=== PATIENT | female | born 1995 | race African-American/Black ===

== ENCOUNTER → 2019-12-26 11:11 | Outpatient (BNVA) | payer OTHER, SELFPAY | PROVIDERS: PCP Internal Medicine; Referring Provider Internal Medicine; Visit Provider Advanced Practice Midwife | DX: Z76.89 Persons encountering health services in other specified circumstances (principal) ==

== ENCOUNTER 2020-01-10 08:16 | Outpatient (REF) | payer OTHER, SELFPAY ==
[2020-01-11 09:41] LABS: BV Int Neg Control Negative (Negative); BV Int Pos Control Positive (Positive)
== END 2020-01-10 08:17 | disposition home or self-care (01) ==
LOC: HO.LAB 08:16
PROVIDERS: Visit Provider Advanced Practice Midwife
DX: N92.6 Irregular menstruation, unspecified (principal); R10.2 Pelvic and perineal pain; E28.2 Polycystic ovarian syndrome; E66.9 Obesity, unspecified
CPT/HCPCS: 87480; 87510; 87660

== ENCOUNTER 2020-01-16 08:32 | Outpatient (REF) | payer OTHER, SELFPAY ==
--- NOTE | 2020-01-16 08:37 | US_ITS ---
EXAMINATION: PELVIC ULTRASOUND CLINICAL INFORMATION: Pelvic pain COMPARISON: Previous pelvic ultrasound January [address] of the abdomen and pelvis February 2018 TECHNIQUE: Transabdominal and transvaginal pelvic ultrasound. Transvaginal exam was performed for better visualization of the uterus and ovaries. FINDINGS: The uterus is anteverted and measures 10.2 x 5 x 6 cm in dimension. No focal uterine lesion is seen. The endometrium is thickened measuring 3.1 cm. There are nabothian cysts in the cervix. The right ovary is normal-appearing and measures 3.4 x 2.2 x 1.9 cm. The left ovary measures 4 x 2.4 x 2.8 cm contains a 1.5 cm complex cyst with internal echoes. There is no fluid in the pelvis. US/US pelvic complete IMPRESSION: Abnormally thickened endometrium measuring 3.1 cm. Small 1.5 cm complex left ovarian cyst.
--- NOTE | 2020-01-16 08:37 | US_ITS ---
EXAMINATION: PELVIC ULTRASOUND CLINICAL INFORMATION: Pelvic pain COMPARISON: Previous pelvic ultrasound January [address] of the abdomen and pelvis February 2018 TECHNIQUE: Transabdominal and transvaginal pelvic ultrasound. Transvaginal exam was performed for better visualization of the uterus and ovaries. FINDINGS: The uterus is anteverted and measures 10.2 x 5 x 6 cm in dimension. No focal uterine lesion is seen. The endometrium is thickened measuring 3.1 cm. There are nabothian cysts in the cervix. The right ovary is normal-appearing and measures 3.4 x 2.2 x 1.9 cm. The left ovary measures 4 x 2.4 x 2.8 cm contains a 1.5 cm complex cyst with internal echoes. There is no fluid in the pelvis. US/US transvaginal IMPRESSION: Abnormally thickened endometrium measuring 3.1 cm. Small 1.5 cm complex left ovarian cyst.
== END 2020-01-16 08:33 | disposition home or self-care (01) ==
LOC: HO.HMGCX 08:32
PROVIDERS: PCP Internal Medicine; Visit Provider Advanced Practice Midwife
DX: R10.2 Pelvic and perineal pain (principal)
CPT/HCPCS: 76830; 76856

== ENCOUNTER → 2020-01-19 11:27 | Outpatient (BNVA) | payer OTHER, SELFPAY | PROVIDERS: Visit Provider Advanced Practice Midwife | DX: Z76.89 Persons encountering health services in other specified circumstances (principal) ==

== ENCOUNTER 2020-02-27 06:38 | Outpatient (REF) | payer OTHER, SELFPAY ==
[2020-02-27 11:38] LABS: Anion Gap 10 (12-20); Blood Urea Nitrogen 9 mg/dL (9-16); Calcium 8.4 mg/dL (8.4-10.2); Carbon Dioxide 25 mmol/L (22-29); Chloride 105 mmol/L (96-108); Cholesterol 159 mg/dL; Estimated Glomerular Filt Rate > 60; Glucose Fasting 93 mg/dL (60-99); HDL Cholesterol 63 mg/dL; LDL Cholesterol Calculated 82 mg/dl; Potassium 4.1 mmol/l (3.3-5.1); Sodium 136 mmol/L (135-145); Triglycerides 72 mg/dL
[2020-02-27 11:42] LABS: Hematocrit 35.9 % (37-47); Hemoglobin 11.2 g/dl (12.0-16.0); Mean Corpuscular HGB Conc 31.2 g/dl (31.0-35.0); Mean Corpuscular Hemoglobin 25.9 pg (27.0-33.0); Mean Corpuscular Volume 82.9 fL (80-98); Mean Platelet Volume 10.5 fL (9.4-12.3); Platelet Count 382 X10*3/uL (160-400); Red Blood Count 4.33 X10*6/uL (4.20-5.50); Red Cell Distribution Width 15.8 % (11.0-16.0); White Blood Count 7.7 X10*3/uL (4.8-10.8)
[2020-02-27 11:53] LABS: Estimated Average Glucose 120 mg/dL; Hemoglobin A1c % 5.8 %
[2020-03-01 13:27] LABS: Calcium (PTHI) 8.8 mg/dL (8.6-10.2); PTHI 62 pg/mL (14-64)
[2020-03-03 13:32] LABS: Vitamin D 25-OH, D2 <4 ng/mL; Vitamin D 25-OH, D3 10 ng/mL; Vitamin D 25-OH, Total 10 ng/mL (30-100)
== END 2020-02-27 06:39 | disposition home or self-care (01) ==
LOC: HO.HMGCLDS 06:38
PROVIDERS: PCP Internal Medicine; Visit Provider Advanced Practice Midwife
DX: D22.9 Melanocytic nevi, unspecified (principal); R73.03 Prediabetes; E34.9 Endocrine disorder, unspecified; R79.89 Other specified abnormal findings of blood chemistry; M77.8 Other enthesopathies, not elsewhere classified; E66.01 Morbid (severe) obesity due to excess calories; D64.9 Anemia, unspecified; N92.6 Irregular menstruation, unspecified; R10.2 Pelvic and perineal pain; Z76.89 Persons encountering health services in other specified circumstances
CPT/HCPCS: 36415; 80048; 80061; 82306; 83036; 83970; 85027

== ENCOUNTER 2020-03-05 13:05 | Outpatient (REF) | payer OTHER, SELFPAY ==
--- NOTE | 2020-03-05 13:08 | US_ITS ---
EXAMINATION: US PELVIS, COMPLETE US TRANSVAGINAL CLINICAL INFORMATION: Dysmenorrhea. Nonspecific left ovarian cyst. COMPARISON: 01/16/2020 TECHNIQUE: Transabdominal and transvaginal imaging was performed. FINDINGS: LMP: December Uterus is anteverted , measuring 9.2 x 4 x 4.9 cm. No focal uterine lesion. Nabothian cysts present. Endometrial thickness 1 cm. Right ovary measures 4 x 2.2 x 2.2 cm. Volume 10.1 mL. Left ovary measures 3.2 x 2.1 x 2.5 cm. Volume 8.7 mL. Follicles in bilateral ovaries. No significant free fluid in the cul-de-sac. US/US pelvic complete IMPRESSION: Endometrium measures 1 cm, decrease in size as compared to the prior study. Interval resolution of the previously noted complex left ovarian cyst.
--- NOTE | 2020-03-05 13:08 | US_ITS ---
EXAMINATION: US PELVIS, COMPLETE US TRANSVAGINAL CLINICAL INFORMATION: Dysmenorrhea. Nonspecific left ovarian cyst. COMPARISON: 01/16/2020 TECHNIQUE: Transabdominal and transvaginal imaging was performed. FINDINGS: LMP: December Uterus is anteverted , measuring 9.2 x 4 x 4.9 cm. No focal uterine lesion. Nabothian cysts present. Endometrial thickness 1 cm. Right ovary measures 4 x 2.2 x 2.2 cm. Volume 10.1 mL. Left ovary measures 3.2 x 2.1 x 2.5 cm. Volume 8.7 mL. Follicles in bilateral ovaries. No significant free fluid in the cul-de-sac. US/US transvaginal IMPRESSION: Endometrium measures 1 cm, decrease in size as compared to the prior study. Interval resolution of the previously noted complex left ovarian cyst.
== END 2020-03-05 13:06 | disposition home or self-care (01) ==
LOC: HO.HMGCX 13:05
PROVIDERS: PCP Internal Medicine; Visit Provider Advanced Practice Midwife
DX: N83.202 Unspecified ovarian cyst, left side (principal)
CPT/HCPCS: 76830; 76856

== ENCOUNTER 2020-03-21 13:38 | Outpatient (REF) | payer OTHER, SELFPAY ==
[2020-03-21 14:00] LABS: COVID-19 Test Negative (Negative)
== END 2020-03-21 13:39 | disposition home or self-care (01) ==
LOC: HO.EMPCOV 13:38
PROVIDERS: Visit Provider Internal Medicine
DX: Z20.828 Contact with and (suspected) exposure to other viral communicable diseases (principal)
CPT/HCPCS: 87635; C9803

== ENCOUNTER 2020-04-03 13:19 | Outpatient (REF) | payer OTHER, SELFPAY ==
[2020-04-03 13:37] LABS: COVID-19 Test Negative (Negative)
== END 2020-04-03 13:20 | disposition home or self-care (01) ==
LOC: HO.EMPCOV 13:19
PROVIDERS: Visit Provider Internal Medicine
DX: Z20.822 Contact with and (suspected) exposure to COVID-19 (principal)
CPT/HCPCS: 36415; 87635; C9803

== ENCOUNTER → 2020-04-04 10:35 | Outpatient (BNVA) | payer OTHER, SELFPAY | PROVIDERS: Visit Provider Advanced Practice Midwife | DX: Z76.89 Persons encountering health services in other specified circumstances (principal) ==

== ENCOUNTER 2020-04-08 13:46 | Outpatient (REF) | payer OTHER, SELFPAY ==
[2020-04-08 14:08] LABS: COVID-19 Test Negative (Negative)
== END 2020-04-08 13:47 | disposition home or self-care (01) ==
LOC: HO.EMPCOV 13:46
PROVIDERS: Visit Provider Internal Medicine
DX: Z20.822 Contact with and (suspected) exposure to COVID-19 (principal)
CPT/HCPCS: 36415; 87635; C9803

== ENCOUNTER 2020-04-15 09:00 | Outpatient (RCR) | payer OTHER, SELFPAY ==
--- NOTE | 2020-05-03 10:11 | MHC.OT.DC ---
[address] [phone] F: [phone] Occupational Therapy Discharge Note Provider: CHRIS BOLAND MD Diagnosis: RIGHT HAND THUMB TENDONITIS Date of Surgery: Date of Evaluation: 02/29/20 Date of Discharge: 05/03/20 Treatments to Date: 8 Cancellations to Date: 0 No Shows to Date: 0 Discharge Status: Independent with HEP Recommend MD Follow-up Discharge Summary: CON'T MILD RADIAL WRIST AND VOLAR THUMB EDEMA NOTED. CON'T C/O INTERMITTANT PAIN (/10) WITH THUMB ADD/WRIST FLEX AND RADIAL DEV VS ULNA DEV. PLATEAU IN IMPROVEMENT. Electronically Signed By: ROSA BOYER OT CHT Reviewed/agree with student documentation: N/A Therapist: Please Sign and return to therapist, thank you for your referral.
== END 2020-05-03 10:10 | disposition other institution (70) ==
LOC: HO.OT 09:00
PROVIDERS: PCP Internal Medicine; Visit Provider Internal Medicine
DX: M77.8 Other enthesopathies, not elsewhere classified (principal)
CPT/HCPCS: 29125; 97033; 97035; 97110; 97165; 97760

== ENCOUNTER → 2020-04-18 08:58 | Outpatient (BNVA) | payer OTHER, SELFPAY | PROVIDERS: PCP Internal Medicine; Visit Provider Physician Assistant ==

== ENCOUNTER 2020-04-18 10:18 | Outpatient (REF) | payer OTHER, SELFPAY ==
[2020-04-18 10:39] LABS: COVID-19 Test Negative (Negative)
== END 2020-04-18 10:19 | disposition home or self-care (01) ==
LOC: HO.EMPCOV 10:18
PROVIDERS: Visit Provider Internal Medicine
DX: Z20.822 Contact with and (suspected) exposure to COVID-19 (principal)
CPT/HCPCS: 36415; 87635; C9803

== ENCOUNTER → 2020-04-29 08:56 | Outpatient (BNVA) | payer OTHER, SELFPAY | PROVIDERS: PCP Internal Medicine; Visit Provider Physician Assistant ==

== ENCOUNTER 2020-05-08 07:05 | Outpatient (REF) | payer OTHER, SELFPAY ==
[2020-05-08 11:04] LABS: MANUAL DIFF FLAG NO
[2020-05-08 11:18] LABS: Basophils Percent Auto 0.4 % (0-2); Eosinophils Absolute Auto 0.3 X10*3/uL (0.0-0.4); Eosinophils Percent Auto 3.5 % (0-4); Hematocrit 36.4 % (37-47); Hemoglobin 11.2 g/dl (12.0-16.0); Imm Gran Abs Auto 0.02 X10*3/uL (0.00-0.03); Imm Gran Pct Auto 0.3 % (0.0-0.4); Lymphocytes Absolute Auto 2.4 X10*3/uL (1.2-4.9); Lymphocytes Percent Auto 31.1 % (20-40); Mean Corpuscular HGB Conc 30.8 g/dl (31.0-35.0); Mean Corpuscular Volume 81.3 fL (80-98); Mean Platelet Volume 10.8 fL (9.4-12.3); Monocytes Absolute Auto 0.6 X10*3/uL (0.1-1.2); Neutrophils Absolute Auto 4.5 X10*3/uL (2.0-8.3); Neutrophils Percent Auto 57.7 % (45-73); Platelet Count 399 X10*3/uL (160-400); Red Blood Count 4.48 X10*6/uL (4.20-5.50); Red Cell Distribution Width 16.4 % (11.0-16.0); White Blood Count 7.8 X10*3/uL (4.8-10.8)
[2020-05-08 11:52] LABS: Alanine Aminotransferase 23 U/L (0-31); Albumin Level 3.8 g/dL (3.5-5.0); Alkaline Phosphatase 137 U/L (39-117); Anion Gap 13 (12-20); Aspartate Amino Transferase 19 U/L (5-31); Bilirubin Total 0.4 mg/dL (0.0-1.0); Blood Urea Nitrogen 14 mg/dL (9-16); Calcium 8.6 mg/dL (8.4-10.2); Carbon Dioxide 24 mmol/L (22-29); Chloride 104 mmol/L (96-108); Cholesterol 178 mg/dL; Estimated Glomerular Filt Rate > 60; Glucose Fasting 91 mg/dL (60-99); HDL Cholesterol 59 mg/dL; Iron 60 mcg/dL (30-160); LDL Cholesterol Calculated 98 mg/dl; Percent Iron Saturation 18 % (15-50); Potassium 4.2 mmol/L (3.3-5.1); Sodium 137 mmol/L (135-145); Total Iron Binding Capacity 331 mcg/dL (228-428); Triglycerides 106 mg/dL; Unsaturated Iron Binding 271 ug/dL
[2020-05-08 11:59] LABS: Ferritin 33 ng/mL (10-122); TSH reflex Free T4 0.83 uIU/mL (0.32-4.0); Vitamin D 25-OH Total 18.3 ng/mL (>30)
[2020-05-08 12:15] LABS: Estimated Average Glucose 120 mg/dL; Hemoglobin A1c % 5.8 %
[2020-05-08 12:25] LABS: Folate 10.4 ng/mL (> or = 4.0); Vitamin B12 434 pg/mL (200-900)
[2020-05-09 06:32] LABS: Insulin Level Total 47.3 uIU/mL
[2020-05-10 10:37] LABS: Calcium (PTHI) 8.5 mg/dL (8.6-10.2); PTHI 95 pg/mL (14-64)
[2020-05-11 13:02] LABS: Vitamin B1 7 nmol/L (8-30)
[2020-05-13 02:31] LABS: Vitamin A 35 mcg/dL (38-98)
[2020-05-14 01:17] LABS: Zinc 59 mcg/dL (60-130)
== END 2020-05-08 07:06 | disposition home or self-care (01) ==
LOC: HO.HMGCLDS 07:05
PROVIDERS: PCP Internal Medicine; Visit Provider Physician Assistant
DX: E66.01 Morbid (severe) obesity due to excess calories (principal)
CPT/HCPCS: 36415; 80053; 80061; 82306; 82607; 82728; 82746; 83036; 83525; 83540; 83970; 84425; 84443; 84590; 84630; 85025; 86140

== ENCOUNTER → 2020-05-13 09:13 | Outpatient (BNVA) | payer OTHER, SELFPAY | PROVIDERS: PCP Internal Medicine; Visit Provider Surgery ==

== ENCOUNTER 2020-05-13 15:20 | Outpatient (REF) | payer OTHER, SELFPAY ==
[2020-05-14 13:57] LABS: H Pylori Breath Test NOT DETECTED (NOT DETECTED)
== END 2020-05-13 15:21 | disposition home or self-care (01) ==
LOC: HO.LNP 15:20
PROVIDERS: Visit Provider Physician Assistant
DX: E66.01 Morbid (severe) obesity due to excess calories (principal)
CPT/HCPCS: 83013

== ENCOUNTER 2020-05-27 07:17 | Outpatient (REF) | payer OTHER, SELFPAY ==
--- NOTE | 2020-05-27 07:22 | ECG_ITS ---
Test Reason : MORBID OBESITY Blood Pressure : / mmHG Vent. Rate : 073 BPM Atrial Rate : 073 BPM P-R Int : 134 ms QRS Dur : 080 ms QT Int : 386 ms P-R-T Axes : 060 035 021 degrees QTc Int : 425 ms Normal sinus rhythm Normal ECG When compared with ECG of 04-JAN-2018 12:30, No significant change was found Referred By: Jenny Brooks Electronically Signed By:Alexis Macias
[2020-05-27 08:54] LABS: Vitamin D 25-OH Total 18.1 ng/mL (>30)
[2020-05-31 01:57] LABS: Vitamin A 28 mcg/dL (38-98)
== END 2020-05-27 07:18 | disposition home or self-care (01) ==
LOC: HO.LAB 07:17
PROVIDERS: PCP Internal Medicine; Visit Provider Surgery
DX: Z01.818 Encounter for other preprocedural examination (principal); E50.9 Vitamin A deficiency, unspecified; E66.01 Morbid (severe) obesity due to excess calories; R06.02 Shortness of breath; E55.9 Vitamin D deficiency, unspecified; Z71.3 Dietary counseling and surveillance; Z68.42 Body mass index [BMI] 45.0-49.9, adult
CPT/HCPCS: 36415; 82306; 84590; 93005

== ENCOUNTER 2020-05-30 08:12 | Outpatient (REF) | payer OTHER, SELFPAY | END 2020-05-30 08:13 | disposition home or self-care (01) | LOC: HO.LAB 08:12 | PROVIDERS: PCP Internal Medicine; Visit Provider Advanced Practice Midwife | DX: Z01.419 Encounter for gynecological examination (general) (routine) without abnormal findings (principal); E66.01 Morbid (severe) obesity due to excess calories; R06.02 Shortness of breath; Z79.899 Other long term (current) drug therapy | CPT/HCPCS: 88142 ==

== ENCOUNTER 2020-06-11 07:40 | Outpatient (REF) | payer OTHER, SELFPAY ==
[2020-06-11 07:56] LABS: COVID-19 Test Positive (Negative); IDNOW Serial# 55D5AD1C
== END 2020-06-11 07:41 | disposition home or self-care (01) ==
LOC: HO.EMPCOV 07:40
PROVIDERS: Visit Provider Internal Medicine
DX: Z20.822 Contact with and (suspected) exposure to COVID-19 (principal)
CPT/HCPCS: 36415; 87635; C9803

== ENCOUNTER → 2020-06-17 08:10 | Outpatient (BNVA) | payer OTHER, SELFPAY | PROVIDERS: PCP Internal Medicine; Visit Provider Dietitian, Registered ==

== ENCOUNTER 2020-07-01 10:04 | Outpatient (REF) | payer OTHER, SELFPAY | END 2020-07-01 10:05 | disposition home or self-care (01) | LOC: HO.HOSX 10:04 | PROVIDERS: Visit Provider Orthopaedic Surgery | DX: Z13.89 Encounter for screening for other disorder (principal) ==

== ENCOUNTER 2020-07-15 11:49 | Outpatient (REF) | payer OTHER, SELFPAY ==
--- NOTE | ~2020-07-15 | XR_ITS ---
EXAMINATION: XR HAND, RIGHT CLINICAL INFORMATION: Pain COMPARISON: None TECHNIQUE: 3 of the right hand and 2 additional views of the right thumb. FINDINGS: The bones and soft tissues are normal. No fracture. Alignment is anatomic. Joint spaces are maintained. No erosions or soft tissue calcifications. XR/XR hand RT min 3V IMPRESSION: Normal right hand.
== END 2020-07-15 11:50 | disposition home or self-care (01) ==
LOC: HO.HOSX 11:49
PROVIDERS: Visit Provider Orthopaedic Surgery
DX: M65.4 Radial styloid tenosynovitis [de Quervain] (principal); M79.641 Pain in right hand
CPT/HCPCS: 20550; 73130; 99202; J1100

== ENCOUNTER → 2020-09-12 15:38 | Outpatient (BNVA) | payer OTHER, SELFPAY | PROVIDERS: PCP Internal Medicine; Visit Provider Surgery ==

== ENCOUNTER → 2020-09-24 13:05 | Outpatient (BNVA) | payer OTHER, SELFPAY | PROVIDERS: PCP Internal Medicine; Referring Provider Internal Medicine; Visit Provider Surgery ==

== ENCOUNTER → 2020-10-04 08:49 | Outpatient (BNVA) | payer OTHER, SELFPAY | PROVIDERS: PCP Internal Medicine; Visit Provider Advanced Practice Midwife | DX: N93.9 Abnormal uterine and vaginal bleeding, unspecified (principal) | CPT/HCPCS: 81025 ==

== ENCOUNTER 2020-10-08 07:07 | Outpatient (REF) | payer OTHER, SELFPAY ==
--- NOTE | ~2020-10-08 | XR_ITS ---
EXAMINATION: XR CHEST CLINICAL INFORMATION: Shortness of breath COMPARISON: None TECHNIQUE: 2 views of the chest were obtained. FINDINGS: No significant abnormality is noted involving the heart, lungs, mediastinum, bony thorax or soft tissues. XR/XR chest 2V IMPRESSION: Unremarkable chest examination.
[2020-10-08 11:36] LABS: Hematocrit 37.6 % (37-47); Hemoglobin 11.4 g/dl (12.0-16.0); Mean Corpuscular HGB Conc 30.3 g/dl (31.0-35.0); Mean Corpuscular Hemoglobin 24.7 pg (27.0-33.0); Mean Corpuscular Volume 81.4 fL (80-98); Mean Platelet Volume 10.9 fL (9.4-12.3); Platelet Count 384 X10*3/uL (160-400); Red Blood Count 4.62 X10*6/uL (4.20-5.50); Red Cell Distribution Width 16.6 % (11.0-16.0); White Blood Count 7.9 X10*3/uL (4.8-10.8)
[2020-10-08 11:56] LABS: Thyroid Stimulating Hormone 1.28 uIU/mL (0.32-4.0)
== END 2020-10-08 07:08 | disposition home or self-care (01) ==
LOC: HO.HMGCX 07:07
PROVIDERS: Absent Provider Surgery; PCP Internal Medicine; Visit Provider Advanced Practice Midwife
DX: R06.02 Shortness of breath (principal); N92.1 Excessive and frequent menstruation with irregular cycle; N93.9 Abnormal uterine and vaginal bleeding, unspecified
CPT/HCPCS: 36415; 71046; 84443; 85027

== ENCOUNTER 2020-10-11 14:52 | Outpatient (REF) | payer OTHER, SELFPAY | END 2020-10-11 14:53 | disposition home or self-care (01) | LOC: HO.LAB 14:52 | PROVIDERS: PCP Internal Medicine; Visit Provider Advanced Practice Midwife | DX: N92.0 Excessive and frequent menstruation with regular cycle (principal); N94.6 Dysmenorrhea, unspecified | CPT/HCPCS: 58100; 88305 ==

== ENCOUNTER 2020-10-20 04:22 | Emergency (ER) | payer OTHER, SELFPAY ==
--- NOTE | ~2020-10-20 | CT_ITS ---
EXAMINATION: CT ABDOMEN AND PELVIS WITHOUT CONTRAST CLINICAL INFORMATION: Suprapubic pain status post endometrial biopsy. COMPARISON: None TECHNIQUE: Multidetector volumetric imaging was performed from the superior aspect of the liver through the pubic symphysis. Sagittal and coronal reformatted images were obtained on the technologist's workstation. This CT examination was performed using dose optimization techniques as appropriate, variously including the following: *Automated exposure control *Adjustment of mA and/or kV according to patient size (this includes techniques or standardized protocols for targeted exams where dose is matched to indication/reason for exam; i.e. extremities or head) *Use of iterative reconstruction technique DLP: 1131 mGy-cm FINDINGS: LUNG BASES: The visualized lung bases are unremarkable. LIVER, GALLBLADDER, AND BILIARY TREE: The liver is normal in size, shape, and attenuation. No focal hepatic lesion or biliary ductal dilatation is present. Gallbladder unremarkable. PANCREAS: Unremarkable. SPLEEN: Unremarkable. ADRENAL GLANDS: Unremarkable. KIDNEYS AND URETERS: The kidneys are normal in size, shape, and attenuation. There is a 2 mm nonobstructive calculus in upper pole of left kidney. No ureteral calculi or hydronephrosis. No perinephric abnormalities. BLADDER: Underdistended.. GASTROINTESTINAL TRACT: The small and large bowel are unremarkable. The appendix is unremarkable. ABDOMINAL WALL: No significant hernia is appreciated. LYMPH NODES: Normal. VASCULAR: Unremarkable. PELVIC VISCERA: Uterus and adnexa unremarkable. OSSEOUS STRUCTURES: Unremarkable. CT/CT abdomen pelvis wo con IMPRESSION: No acute findings. Nonobstructive 2 mm calculus, left upper kidney.
[2020-10-20 04:24] VITALS: BP 110/61; PULSE 75; RESP 18; TEMP 36.5; O2SAT 95; BMI 31.9
--- NOTE | 2020-10-20 04:51 | ED_ITS ---
HPI - Female Genitourinary General Chief complaint: Vaginal Bleeding Stated complaint: vaginal bleeding/abd pain Time Seen by Provider: 10/20/20 04:44 Source: patient Mode of arrival: ambulatory Limitations: no limitations History of Present Illness HPI Narrative: Patient comes emergency room complaining of vaginal bleeding. Patient states that on October 11 she had an endometrial biopsy done, she did well afterwards, but 1 week later, she started having abdominal cramping and vaginal bleeding. Patient states she changes 2 pads every 4 hours. Related Data Home Medications Medication Instructions Recorded Confirmed fluticasone propionate 50 1 spray INTRANASAL DAILY 10/04/20 mcg/actuation nasal spray,suspension (Flonase Allergy Relief) Previous Rx's Medication Instructions Recorded fluticasone propionate 110 110 mcg INHALATION BID 30 Days #12 02/14/20 mcg/actuation HFA aerosol inhaler g loratadine 10 mg tablet 10 mg PO DAILY 90 Days #90 tab 02/14/20 montelukast 10 mg tablet 10 mg PO DAILY 90 Days #90 tab 02/14/20 cholecalciferol (vitamin D3) 1,250 1,250 mcg PO QWEEK #4 cap 05/13/20 mcg (50,000 unit) capsule valacyclovir 500 mg tablet 500 mg PO BID #60 tab 05/30/20 phentermine 37.5 mg capsule 37.5 mg PO DAILY #30 cap 09/24/20 tranexamic acid 650 mg tablet 1,300 mg PO BID 5 Days #20 tab 10/20/20 Allergies Allergy/AdvReac Type Severity Reaction Status Date / Time No Known Allergies Allergy Verified 10/20/20 04:24 [No Known Allergies*] Review of Systems Review of Systems: Constitutional : No Weight loss, No Fever, No Chills, No Night Sweats, No Fatigue, No Malaise ENT/Mouth : No Hearing loss, No Ear Pain, No Nasal Congestion, No Sinus Pain, No Hoarseness, No sore throat, No Rhinorrhea, No Swallowing Difficulty Eyes: No Eye Pain, No Swelling, No Redness, No Foreign Body, No Discharge, No Vision Changes Cardiovascular : No Chest Pain, No SOB, No Dyspnea on Exertion, No Orthopnea, No Edema, No Palpitations Respiratory : No Cough, No Sputum, No Wheezing, No Smoke Exposure, No Dyspnea Gastrointestinal : No Nausea, No Vomiting, No Diarrhea, No Constipation, suprapubic cramping, No Hematochezia, No Melena Genitourinary : Heavy vaginal bleeding, No Dysuria, No Urinary Frequency, No Hematuria, No Urinary Incontinence, No Urgency, No Flank Pain, No Urinary Flow Changes, No Hesitancy Musculoskeletal : No joint pain, No Myalgias, No Joint Swelling Skin : No Skin Lesions, No rash Neuro : No Weakness, No Numbness, No Paresthesias, No Loss of Consciousness, No Dizziness, No Headache Psych : No Anxiety/Panic, No Depression, No SI/HI/AH/VH, No Social Issues, Heme/Lymph: No Bruising, No Bleeding,No Lymphadenopathy Endocrine : No Polyuria, No Polydipsia, No Temperature Intolerance PMFSH Past Medical History Medical History Adult BMI 45.0-49.9 kg/sq m Change in mole Elevated parathyroid hormone Elevated testosterone level GERD (gastroesophageal reflux disease) Heavy menstrual bleeding History of asthma HSV (herpes simplex virus) infection Hx of constipation Hx of iron deficiency Hx of renal calculi Menometrorrhagia Prediabetes Surgical History History of vocal cord polypectomy Family History Family History Father Diabetes mellitus Mother No problems noted. Brother No problems noted. 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 Oriented X3. No acute distress. Eyes: Pupils equal, round and reactive to light. ENT: Pharynx normal. Neck: Normal inspection. Neck supple. No lymph nodes noted. No crepitus CVS: Normal heart rate and rhythm. Pulses normal. Normal S1 and S2 Respiratory: No respiratory distress. Breath sounds normal. No Wheezing. No rales Abdomen: Soft, moderate discomfort to palpation over the suprapubic area, No rigidity. No distention. : Obvious abnormality seen, [id number] amount of dark blood in the vaginal vault, no active cervical bleeding Skin: Skin warm and dry. Normal skin color. Normal skin turgor. Extremities: No lower extremity edema. No lower extremity edema. No Lacerations. No Rash Neuro: Oriented X 3. No motor deficit. No sensory deficit. Moving all extermities. No slurred speech. Course Course Course Narrative: I discussed the labs and imaging with, she will follow up with her Obgyn MDM - Female Genitourinary Lab Data Result diagrams: 10/20/20 05:01 10/20/20 05:01 Labs: Lab Results 10/20/20 10/20/20 10/20/20 Range/Units 05:01 05:01 05:14 WBC 8.9 (4.8-10.8) X10*3/uL RBC 4.05 L (4.20-5.50) X10*6/uL Hgb 10.3 L (12.0-16.0) g/dl Hct 32.4 L (37-47) % MCV 80.0 (80-98) fL MCH 25.4 L (27.0-33.0) pg MCHC 31.8 (31.0-35.0) g/dl RDW 16.5 H (11.0-16.0) % Plt Count 301 (160-400) X10*3/uL MPV 9.8 (9.4-12.3) fL Immature Gran % (Auto) 0.2 (0.0-0.4) % Neut % (Auto) 59.8 (45-73) % Lymph % (Auto) 29.4 (20-40) % [place] % (Auto) 7.3 (2-11) % Eos % (Auto) 2.9 (0-4) % Baso % (Auto) 0.4 (0-2) % Lymph # (Auto) 2.6 (1.2-4.9) X10*3/uL [place] # (Auto) 0.7 (0.1-1.2) X10*3/uL Eos # (Auto) 0.3 (0.0-0.4) X10*3/uL Baso # (Auto) 0.0 (0.0-0.2) X10*3/uL Abs Immat Gran (auto) 0.02 (0.00-0.03) X10*3/uL Absolute Neuts (auto) 5.3 (2.0-8.3) X10*3/uL Absolute Nucleated RBC 0.000 (0.0-0.012) X10*3/uL Nucleated RBC % (auto) 0.0 (0.0-0.2) /100WBC Sodium 139 (135-145) mmol/L Potassium 3.7 (3.3-5.1) mmol/L Chloride 110 H (96-108) mmol/L Carbon Dioxide 23 (22-29) mmol/L Anion Gap 10 L (12-20) BUN 8 L (9-16) mg/dL Creatinine 0.76 (0.5-1.4) mg/dL Estim Creat Clear Calc 121.1 Estimated GFR > 60 Random Glucose 92 (60-115) mg/dL Calcium 8.4 (8.4-10.2) mg/dL Beta HCG, Quant < 2 mIU/mL Urine Color Urine Appearance Urine pH (5.0-8.0) Ur Specific Dunbar (1.005-1.025) Urine Protein (NEG-TRACE) MG/DL Urine Glucose (UA) (NEG) MG/DL Urine Ketones (NEG) MG/DL Urine Blood (NEG) Urine Nitrite Ur Leukocyte Esterase Urine RBC (0) /HPF Urine WBC (0-4) /HPF Ur Squamous Epith Cells /LPF Urine Bacteria /LPF Urine Mucus /LPF Urine Test NEGATIVE (NEGATIVE) 10/20/20 Range/Units 05:14 WBC (4.8-10.8) X10*3/uL RBC (4.20-5.50) X10*6/uL Hgb (12.0-16.0) g/dl Hct (37-47) % MCV (80-98) fL MCH (27.0-33.0) pg MCHC (31.0-35.0) g/dl RDW (11.0-16.0) % Plt Count (160-400) X10*3/uL MPV (9.4-12.3) fL Immature Gran % (Auto) (0.0-0.4) % Neut % (Auto) (45-73) % Lymph % (Auto) (20-40) % [place] % (Auto) (2-11) % Eos % (Auto) (0-4) % Baso % (Auto) (0-2) % Lymph # (Auto) (1.2-4.9) X10*3/uL [place] # (Auto) (0.1-1.2) X10*3/uL Eos # (Auto) (0.0-0.4) X10*3/uL Baso # (Auto) (0.0-0.2) X10*3/uL Abs Immat Gran (auto) (0.00-0.03) X10*3/uL Absolute Neuts (auto) (2.0-8.3) X10*3/uL Absolute Nucleated RBC (0.0-0.012) X10*3/uL Nucleated RBC % (auto) (0.0-0.2) /100WBC Sodium (135-145) mmol/L Potassium (3.3-5.1) mmol/L Chloride (96-108) mmol/L Carbon Dioxide (22-29) mmol/L Anion Gap (12-20) BUN (9-16) mg/dL Creatinine (0.5-1.4) mg/dL Estim Creat Clear Calc Estimated GFR Random Glucose (60-115) mg/dL Calcium (8.4-10.2) mg/dL Beta HCG, Quant mIU/mL Urine Color RED Urine Appearance TURBID Urine pH 5.0 (5.0-8.0) Ur Specific Dun[place] 1.025 (1.005-1.025) Urine Protein 3+ H (NEG-TRACE) MG/DL Urine Glucose (UA) 100 H (NEG) MG/DL Urine Ketones 15 (NEG) MG/DL Urine Blood 3+ H (NEG) Urine Nitrite Not Reportable Ur Leukocyte Esterase Not Reportable Urine RBC TNTC H (0) /HPF Urine WBC 0 (0-4) /HPF Ur Squamous Epith Cells 2+ /LPF Urine Bacteria NONE /LPF Urine Mucus TRACE /LPF Urine Test (NEGATIVE) Imaging Data CT scan - abdomen: Radiologist's impression: FINDINGS: LUNG BASES: The visualized lung bases are unremarkable.? LIVER, GALLBLADDER, AND BILIARY TREE: The liver is normal in size, shape, and attenuation. No focal hepatic lesion or biliary ductal dilatation is present. Gallbladder unremarkable.? PANCREAS: Unremarkable.? SPLEEN: Unremarkable.? ADRENAL GLANDS: Unremarkable.? KIDNEYS AND URETERS: The kidneys are normal in size, shape, and attenuation. There is a 2 mm nonobstructive calculus in upper pole of left kidney. No ureteral calculi or hydronephrosis. No perinephric abnormalities. BLADDER: Underdistended..? GASTROINTESTINAL TRACT: The small and large bowel are unremarkable. The appendix is unremarkable.? ABDOMINAL WALL: No significant hernia is appreciated.? LYMPH NODES: Normal. VASCULAR: Unremarkable. PELVIC VISCERA: Uterus and adnexa unremarkable.? OSSEOUS STRUCTURES: Unremarkable.? CT/CT abdomen pelvis wo con IMPRESSION: No acute findings. Nonobstructive 2 mm calculus, left upper kidney.? Discharge Plan Discharge Clinical Impression: Abnormal uterine bleeding Patient Disposition: Home, Self-Care Instructions: Menorrhagia (ED) Additional Instructions: Please follow-up with your primary care physician tomorrow. If you have any worsening or new symptoms, please return to the emergency room or call 911 Prescriptions: New tranexamic acid 650 mg tablet 1,300 mg PO BID 5 Days Qty: 20 RF: 0 No Action fluticasone propionate 110 mcg/actuation HFA aerosol inhaler 110 mcg inhalation BID 30 Days Qty: 12 RF: 2 loratadine 10 mg tablet 10 mg PO DAILY 90 Days Qty: 90 RF: 0 montelukast 10 mg tablet 10 mg PO DAILY 90 Days Qty: 90 RF: 1 cholecalciferol (vitamin D3) 1,250 mcg (50,000 unit) capsule 1,250 mcg PO QWEEK Qty: 4 RF: 1 valacyclovir 500 mg tablet 500 mg PO BID Qty: 60 RF: 0 phentermine 37.5 mg capsule 37.5 mg PO DAILY Qty: 30 RF: 0 fluticasone propionate [Flonase Allergy Relief] 50 mcg/actuation spray,suspension 1 spray intranasal DAILY RF: 0
[2020-10-20 05:06] LABS: MANUAL DIFF FLAG NO
[2020-10-20 05:07] LABS: Basophils Percent Auto 0.4 % (0-2); Eosinophils Absolute Auto 0.3 X10*3/uL (0.0-0.4); Eosinophils Percent Auto 2.9 % (0-4); Hematocrit 32.4 % (37-47); Hemoglobin 10.3 g/dl (12.0-16.0); Imm Gran Abs Auto 0.02 X10*3/uL (0.00-0.03); Imm Gran Pct Auto 0.2 % (0.0-0.4); Lymphocytes Absolute Auto 2.6 X10*3/uL (1.2-4.9); Lymphocytes Percent Auto 29.4 % (20-40); Mean Corpuscular HGB Conc 31.8 g/dl (31.0-35.0); Mean Corpuscular Hemoglobin 25.4 pg (27.0-33.0); Mean Platelet Volume 9.8 fL (9.4-12.3); Monocytes Absolute Auto 0.7 X10*3/uL (0.1-1.2); Monocytes Percent Auto 7.3 % (2-11); Neutrophils Absolute Auto 5.3 X10*3/uL (2.0-8.3); Neutrophils Percent Auto 59.8 % (45-73); Platelet Count 301 X10*3/uL (160-400); Red Blood Count 4.05 X10*6/uL (4.20-5.50); Red Cell Distribution Width 16.5 % (11.0-16.0); White Blood Count 8.9 X10*3/uL (4.8-10.8)
[2020-10-20 05:26] LABS: Glucose Urine UA 100 MG/DL (NEG); Specific Gravity - Urine 1.025 (1.005-1.025); UACC Culture Trigger YES; Urine Blood 3+ (NEG); Urine Ketones 15 MG/DL (NEG); Urine Protein 3+ MG/DL (NEG-TRACE)
[2020-10-20 05:29] LABS: Appearance Urine TURBID; Color Urine RED
[2020-10-20 05:31] LABS: Anion Gap 10 (12-20); Blood Urea Nitrogen 8 mg/dL (9-16); Calcium 8.4 mg/dL (8.4-10.2); Carbon Dioxide 23 mmol/L (22-29); Chloride 110 mmol/L (96-108); Creatinine Clr Calc Pharmacy 121.1; Estimated Glomerular Filt Rate > 60; Glucose Random 92 mg/dL (60-115); Potassium 3.7 mmol/L (3.3-5.1); Sodium 139 mmol/L (135-145)
[2020-10-20 05:32] LABS: UPreg QC Valid YES; Urine Pregnancy NEGATIVE (NEGATIVE)
[2020-10-20 05:37] LABS: Mucus Urine TRACE /LPF; RBC Urine TNTC /HPF (0); Squamous Epithelial Cell Urine 2+ /LPF; WBC Urine 0 /HPF (0-4)
[2020-10-20 05:38] LABS: HCG Quantitative < 2 mIU/mL
== END 2020-10-20 06:23 | disposition home or self-care (01) ==
PROVIDERS: Emergency Provider Emergency Medicine; PCP Internal Medicine
DX: N92.0 Excessive and frequent menstruation with regular cycle (principal); Z79.899 Other long term (current) drug therapy
CPT/HCPCS: 36415; 74176; 80048; 81001; 81025; 84702; 85025; 99283

== ENCOUNTER → 2020-10-21 09:11 | Outpatient (BNVA) | payer OTHER, SELFPAY | PROVIDERS: PCP Internal Medicine; Referring Provider Internal Medicine; Visit Provider Surgery ==

== ENCOUNTER 2020-10-22 13:06 | Outpatient (REF) | payer OTHER, SELFPAY ==
[2020-10-22 14:01] LABS: MANUAL DIFF FLAG NO
[2020-10-22 14:06] LABS: Basophils Percent Auto 0.5 % (0-2); Eosinophils Absolute Auto 0.2 X10*3/uL (0.0-0.4); Eosinophils Percent Auto 1.8 % (0-4); Hematocrit 35.1 % (37-47); Hemoglobin 10.8 g/dl (12.0-16.0); Imm Gran Abs Auto 0.02 X10*3/uL (0.00-0.03); Imm Gran Pct Auto 0.2 % (0.0-0.4); Lymphocytes Absolute Auto 2.6 X10*3/uL (1.2-4.9); Lymphocytes Percent Auto 29.2 % (20-40); Mean Corpuscular HGB Conc 30.8 g/dl (31.0-35.0); Mean Corpuscular Hemoglobin 24.8 pg (27.0-33.0); Mean Corpuscular Volume 80.7 fL (80-98); Mean Platelet Volume 10.5 fL (9.4-12.3); Monocytes Absolute Auto 0.5 X10*3/uL (0.1-1.2); Monocytes Percent Auto 5.1 % (2-11); Neutrophils Absolute Auto 5.6 X10*3/uL (2.0-8.3); Neutrophils Percent Auto 63.2 % (45-73); Platelet Count 353 X10*3/uL (160-400); Red Blood Count 4.35 X10*6/uL (4.20-5.50); Red Cell Distribution Width 16.4 % (11.0-16.0); White Blood Count 8.8 X10*3/uL (4.8-10.8)
== END 2020-10-22 13:07 | disposition home or self-care (01) ==
LOC: HO.HMGCLDS 13:06
PROVIDERS: PCP Internal Medicine; Visit Provider Advanced Practice Midwife
DX: N93.9 Abnormal uterine and vaginal bleeding, unspecified (principal)
CPT/HCPCS: 36415; 85025

== ENCOUNTER → 2020-11-26 08:34 | Outpatient (BNVA) | payer SELFPAY | PROVIDERS: PCP Internal Medicine | DX: Z20.822 Contact with and (suspected) exposure to COVID-19 (principal) | CPT/HCPCS: 36415; 87635 ==

== ENCOUNTER → 2020-12-25 15:09 | Outpatient (BNVA) | payer OTHER, SELFPAY | PROVIDERS: PCP Internal Medicine; Referring Provider Internal Medicine; Visit Provider Surgery ==

== ENCOUNTER → 2021-01-13 14:06 | Outpatient (BNVA) | payer OTHER, SELFPAY | PROVIDERS: PCP Internal Medicine; Referring Provider Internal Medicine; Visit Provider Physician Assistant Surgical | DX: N93.9 Abnormal uterine and vaginal bleeding, unspecified (principal) | CPT/HCPCS: 81025 ==

== ENCOUNTER 2021-03-06 22:07 | Emergency (ER) | payer OTHER, SELFPAY ==
--- NOTE | ~2021-03-06 | XR_ITS ---
EXAMINATION: XR CHEST CLINICAL INFORMATION: Pain COMPARISON: None TECHNIQUE: 2 views of the chest were obtained. FINDINGS: No significant abnormality is noted involving the heart, lungs, mediastinum, bony thorax or soft tissues. XR/XR chest 2V IMPRESSION: Unremarkable examination.
[2021-03-06 22:10] VITALS: BP 137/77; PULSE 88; RESP 20; TEMP 36.6; O2SAT 97; BMI 47.5
[2021-03-07 03:03] VITALS: BP 140/71; PULSE 84; RESP 18; O2SAT 98
[2021-03-07 04:05] VITALS: BP 103/61; PULSE 77; RESP 16; O2SAT 98
[2021-03-07 06:10] VITALS: BP 123/75; PULSE 75; RESP 100; TEMP 36.6; O2SAT 100
--- NOTE | 2021-03-07 06:43 | ED.BACK ---
HPI - Back Pain/Injury General Chief Complaint: Back Pain/Injury Stated Complaint: sob ,dry cough ,upper back pain Time Seen by Provider: 03/07/21 06:43 Source: patient Mode of arrival: ambulatory Limitations: no limitations History of Present Illness MD elicited complaint: back pain Pertinent past history: other (recent URI with coughing) Onset (ago): week(s) (1) Timing: constant Severity: moderate Similar Symptoms Previously: No Quality: sharp Location: thoracic spine Radiation: none Exacerbating factors: movement, deep breaths, coughing/sneezing and lifting Relieving factors: none Context: other (started after URI) Associated symptoms: denies other symptoms Work related injury: No Related Data Previous Rx's Medication Instructions Recorded progesterone micronized 200 mg 200 mg PO BEDTIME 10 Days #30 cap 01/20/21 capsule (Prometrium) amoxicillin 875 mg-potassium 1 tab PO Q12H 7 Days #14 tab 02/12/21 clavulanate 125 mg tablet (Augmentin) albuterol sulfate 90 mcg/actuation 1 inh INHALATION QID PRN 30 Days 02/18/21 aerosol inhaler (ProAir HFA) #18 g fluconazole 150 mg tablet 150 mg PO Q3D 0 Days #2 tab 02/18/21 (Diflucan) fluticasone propionate 110 110 mcg INHALATION BID 30 Days #12 02/18/21 mcg/actuation HFA aerosol inhaler g fluticasone propionate 50 1 spray INTRANASAL DAILY 30 Days 02/18/21 mcg/actuation nasal #16 g spray,suspension (Flonase Allergy Relief) loratadine 10 mg tablet 10 mg PO DAILY 90 Days #90 tab 02/18/21 montelukast 10 mg tablet 10 mg PO DAILY 90 Days #90 tab 02/18/21 cyclobenzaprine 10 mg tablet 10 mg PO TID PRN #14 tab 03/07/21 lidocaine 5 % topical patch 1 patch TOPICAL DAILY PRN #30 ea 03/07/21 Allergies Allergy/AdvReac Type Severity Reaction Status Date / Time No Known Allergies Allergy Verified 02/18/21 09:18 [No Known Allergies*] Review of Systems Review of Systems: Constitutional : No Weight loss, No Fever, No Chills, ENT/Mouth : No Hearing loss, No Ear Pain, No Nasal Congestion, No Sinus Pain, No Hoarseness, No sore throat, No Rhinorrhea, No Swallowing Difficulty Cardiovascular : No Chest Pain, No SOB Respiratory :pos Cough, No Dyspnea Gastrointestinal : No Nausea, No Vomiting, No Diarrhea, No abdominal Pain, No Hematochezia, No Melena Genitourinary : No Dysuria, No Urinary Frequency, No Hematuria, No Urinary Incontinence, Musculoskeletal : positive back pain Skin : No Skin Lesions, No rash Neuro : No Weakness, No Numbness, No Paresthesias, no loss of bowel or bladder incontinence, no saddle anesthesia PMFSH Past Medical History Medical History Adult BMI 45.0-49.9 kg/sq m Change in mole Elevated parathyroid hormone Elevated testosterone level GERD (gastroesophageal reflux disease) Heavy menstrual bleeding History of asthma HSV (herpes simplex virus) infection Hx of constipation Hx of iron deficiency Hx of renal calculi Menometrorrhagia Prediabetes Surgical History History of vocal cord polypectomy Family History Family History Father Diabetes mellitus Mother No problems noted. Brother No problems noted. 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 Oriented X3. No acute distress. Eyes: Pupils equal, round and reactive to light. ENT: Pharynx normal. Neck: Normal inspection. Neck supple. CVS: Normal heart rate and rhythm. Pulses normal. Respiratory: No respiratory distress. Breath sounds normal. Abdomen: Soft and nontender. Back: ttp along Left paraspinals and left rhomboids that reproduce the pain Skin: Skin warm and dry. Normal skin color. Normal skin turgor. Extremities: No lower extremity edema. No calf ttp Neuro: Oriented X 3. No motor deficit. No sensory deficit. MDM - Back Pain/Injury MDM Narrative Medical decision making narrative: 25 yo female with L sided paraspinal and rhomboid pain post URI likely due to coughing - suspect MSK it is all reproduceable. Her xray is negative, she has no hypoxia no signs of DVT doubt PE. Will start on flexeril and lidocaine patches. Discharge Plan Discharge Clinical Impression: Acute thoracic myofascial strain Qualifiers: Encounter type: initial encounter Qualified Code(s): S29.019A - Strain of muscle and tendon of unspecified wall of thorax, initial encounter Patient Disposition: Home, Self-Care Instructions: Muscle Strain (ED) Additional Instructions: return to ED for any worsening symptoms or concerns Prescriptions: New cyclobenzaprine 10 mg tablet 10 mg PO TID PRN (Reason: muscle spasm) Qty: 14 RF: 0 lidocaine 5 % adhesive patch,medicated 1 patch topical DAILY PRN (Reason: pain) Qty: 30 RF: 0 No Action progesterone micronized [Prometrium] 200 mg capsule 200 mg PO BEDTIME 10 Days Qty: 30 RF: 0 fluticasone propionate 110 mcg/actuation HFA aerosol inhaler 110 mcg inhalation BID 30 Days Qty: 12 RF: 5 fluticasone propionate [Flonase Allergy Relief] 50 mcg/actuation spray,suspension 1 spray intranasal DAILY 30 Days Qty: 16 RF: 5 loratadine 10 mg tablet 10 mg PO DAILY 90 Days Qty: 90 RF: 0 fluconazole [Diflucan] 150 mg tablet 150 mg PO Q3D 0 Days Qty: 2 RF: 0 montelukast 10 mg tablet 10 mg PO DAILY 90 Days Qty: 90 RF: 1 albuterol sulfate [ProAir HFA] 90 mcg/actuation HFA aerosol inhaler 1 inh inhalation QID PRN (Reason: shortness of breath or wheezing) 30 Days Qty: 18 RF: 5 amoxicillin-pot clavulanate [Augmentin] 875-125 mg tablet 1 tab PO Q12H 7 Days Qty: 14 RF: 0 Stand Alone Forms: Work/School Release
== END 2021-03-07 07:14 | disposition home or self-care (01) ==
PROVIDERS: Emergency Provider Emergency Medicine; PCP Psychiatry & Neurology Neurology
DX: S29.019A Strain of muscle and tendon of unspecified wall of thorax, initial encounter (principal); R06.02 Shortness of breath; X58.XXXA Exposure to other specified factors, initial encounter; Y93.9 Activity, unspecified; Y92.9 Unspecified place or not applicable; Y99.9 Unspecified external cause status; Z79.899 Other long term (current) drug therapy
CPT/HCPCS: 71046; 99283; 99284

== ENCOUNTER → 2021-03-11 15:43 | Outpatient (BNVA) | payer OTHER, SELFPAY | PROVIDERS: PCP Internal Medicine; Visit Provider Physician Assistant Surgical ==

== ENCOUNTER → 2021-06-04 14:55 | Outpatient (BNVA) | payer OTHER, SELFPAY | PROVIDERS: PCP Internal Medicine; Referring Provider Internal Medicine; Visit Provider Physician Assistant Surgical | DX: E66.01 Morbid (severe) obesity due to excess calories (principal); Z79.899 Other long term (current) drug therapy; Z71.3 Dietary counseling and surveillance; Z68.41 Body mass index [BMI] 40.0-44.9, adult; Z48.815 Encounter for surgical aftercare following surgery on the digestive system | CPT/HCPCS: 99212 ==

== ENCOUNTER 2021-07-04 08:45 | Outpatient (REF) | payer OTHER, SELFPAY ==
[2021-07-04 16:09] LABS: CT PCR NOT DETECTED (Not Detect.); NG PCR NOT DETECTED (Not Detect.)
[2021-07-05 13:06] LABS: BV Int Neg Control Negative (Negative); BV Int Pos Control Positive (Positive)
== END 2021-07-04 08:46 | disposition home or self-care (01) ==
LOC: HO.LAB 08:45
PROVIDERS: Visit Provider Advanced Practice Midwife
DX: Z01.411 Encounter for gynecological examination (general) (routine) with abnormal findings (principal); N94.10 Unspecified dyspareunia; N92.6 Irregular menstruation, unspecified; Z20.2 Contact with and (suspected) exposure to infections with a predominantly sexual mode of transmission
CPT/HCPCS: 87480; 87491; 87510; 87591; 87660

== ENCOUNTER 2021-09-02 14:20 | Outpatient (REF) | payer OTHER, SELFPAY ==
--- NOTE | ~2021-09-02 | XR_ITS ---
EXAMINATION: XR FOOT, RIGHT CLINICAL INFORMATION: Pain. COMPARISON: None TECHNIQUE: AP, lateral, and oblique views of the right foot. FINDINGS: There is no visible acute fracture or dislocation. Alignment is anatomic. Joint spaces are maintained. There is a small calcaneal heel enthesophyte. Minimal dorsal mid to distal foot soft tissue swelling seen XR/XR foot RT min 3V IMPRESSION: No [id number] calcaneus enthesophyte. No visible acute fracture or dislocation. Moderate distal dorsal foot soft tissue swelling.
[2021-09-02 16:30] LABS: MANUAL DIFF FLAG NO
[2021-09-02 16:33] LABS: Basophils Percent Auto 0.4 % (0-2); Eosinophils Absolute Auto 0.3 X10*3/uL (0.0-0.4); Eosinophils Percent Auto 2.8 % (0-4); Hematocrit 34.4 % (37.0-47.0); Hemoglobin 10.6 g/dl (12.0-16.0); Imm Gran Abs Auto 0.05 X10*3/uL (0.00-0.03); Imm Gran Pct Auto 0.5 % (0.0-0.4); Lymphocytes Absolute Auto 2.5 X10*3/uL (1.2-4.9); Lymphocytes Percent Auto 22.7 % (20-40); Mean Corpuscular HGB Conc 30.8 g/dl (31.0-35.0); Mean Corpuscular Hemoglobin 24.3 pg (27.0-33.0); Mean Corpuscular Volume 78.9 fL (80.0-98.0); Mean Platelet Volume 10.5 fL (9.4-12.3); Monocytes Absolute Auto 0.6 X10*3/uL (0.1-1.2); Monocytes Percent Auto 5.1 % (2-11); Neutrophils Absolute Auto 7.5 x10*3/uL (2.0-8.3); Neutrophils Percent Auto 68.5 % (45-73); Platelet Count 401 X10*3/uL (160-400); Red Blood Count 4.36 X10*6/uL (4.20-5.50); Red Cell Distribution Width 18.1 % (11.0-16.0)
[2021-09-02 16:48] LABS: Alanine Aminotransferase 18 U/L (0-31); Albumin Level 3.8 g/dL (3.5-5.0); Alkaline Phosphatase 140 U/L (39-117); Anion Gap 13 (12-20); Aspartate Amino Transferase 14 U/L (5-31); Bilirubin Total < 0.2 mg/dL (0.0-1.0); Blood Urea Nitrogen 8 mg/dL (9-16); Calcium 8.6 mg/dL (8.4-10.2); Carbon Dioxide 23 mmol/L (22-29); Chloride 107 mmol/L (96-108); Estimated Glomerular Filt Rate > 60; Glucose Random 94 mg/dL (60-115); Sodium 139 mmol/L (135-145); Total Protein 7.3 g/dL (6.5-8.0)
[2021-09-02 16:54] LABS: Estimated Average Glucose 117 mg/dL; Hemoglobin A1c % 5.7 %
[2021-09-02 17:10] LABS: Ferritin 35 ng/mL (10-122)
[2021-09-02 17:13] LABS: Vitamin B12 479 pg/mL (200-900)
[2021-09-06 13:20] LABS: Vitamin D 25-OH, D2 <4 ng/mL; Vitamin D 25-OH, D3 17 ng/mL; Vitamin D 25-OH, Total 17 ng/mL (30-100)
== END 2021-09-02 14:21 | disposition home or self-care (01) ==
LOC: HO.HMGCX 14:20
PROVIDERS: PCP Internal Medicine; Visit Provider Internal Medicine
DX: R53.83 Other fatigue (principal); E66.01 Morbid (severe) obesity due to excess calories; M72.2 Plantar fascial fibromatosis; J45.909 Unspecified asthma, uncomplicated; E53.8 Deficiency of other specified B group vitamins; D50.9 Iron deficiency anemia, unspecified; E55.9 Vitamin D deficiency, unspecified; R73.03 Prediabetes; M79.671 Pain in right foot; Z68.41 Body mass index [BMI] 40.0-44.9, adult
CPT/HCPCS: 36415; 73630; 80053; 82306; 82607; 82728; 83036; 84443; 85025

== ENCOUNTER 2021-10-16 19:26 | Emergency (ER) | payer OTHER, SELFPAY ==
[2021-10-16 21:42] VITALS: BP 119/65; PULSE 87; RESP 18; TEMP 37.2; O2SAT 100; BMI 48.2
--- NOTE | 2021-10-16 21:46 | ECG_ITS ---
Test Reason : DIZZINESS Blood Pressure : / mmHG Vent. Rate : 079 BPM Atrial Rate : 079 BPM P-R Int : 144 ms QRS Dur : 082 ms QT Int : 402 ms P-R-T Axes : 061 020 012 degrees QTc Int : 460 ms Normal sinus rhythm Normal ECG When compared with ECG of 27-MAY-2020 07:28, No significant change was found Referred By: Generic ED Physician Electronically Signed By:CACHORRO STUBBS
[2021-10-16 23:44] LABS: MANUAL DIFF FLAG NO
[2021-10-17 00:04] LABS: Alanine Aminotransferase 18 U/L (0-31); Albumin Level 3.7 g/dL (3.5-5.0); Alkaline Phosphatase 127 U/L (39-117); Anion Gap 11 (12-20); Aspartate Amino Transferase 17 U/L (5-31); Bilirubin Total < 0.2 mg/dL (0.0-1.0); Blood Urea Nitrogen 9 mg/dL (9-16); Calcium 8.4 mg/dL (8.4-10.2); Carbon Dioxide 23 mmol/L (22-29); Chloride 106 mmol/L (96-108); Estimated Glomerular Filt Rate > 60; Glucose Random 112 mg/dL (60-115); Potassium 3.8 mmol/L (3.3-5.1); Sodium 136 mmol/L (135-145); Total Protein 6.8 g/dL (6.5-8.0)
[2021-10-17 00:05] LABS: COVID-19 Test Negative (Negative)
[2021-10-17 00:07] LABS: Appearance Urine CLEAR; Color Urine YELLOW; Glucose Urine UA NEG (NEG); Leukocyte Esterase Urine NEG (NEG); Nitrite Urine NEG (NEG); Specific Gravity - Urine >= 1.030 (1.005-1.025); Urine Blood NEG (NEG); Urine Ketones NEG (NEG); Urine Protein TRACE MG/DL (NEG-TRACE)
[2021-10-17 00:08] LABS: Basophils Percent Auto 0.3 % (0-2); Eosinophils Absolute Auto 0.2 X10*3/uL (0.0-0.4); Eosinophils Percent Auto 2.4 % (0-4); Hematocrit 32.4 % (37.0-47.0); Hemoglobin 9.6 g/dl (12.0-16.0); Imm Gran Abs Auto 0.02 X10*3/uL (0.00-0.03); Imm Gran Pct Auto 0.2 % (0.0-0.4); Lymphocytes Absolute Auto 3.3 X10*3/uL (1.2-4.9); Lymphocytes Percent Auto 33.1 % (20-40); Mean Corpuscular HGB Conc 29.6 g/dl (31.0-35.0); Mean Corpuscular Hemoglobin 23.1 pg (27.0-33.0); Mean Corpuscular Volume 77.9 fL (80.0-98.0); Mean Platelet Volume 9.8 fL (9.4-12.3); Monocytes Absolute Auto 0.6 X10*3/uL (0.1-1.2); Monocytes Percent Auto 5.9 % (2-11); Neutrophils Absolute Auto 5.9 x10*3/uL (2.0-8.3); Neutrophils Percent Auto 58.1 % (45-73); Platelet Count 359 X10*3/uL (160-400); Red Blood Count 4.16 X10*6/uL (4.20-5.50); Red Cell Distribution Width 17.6 % (11.0-16.0); White Blood Count 10.1 X10*3/uL (4.8-10.8)
[2021-10-17 00:09] LABS: HCG Quantitative < 2 mIU/mL; Troponin-I High Sensitivity < 3.5 ng/L (<3.5-17.0)
[2021-10-17 00:11] LABS: UPreg QC Valid YES; Urine Pregnancy NEGATIVE (NEGATIVE)
--- NOTE | 2021-10-17 03:11 | ED.NAVMDI ---
HPI - Nausea/Vomiting/Diarrhea General Chief complaint: Nausea/Vomiting/Diarrhea Stated complaint: lighthead, dizziness, chest pain Time Seen by Provider: 10/17/21 02:48 Source: patient Mode of arrival: ambulatory Limitations: no limitations History of Present Illness HPI Narrative: 26-year-old female who presents emergency department for evaluation of nausea, vomiting, lightheadedness, abdominal pain and chest pain. The patient states that for the past 1 and half weeks she has been having abdominal pain. She points to her epigastric area when asked to localize the pain. She describes the pain as a intermittent nauseous like feeling which is worse immediately after she eats. The patient states she has been vomiting intermittently once or twice every several days. She states she has continuous nausea. Patient also states she has been experiencing chest pain. She runs or hand along her sternum when asked to localize the pain. She states that the pain is a squeezing like sensation which is 7/10 at its worst. She denied fever, chills, sore throat, cough, shortness of breath, dyspnea on exertion, frequency, urgency, dysuria or change in bowel moved MD elicited complaint: nausea and vomiting Onset (ago): week(s) (1.5) Description of vomiting: food contents Associated nausea: Yes Associated abdominal pain: Yes Location of pain: epigastric Radiation: chest Pain consistency: intermittent Severity: severe Pain scale (0-10): 7 Quality: sharp Exacerbating factors: eating Relieving factors: none Related Data Previous Rx's Medication Instructions Recorded albuterol sulfate 90 mcg/actuation 1 inh inhalation QID PRN shortness 02/18/21 aerosol inhaler (ProAir HFA) of breath or wheezing 30 days #18 grams fluticasone propionate 110 110 mcg inhalation BID 30 days #12 02/18/21 mcg/actuation HFA aerosol inhaler grams fluticasone propionate 50 1 spray intranasal DAILY 30 days 02/18/21 mcg/actuation nasal #16 grams spray,suspension (Flonase Allergy Relief) pantoprazole 40 mg tablet,delayed 40 mg PO DAILY #30 tabs 06/04/21 release loratadine 10 mg tablet 10 mg PO DAILY 90 days #90 tabs 06/06/21 montelukast 10 mg tablet 10 mg PO DAILY 90 days #90 tabs 06/06/21 vitamin with calcium 1 tab PO DAILY #30 tabs 07/04/21 no.72-iron 27 mg-folic acid 1 mg tablet ( Vitamins Plus Low Iron) metronidazole 500 mg tablet 500 mg PO BID 7 days #14 tabs 07/10/21 cholecalciferol (vitamin D3) 25 25 mcg PO DAILY 90 days #90 caps 09/12/21 mcg (1,000 unit) capsule ferrous sulfate 324 mg (65 mg 324 mg PO BID 90 days #180 tabs 09/12/21 iron) tablet,delayed release ferrous gluconate 324 mg (38 mg 324 mg PO TID 60 days #180 tabs 10/17/21 iron) tablet omeprazole 20 mg capsule,delayed 20 mg PO DAILY 30 days #30 caps 10/17/21 release ondansetron 4 mg disintegrating 4 mg PO Q6-8H PRN nausea and 10/17/21 tablet vomiting #14 tabs Allergies Allergy/AdvReac Type Severity Reaction Status Date / Time No Known Allergies Allergy Verified 09/02/21 14:41 [No Known Allergies*] Review of Systems Review of Systems: Yes all other systems are reviewed and are negative Gastrointestinal: Gastrointestinal: Reports nausea PMFSH Past Medical History PMFSH Narrative: Past medical history: Asthma, depression, COVID infection, iron deficient anemia,. Social history: She denies tobacco, alcohol and drug use Medical History Adult BMI 45.0-49.9 kg/sq m Change in mole Elevated parathyroid hormone Elevated testosterone level GERD (gastroesophageal reflux disease) Heavy menstrual bleeding History of asthma HSV (herpes simplex virus) infection Hx of constipation Hx of iron deficiency Hx of renal calculi Menometrorrhagia Prediabetes Surgical History History of vocal cord polypectomy Family History Family History Father Diabetes mellitus Mother No problems noted. Brother No problems noted. 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 Gender identity: Female Cognitive needs: No Hearing needs: No Vision needs: No Physical Exam Vital Signs: Vital Signs: Last Vital Signs Temp 98.9 F 10/16/21 21:42 Pulse 87 10/16/21 21:42 Resp 18 10/16/21 21:42 BP 119/65 10/16/21 21:42 Pulse Ox 100 10/16/21 21:42 O2 Del Method 10/16/21 21:42 BMI result Body Mass Index 48.2 Const: General: cooperative and no acute distress Orientation/consciousness: oriented to person and oriented to place Limitations: no limitations HEENT: Head: Yes normal to inspection, Yes normocephalic and Yes atraumatic Ears: external ears normal General nose exam: Normal external nose present Face and sinus: Yes normal facial exam Mouth: Normal oral and palatal mucosa present Throat: Yes posterior oropharynx normal Eyes: General: appearance normal, both eyes and all related structures Pupils: Equal, round and reactive pupils present Neck: Neck: Yes normal visual inspection, Yes no lymphadenopathy, Yes trachea midline and Yes supple Chest: Chest palpation & inspection: normal inspection of the chest and normal palpation of entire chest wall Resp: Effort & Inspection: normal respiratory effort and able to speak in complete sentences Auscultation: clear to auscultation bilaterally Cardio: Rate: regular rate Rhythm: regular rhythm Heart sounds: S1 normal heart sound present, S2 normal heart sound present and no murmurs GI: Inspection: Yes normal to inspection Palpation (GI): Soft to palpation, Tenderness to palpation present (GI) in the epigastrum (Moderate) and no guarding Auscultation: normal bowel sounds : General: Yes no CVA tenderness Back/Spine/Pelvis: Back: no CVA tenderness Skin: General skin exam: no rashes or lesions noted Neuro: General: oriented to person and oriented to place Cranial nerves: Yes CN's II-XII intact bilaterally and Yes Equal, round and reactive pupils present Cognition (Neuro): normal cognition Motor exam (neuro): 5/5 motor strength present throughout Extrem: General: Yes normal to inspection Psych: Appearance: grossly normal Speech and movement: Normal speech and movement present Affect: normal affect Attitude: cooperative Thought process: Normal thought process present Thought content: Normal thought content present Course Course Course Narrative: 26-year-old female who presents emergency department for evaluation of nausea, vomiting, chest pain, abdominal pain and dizziness x1 half weeks. Patient's vital signs were normal. Physical examination did reveal epigastric tenderness. Laboratory evaluation revealed microcytic anemia with an H&H of 9.6 and 32.4. Quantitative beta-hCG was below detectable limits. COVID-19 was negative. Urinalysis was negative. Twelve EKG was unremarkable. Patient's presentation is consistent with a acute gastritis and esophagitis. I did discuss this with the patient. Patient was prescribed Prilosec 20 mg once a day for 1 month, Zofran ODT 4 mg every 6-8 hours as needed for nausea and vomiting and ferrous gluconate 3 times a day for 60 days. She was given a work note. She was given printed and verbal instructions and discharged home MDM - Nausea/Vomiting/Diarrhea Lab Data Attestation: I reviewed the patient's lab results. Result diagrams: 10/16/21 23:36 10/16/21 23:36 Labs: Lab Results 10/16/21 10/16/21 10/16/21 Range/Units 23:36 23:36 23:36 WBC 10.1 (4.8-10.8) X10*3/uL RBC 4.16 L (4.20-5.50) X10*6/uL Hgb 9.6 L (12.0-16.0) g/dl Hct 32.4 L (37.0-47.0) % MCV 77.9 L (80.0-98.0) fL MCH 23.1 L (27.0-33.0) pg MCHC 29.6 L (31.0-35.0) g/dl RDW 17.6 H (11.0-16.0) % Plt Count 359 (160-400) X10*3/uL MPV 9.8 (9.4-12.3) fL Immature Gran % (Auto) 0.2 (0.0-0.4) % Neut % (Auto) 58.1 (45-73) % Lymph % (Auto) 33.1 (20-40) % [place] % (Auto) 5.9 (2-11) % Eos % (Auto) 2.4 (0-4) % Baso % (Auto) 0.3 (0-2) % Lymph # (Auto) 3.3 (1.2-4.9) X10*3/uL [place] # (Auto) 0.6 (0.1-1.2) X10*3/uL Eos # (Auto) 0.2 (0.0-0.4) X10*3/uL Baso # (Auto) 0.0 (0.0-0.2) X10*3/uL Abs Immat Gran (auto) 0.02 (0.00-0.03) X10*3/uL Absolute Neuts (auto) 5.9 (2.0-8.3) x10*3/uL Absolute Nucleated RBC 0.000 (0.0-0.012) X10*3/uL Nucleated RBC % (auto) 0.0 (0.0-0.2) /100WBC Sodium 136 (135-145) mmol/L Potassium 3.8 (3.3-5.1) mmol/L Chloride 106 (96-108) mmol/L Carbon Dioxide 23 (22-29) mmol/L Anion Gap 11 L (12-20) BUN 9 (9-16) mg/dL Creatinine 0.77 (0.5-1.4) mg/dL Estim Creat Clear Calc 149.0 Estimated GFR > 60 Random Glucose 112 (60-115) mg/dL Calcium 8.4 (8.4-10.2) mg/dL Total Bilirubin < 0.2 (0.0-1.0) mg/dL AST 17 (5-31) U/L ALT 18 (0-31) U/L Alkaline Phosphatase 127 H (39-117) U/L Troponin I High Sens < 3.5 (<3.5-17.0) ng/L Total Protein 6.8 (6.5-8.0) g/dL Albumin 3.7 (3.5-5.0) g/dL Beta HCG, Quant < 2 mIU/mL Urine Color Urine Appearance Urine pH (5.0-8.0) Ur Specific [place] (1.005-1.025) Urine Protein (NEG-TRACE) MG/DL Urine Glucose (UA) (NEG) MG/DL Urine Ketones (NEG) MG/DL Urine Blood (NEG) Urine Nitrite (NEG) Ur Leukocyte Esterase (NEG) Urine Test (NEGATIVE) COVID-19 (LENKA) (Negative) COVID-19 Clin Com 10/16/21 10/16/21 10/16/21 Range/Units 23:36 23:36 23:37 WBC (4.8-10.8) X10*3/uL RBC (4.20-5.50) X10*6/uL Hgb (12.0-16.0) g/dl Hct (37.0-47.0) % MCV (80.0-98.0) fL MCH (27.0-33.0) pg MCHC (31.0-35.0) g/dl RDW (11.0-16.0) % Plt Count (160-400) X10*3/uL MPV (9.4-12.3) fL Immature Gran % (Auto) (0.0-0.4) % Neut % (Auto) (45-73) % Lymph % (Auto) (20-40) % [place] % (Auto) (2-11) % Eos % (Auto) (0-4) % Baso % (Auto) (0-2) % Lymph # (Auto) (1.2-4.9) X10*3/uL [place] # (Auto) (0.1-1.2) X10*3/uL Eos # (Auto) (0.0-0.4) X10*3/uL Baso # (Auto) (0.0-0.2) X10*3/uL Abs Immat Gran (auto) (0.00-0.03) X10*3/uL Absolute Neuts (auto) (2.0-8.3) x10*3/uL Absolute Nucleated RBC (0.0-0.012) X10*3/uL Nucleated RBC % (auto) (0.0-0.2) /100WBC Sodium (135-145) mmol/L Potassium (3.3-5.1) mmol/L Chloride (96-108) mmol/L Carbon Dioxide (22-29) mmol/L Anion Gap (12-20) BUN (9-16) mg/dL Creatinine (0.5-1.4) mg/dL Estim Creat Clear Calc Estimated GFR Random Glucose (60-115) mg/dL Calcium (8.4-10.2) mg/dL Total Bilirubin (0.0-1.0) mg/dL AST (5-31) U/L ALT (0-31) U/L Alkaline Phosphatase (39-117) U/L Troponin I High Sens (<3.5-17.0) ng/L Total Protein (6.5-8.0) g/dL Albumin (3.5-5.0) g/dL Beta HCG, Quant mIU/mL Urine Color YELLOW Urine Appearance CLEAR Urine pH 6.0 (5.0-8.0) Ur Specific [place] >= 1.030 H (1.005-1.025) Urine Protein TRACE (NEG-TRACE) MG/DL Urine Glucose (UA) NEG (NEG) MG/DL Urine Ketones NEG (NEG) MG/DL Urine Blood NEG (NEG) Urine Nitrite NEG (NEG) Ur Leukocyte Esterase NEG (NEG) Urine Test NEGATIVE (NEGATIVE) COVID-19 (LENKA) Negative (Negative) COVID-19 Clin Com See Note ECG Data Attestation: I personally reviewed and interpreted this ECG as follows: Interpretation: 2318: Normal sinus rhythm with a rate of 79, normal WI interval QRS duration and QTC interval, inverted T-wave in lead 3, V1, no ST segment elevation, no ST segment depression, no PACs, no PVCs compared to EKG dated 05/27/2020 there is no significant change. Discharge Plan Discharge Clinical Impression: Esophagitis with gastritis, Nausea & vomiting Patient Disposition: Home, Self-Care Instructions: Gastritis (ED) Additional Instructions: Your laboratory evaluation revealed mild anemia which is most likely caused by low iron in your blood. Take iron gluconate 1 pill 3 times a day for 2 months Your blood work was otherwise unremarkable. Your EKG was normal. Your test was negative. Your symptoms are consistent with inflammation of your stomach (gastritis) and your chest pain is caused by inflammation your food tube/esophagus (esophagitis). Take Prilosec (omeprazole) 20 mg pills, 1 pill once a day for 1 month. This medication shuts off your acid production and let us the inflammation in your esophagus and stomach heal. Take Zofran ODT 4 mg pills, 1 pill dissolved in your mouth every 8 hours as needed for nausea and vomiting. Follow-up with your doctor in 2 days. Please return to the emergency department if your symptoms get worse or if you develop any symptoms that are concerning to you. Please see work note Prescriptions: New omeprazole 20 mg capsule,delayed release(DR/EC) 20 mg PO DAILY 30 Days Qty: 30 0RF ondansetron 4 mg tablet,disintegrating 4 mg PO Q6-8H PRN (Reason: nausea and vomiting) Qty: 14 0RF ferrous gluconate 324 mg (38 mg iron) tablet 324 mg PO TID 60 Days Qty: 180 0RF No Action loratadine 10 mg tablet 10 mg PO DAILY 90 Days Qty: 90 0RF montelukast 10 mg tablet 10 mg PO DAILY 90 Days Qty: 90 1RF metronidazole 500 mg tablet 500 mg PO BID 7 Days Qty: 14 0RF fluticasone propionate 110 mcg/actuation HFA aerosol inhaler 110 mcg inhalation BID 30 Days Qty: 12 5RF fluticasone propionate [Flonase Allergy Relief] 50 mcg/actuation spray,suspension 1 spray intranasal DAILY 30 Days Qty: 16 5RF Rx Instructions: administer into each nostril albuterol sulfate [ProAir HFA] 90 mcg/actuation HFA aerosol inhaler 1 inh inhalation QID PRN (Reason: shortness of breath or wheezing) 30 Days Qty: 18 5RF pantoprazole 40 mg tablet,delayed release (DR/EC) 40 mg PO DAILY Qty: 30 0RF cholecalciferol (vitamin D3) 25 mcg (1,000 unit) capsule 25 mcg PO DAILY 90 Days Qty: 90 0RF ferrous sulfate 324 mg (65 mg iron) tablet,delayed release (DR/EC) 324 mg PO BID 90 Days Qty: 180 0RF Vitamin Plus Low Iron 27 mg iron- 1 mg tablet 1 tab PO DAILY Qty: 30 11RF Stand Alone Forms: Work/School Release
== END 2021-10-17 03:48 | disposition home or self-care (01) ==
PROVIDERS: Emergency Provider Emergency Medicine Emergency Medical Services
DX: K20.90 Esophagitis, unspecified without bleeding (principal); R42 Dizziness and giddiness; R11.2 Nausea with vomiting, unspecified; R07.89 Other chest pain; Z20.822 Contact with and (suspected) exposure to COVID-19; Z79.899 Other long term (current) drug therapy
CPT/HCPCS: 80053; 81003; 81025; 84484; 84702; 85025; 87635; 93005; 99283; 99284

== ENCOUNTER 2022-02-20 10:30 | Outpatient (REF) | payer OTHER, SELFPAY ==
[2022-02-20 11:35] LABS: MANUAL DIFF FLAG NO
[2022-02-20 11:47] LABS: Basophils Percent Auto 0.3 % (0-2); Eosinophils Absolute Auto 0.3 X10*3/uL (0.0-0.4); Eosinophils Percent Auto 2.3 % (0-4); Hematocrit 35.2 % (37.0-47.0); Hemoglobin 10.4 g/dl (12.0-16.0); Imm Gran Abs Auto 0.05 X10*3/uL (0.00-0.03); Imm Gran Pct Auto 0.4 % (0.0-0.4); Lymphocytes Absolute Auto 2.6 X10*3/uL (1.2-4.9); Lymphocytes Percent Auto 22.1 % (20-40); Mean Corpuscular HGB Conc 29.5 g/dl (31.0-35.0); Mean Corpuscular Volume 77.9 fL (80.0-98.0); Mean Platelet Volume 10.9 fL (9.4-12.3); Monocytes Absolute Auto 0.9 X10*3/uL (0.1-1.2); Monocytes Percent Auto 7.2 % (2-11); Neutrophils Percent Auto 67.7 % (45-73); Platelet Count 336 X10*3/uL (160-400); Red Blood Count 4.52 X10*6/uL (4.20-5.50); Red Cell Distribution Width 18.9 % (11.0-16.0); White Blood Count 11.8 X10*3/uL (4.8-10.8)
[2022-02-20 13:09] LABS: Vitamin B12 458 pg/mL (200-900)
[2022-02-20 14:20] LABS: Alanine Aminotransferase 15 U/L (0-31); Albumin Level 3.6 g/dL (3.5-5.0); Alkaline Phosphatase 134 U/L (39-117); Anion Gap 10 (12-20); Aspartate Amino Transferase 12 U/L (5-31); Bilirubin Total 0.2 mg/dL (0.0-1.0); Blood Urea Nitrogen 8 mg/dL (9-16); Calcium 8.7 mg/dL (8.4-10.2); Carbon Dioxide 27 mmol/L (22-29); Chloride 103 mmol/L (96-108); Estimated Glomerular Filt Rate > 60; Ferritin 58 ng/mL (10-122); Glucose Random 149 mg/dL (60-115); Potassium 3.9 mmol/L (3.3-5.1); Sodium 136 mmol/L (135-145); TSH reflex Free T4 0.87 uIU/mL (0.32-4.0); Total Protein 6.8 g/dL (6.5-8.0)
[2022-02-26 14:14] LABS: Vitamin D 25-OH, D2 <4 ng/mL; Vitamin D 25-OH, D3 10 ng/mL; Vitamin D 25-OH, Total 10 ng/mL (30-100)
== END 2022-02-20 10:31 | disposition home or self-care (01) ==
LOC: HO.HMGCLDS 10:30
PROVIDERS: PCP Internal Medicine; Visit Provider Internal Medicine
DX: Z00.01 Encounter for general adult medical examination with abnormal findings (principal); R79.89 Other specified abnormal findings of blood chemistry; D50.9 Iron deficiency anemia, unspecified; J45.909 Unspecified asthma, uncomplicated; E55.9 Vitamin D deficiency, unspecified; E53.8 Deficiency of other specified B group vitamins
CPT/HCPCS: 36415; 80053; 82306; 82607; 82728; 84443; 85025

== ENCOUNTER 2022-03-11 11:59 | Outpatient (REF) | payer OTHER, SELFPAY ==
[2022-03-11 13:51] LABS: Influenza A PCR NEGATIVE (Negative); Influenza B PCR NEGATIVE (Negative); Resp Syncy Virus RNA Qual PCR NEGATIVE (Negative); SARS COV2 PCR INHOUSE NEGATIVE (Negative)
== END 2022-03-11 12:00 | disposition home or self-care (01) ==
LOC: HO.LNP 11:59
PROVIDERS: Visit Provider Nurse Practitioner Family
DX: Z20.822 Contact with and (suspected) exposure to COVID-19 (principal); R09.89 Other specified symptoms and signs involving the circulatory and respiratory systems
CPT/HCPCS: 0241U

== ENCOUNTER 2022-04-28 16:00 | Outpatient (RCR) | payer OTHER, SELFPAY ==
--- NOTE | 2022-03-31 15:49 | MHC.PT.EP ---
[facility] [place] Office [place] Office [place] Office [address] Mele Reagan [address] [phone] F: [phone] F: [phone] F: [phone] F: [phone] Physical Therapy Plan of Care Date of Evaluation: Date of Surgery: n/a Diagnosis: pain in L foot Assessment: Patient is a 26 year old female presenting to PT with complaints of pain in her L foot. Pt reports onset of pain began December 2021 due to falling down the stairs and spraining her ankle. She presents today with impairments in pain, ROM, gastroc length, ankle strength, balance. 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 Pt expresses [facility] goal of reducing pain, and is motivated to work towards this in PT. Clinical presentation today is most consistent with signs and sx associated with possible ankle sprain and pt will benefit from skilled PT to address the following problems and impairments noted upon evaluation: pain, ROM, gastroc length, ankle strength, balance. These problems limit the patient with the following functional activities: ADLs, ambulating, stair negotiation. The prescribed treatment plan of care is medically necessary. Co-morbidities of none were identified and taken into considerations of plan of care. Pt was educated on HEP, role of PT, prognosis, POC. Frequency and Duration: The patient will be seen 2 x week x 4 weeks Short Term Goals: Pt will demonstrate improved ankle strength on L to full and pain free in 2 weeks. Pt will demonstrate ability to stand on L leg in SLS without pain in 2 weeks x 30 sec. Correction Goals: Pt will demonstrate improved LEFI score by 9 points in 4 weeks for improved functional mobility. Pt will demonstrate improved ability to negotiate stairs with min to no pain in 4 weeks for improved access to her home. Pt will demonstrate ability to ambulate community distances with min to no pain in 4 weeks for return to PLOF. Treatment Plan: Modalities to reduce pain, spasms and effusion. Manual therapy to restore motion and function. Therapeutic exercise to improve strength and flexibility. Neuromuscular re-education for posture and balance. Therapeutic activities to return to functional activities of daily living. Electronically signed by: Savanna Bey, PT, DPT, ATC Please sign and return to therapist. Thank you for your referral.
--- NOTE | 2022-04-30 16:31 | MHC.PT.DC ---
[facility] [place] Office [place] Office [place] Office [address] Mele Reagan [address] [phone] F: [phone] F: [phone] F: [phone] F: [phone] Physical Therapy Discharge Report Diagnosis: pain in L foot Date of Surgery: n/a Date of Evaluation: 03/31/22 Date of Discharge: 04/30/22 Treatments to Date: 7 Cancellations to Date: 3 No Shows to Date: 0 Discharge Status: Achieved Goals Improved Function Independent with HEP Discharge Summary: Pt presented to last PT appointment but was feeling ill so decided to cancel. Plan was to d/c at this visit as she has made progress with PT and no longer feeling pain at previous levels. She understands continuing with HEP is important. Electronically signed by: Savanna Bey, PT, DPT, ATC Please sign and return to therapist. Thank you for your referral.
== END 2022-04-30 16:32 | disposition home or self-care (01) ==
LOC: HO.PTCHIC 16:00
PROVIDERS: PCP Internal Medicine; Visit Provider Internal Medicine
DX: M79.672 Pain in left foot (principal)
CPT/HCPCS: 97110; 97112; 97140; 97161

== ENCOUNTER 2022-05-05 15:39 | Emergency (ER) | payer OTHER, SELFPAY ==
--- NOTE | ~2022-05-05 | US_ITS ---
EXAMINATION: US PELVIS CLINICAL INFORMATION: Lower abdominal pain with heavy bleeding COMPARISON: None TECHNIQUE: Ultrasound of the pelvis is performed using both transabdominal and transvaginal transducers along with Doppler. Transvaginal imaging is performed due to inadequate visualization transabdominally. FINDINGS: Uterus: The uterus is anteverted and measures 9.4 x 3.6 x 4.5 cm. The double wall endometrial thickness is 0.4 mm. The uterus is smooth in contour and has normal myometrial echogenicity. No visible fibroid. Some fluid is seen in the endocervical canal consistent with the history of bleeding. Adnexa: Both ovaries are visualized. There is normal color flow to the adnexa. There is no ovarian torsion. There is no pelvic ascites or fluid collection. Right ovary measures 3.8 x 1.9 x 2.9 cm. Left ovary measures 2.9 x 1.7 x 1.2 cm. US/US pelvic and transvaginal IMPRESSION: No significant abnormality is seen.
--- NOTE | 2022-05-05 16:04 | ED_ITS ---
HPI - Female Genitourinary General Chief complaint: Vaginal Bleeding <Sulma Rodriguez CNP - Last Filed: 05/05/22 16:09> Stated complaint: vag bleeding? 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 Patient states he is much heavier than normal. She denies any fevers chills cough she did have some abdominal pain which is gone now. Patient seen in triage had labs and an ultrasound done which were unremarkable. Patient is not on <Jamaal Sexton DO - Last Filed: 05/05/22 20:48> MD elicited complaint: vaginal bleeding <Jamaal Sexton DO - Last Filed: 05/05/22 20:48> Related Data Home medications: Previous Rx's Medication Instructions Recorded albuterol sulfate 90 mcg/actuation 1 inh inhalation QID PRN shortness 02/18/21 aerosol inhaler (ProAir HFA) of breath or wheezing 30 days #18 grams fluticasone propionate 110 110 mcg inhalation BID 30 days #12 02/18/21 mcg/actuation HFA aerosol inhaler grams fluticasone propionate 50 1 spray intranasal DAILY 30 days 02/18/21 mcg/actuation nasal #16 grams spray,suspension (Flonase Allergy Relief) loratadine 10 mg tablet 10 mg PO DAILY 90 days #90 tabs 06/06/21 montelukast 10 mg tablet 10 mg PO DAILY 90 days #90 tabs 06/06/21 ferrous sulfate 324 mg (65 mg 324 mg PO BID 90 days #180 tabs 02/24/22 iron) tablet,delayed release cholecalciferol (vitamin D3) 25 25 mcg PO DAILY 90 days #90 caps 02/27/22 mcg (1,000 unit) capsule albuterol sulfate 90 mcg/actuation 2 puff inhalation Q4-6H PRN 03/11/22 aerosol inhaler shortness of breath or wheezing #8.5 grams <Sulma Rodriguez CNP - Last Filed: 05/05/22 16:09> Allergies/Adverse reactions: Allergies Allergy/AdvReac Type Severity Reaction Status Date / Time No Known Allergies Allergy Verified 05/05/22 16:09 [No Known Allergies*] <Sulma Rodriguez CNP - Last Filed: 05/05/22 16:09> Review of Systems Review of Systems: Review of systems: General: Patient denies any fever chills recent illness or falls Musculoskeletal: Denies back pain or body aches or other injuries HEENT: denies headache, runny nose, ear pain Respiratory: denies shortness of breath, cough Cardiovascular: no chest pain or palpitations : denies dysuria, frequency Vaginal blee Abdomen: no nausea vomiting denies abdominal pain Extremities: no swelling, no pain Skin: no diaphoresis <Jamaal Sexton DO - Last Filed: 05/05/22 20:48> Yes all other systems are reviewed and are negative <Jamaal Sexton DO - Last Filed: 05/05/22 20:48> PMFSH Past Medical History Medical History: Medical History Adult BMI 45.0-49.9 kg/sq m Change in mole Elevated parathyroid hormone Elevated testosterone level GERD (gastroesophageal reflux disease) Heavy menstrual bleeding History of asthma HSV (herpes simplex virus) infection Hx of constipation Hx of iron deficiency Hx of renal calculi Menometrorrhagia Prediabetes <Sulma Rodriguez CNP - Last Filed: 05/05/22 16:09> Surgical History: Surgical History History of vocal cord polypectomy <Sulma Rodriguez CNP - Last Filed: 05/05/22 16:09> Family History Family History: Family History Father Diabetes mellitus Mother No problems noted. Brother No problems noted. <Sulma Rodriguez CNP - Last Filed: 05/05/22 16:09> Social History Social History: Social History Housing: House Alcohol intake: never Patient Tobacco Use Status: Never used Tobacco e-Cigarette/Vaping Use: Never Used Second Hand Smoke Exposure: No Advance Directives: No Advance Directives Information Provided: No service: No Current occupational status: employed Current occupation: [employer]. Current occupational exposures/hazards: No Gender identity: Female Cognitive needs: No Hearing needs: No Vision needs: No <Sulma Rodriguez CNP - Last Filed: 05/05/22 16:09> Physical Exam Vital Signs: Vital Signs: Last Vital Signs Temp 98.0 F 05/05/22 16:05 Pulse 84 05/05/22 16:05 Resp 20 05/05/22 16:05 BP 124/88 05/05/22 16:05 Pulse Ox 95 05/05/22 16:05 O2 Del Method 05/05/22 16:05 BMI result Body Mass Index 50.4 <Sulma Rodriguez CNP - Last Filed: 05/05/22 16:09> Vital Signs: Last Vital Signs Temp 98.0 F 05/05/22 16:05 Pulse 84 05/05/22 16:05 Resp 20 05/05/22 16:05 BP 124/88 05/05/22 16:05 Pulse Ox 95 05/05/22 16:05 O2 Del Method 05/05/22 16:05 BMI result Body Mass Index 50.4 <Jamaal Sexton DO - Last Filed: 05/05/22 20:48> General: Well-appearing well-nourished in no signs of distress HEENT: Normocephalic atraumatic Neck: No signs of JVD, no masses no tenderness or lymphadenopathy Cardiovascular: Regular rate and rhythm Respiratory: Clear to auscultation bilaterally Abdomen: Soft nontender no masses Extremities: Normal pedal pulses no signs of edema Skin: Dry warm no rashes Back: No tenderness full ROM <Jamaal Sexton DO - Last Filed: 05/05/22 20:48> Course Course Course Narrative: This is an RME: Additional HPI, ROS, PE not included below will be deferred to primary provider. Patient is a 27-year-old female who presents to the emergency department. Reports vaginal bleeding since yesterday reporting that she needs to change 2 pads every 2 hours, and she does not typically have this heavy of a menstrual cycle which prompted her to call her doctor, then was advised to come to the ED. Has diffuse lower abdominal pain described as a pressure associated with this, in addition to nausea, dizziness and headache. States that she took a test last week, at home which was negative. LMP January, though she states typically irregular. Denies fevers, chills, dysuria, urine frequency/hesitancy. Denies use of any anticoagulants. Plan: Labs, urinalysis, hCG, pelvic US <Sulma Rodriguez CNP - Last Filed: 05/05/22 16:09> Medical Decision Making Medical Decision Making [facility] Narrative: patient had ultrasound and labs prior to me seeing the patient and patient's pelvic exam she is sexually active there are no concerns for infection at this time. Patient is here for bleeding I did explain the patient's could be menorrhagia trying to be started on control and she is Happy with the plan to follow-up OB. <Jamaal Sexton DO - Last Filed: 05/05/22 20:48> Differential Diagnosis Differential Diagnoses: The differential diagnosis associated with the presentation includes <Jamaal Sexton DO - Last Filed: 05/05/22 20:48> uterine fibroids uterine cancer vaginal bleeding hormone imbalance. <Jamaal Sexton DO - Last Filed: 05/05/22 20:48> Admission/Observation Consideration of admission/observation: Escalation of care including admission/observation considered <Jamaal Sexton DO - Last Filed: 05/05/22 20:48> Lab Data [facility] Lab Attestation statement: I reviewed the patient's lab results. <Jamaal Sexton DO - Last Filed: 05/05/22 20:48> Result Diagrams: 05/05/22 16:53 05/05/22 16:53 <Sulma Rodriguez CNP - Last Filed: 05/05/22 16:09> Labs: Lab Results 05/05/22 05/05/22 05/05/22 Range/Units 16:53 16:53 16:53 WBC 11.1 H (4.8-10.8) X10*3/uL RBC 4.67 (4.20-5.50) X10*6/uL Hgb 10.9 L (12.0-16.0) g/dl Hct 35.7 L (37.0-47.0) % MCV 76.4 L (80.0-98.0) fL MCH 23.3 L (27.0-33.0) pg MCHC 30.5 L (31.0-35.0) g/dl RDW 18.5 H (11.0-16.0) % Plt Count 352 (160-400) X10*3/uL MPV 9.9 (9.4-12.3) fL Immature Gran % (Auto) 0.2 (0.0-0.4) % Neut % (Auto) 69.9 (45-73) % Lymph % (Auto) 21.0 (20-40) % Will % (Auto) 6.5 (2-11) % Eos % (Auto) 1.9 (0-4) % Baso % (Auto) 0.5 (0-2) % Lymph # (Auto) 2.3 (1.2-4.9) X10*3/uL Will # (Auto) 0.7 (0.1-1.2) X10*3/uL Eos # (Auto) 0.2 (0.0-0.4) X10*3/uL Baso # (Auto) 0.1 (0.0-0.2) X10*3/uL Abs Immat Gran (auto) 0.02 (0.00-0.03) X10*3/uL Absolute Neuts (auto) 7.8 (2.0-8.3) x10*3/uL Absolute Nucleated RBC 0.000 (0.0-0.012) X10*3/uL Nucleated RBC % (auto) 0.0 (0.0-0.2) /100WBC Sodium 139 (135-145) mmol/L Potassium 3.8 (3.3-5.1) mmol/L Chloride 107 (96-108) mmol/L Carbon Dioxide 25 (22-29) mmol/L Anion Gap 11 L (12-20) BUN 10 (9-16) mg/dL Creatinine 0.78 (0.5-1.4) mg/dL Estim Creat Clear Calc 149.8 Estimated GFR > 60 Random Glucose 94 (60-115) mg/dL Calcium 9.1 (8.4-10.2) mg/dL Total Bilirubin 0.3 (0.0-1.0) mg/dL AST 17 (5-31) U/L ALT 18 (0-31) U/L Alkaline Phosphatase 141 H (39-117) U/L Total Protein 6.8 (6.5-8.0) g/dL Albumin 3.9 (3.5-5.0) g/dL Lipase 15 (8-78) U/L Urine Test (NEGATIVE) COVID-19 (LENKA) Negative (Negative) COVID-19 Clin Com See Note 05/05/22 Range/Units 17:12 WBC (4.8-10.8) X10*3/uL RBC (4.20-5.50) X10*6/uL Hgb (12.0-16.0) g/dl Hct (37.0-47.0) % MCV (80.0-98.0) fL MCH (27.0-33.0) pg MCHC (31.0-35.0) g/dl RDW (11.0-16.0) % Plt Count (160-400) X10*3/uL MPV (9.4-12.3) fL Immature Gran % (Auto) (0.0-0.4) % Neut % (Auto) (45-73) % Lymph % (Auto) (20-40) % Will % (Auto) (2-11) % Eos % (Auto) (0-4) % Baso % (Auto) (0-2) % Lymph # (Auto) (1.2-4.9) X10*3/uL Will # (Auto) (0.1-1.2) X10*3/uL Eos # (Auto) (0.0-0.4) X10*3/uL Baso # (Auto) (0.0-0.2) X10*3/uL Abs Immat Gran (auto) (0.00-0.03) X10*3/uL Absolute Neuts (auto) (2.0-8.3) x10*3/uL Absolute Nucleated RBC (0.0-0.012) X10*3/uL Nucleated RBC % (auto) (0.0-0.2) /100WBC Sodium (135-145) mmol/L Potassium (3.3-5.1) mmol/L Chloride (96-108) mmol/L Carbon Dioxide (22-29) mmol/L Anion Gap (12-20) BUN (9-16) mg/dL Creatinine (0.5-1.4) mg/dL Estim Creat Clear Calc Estimated GFR Random Glucose (60-115) mg/dL Calcium (8.4-10.2) mg/dL Total Bilirubin (0.0-1.0) mg/dL AST (5-31) U/L ALT (0-31) U/L Alkaline Phosphatase (39-117) U/L Total Protein (6.5-8.0) g/dL Albumin (3.5-5.0) g/dL Lipase (8-78) U/L Urine Test NEGATIVE (NEGATIVE) COVID-19 (LENKA) (Negative) COVID-19 Clin Com <Sulma Rodriguez CNP - Last Filed: 05/05/22 16:09> Lab Results 05/05/22 05/05/22 05/05/22 Range/Units 16:53 16:53 16:53 WBC 11.1 H (4.8-10.8) X10*3/uL RBC 4.67 (4.20-5.50) X10*6/uL Hgb 10.9 L (12.0-16.0) g/dl Hct 35.7 L (37.0-47.0) % MCV 76.4 L (80.0-98.0) fL MCH 23.3 L (27.0-33.0) pg MCHC 30.5 L (31.0-35.0) g/dl RDW 18.5 H (11.0-16.0) % Plt Count 352 (160-400) X10*3/uL MPV 9.9 (9.4-12.3) fL Immature Gran % (Auto) 0.2 (0.0-0.4) % Neut % (Auto) 69.9 (45-73) % Lymph % (Auto) 21.0 (20-40) % Will % (Auto) 6.5 (2-11) % Eos % (Auto) 1.9 (0-4) % Baso % (Auto) 0.5 (0-2) % Lymph # (Auto) 2.3 (1.2-4.9) X10*3/uL Will # (Auto) 0.7 (0.1-1.2) X10*3/uL Eos # (Auto) 0.2 (0.0-0.4) X10*3/uL Baso # (Auto) 0.1 (0.0-0.2) X10*3/uL Abs Immat Gran (auto) 0.02 (0.00-0.03) X10*3/uL Absolute Neuts (auto) 7.8 (2.0-8.3) x10*3/uL Absolute Nucleated RBC 0.000 (0.0-0.012) X10*3/uL Nucleated RBC % (auto) 0.0 (0.0-0.2) /100WBC Sodium 139 (135-145) mmol/L Potassium 3.8 (3.3-5.1) mmol/L Chloride 107 (96-108) mmol/L Carbon Dioxide 25 (22-29) mmol/L Anion Gap 11 L (12-20) BUN 10 (9-16) mg/dL Creatinine 0.78 (0.5-1.4) mg/dL Estim Creat Clear Calc 149.8 Estimated GFR > 60 Random Glucose 94 (60-115) mg/dL Calcium 9.1 (8.4-10.2) mg/dL Total Bilirubin 0.3 (0.0-1.0) mg/dL AST 17 (5-31) U/L ALT 18 (0-31) U/L Alkaline Phosphatase 141 H (39-117) U/L Total Protein 6.8 (6.5-8.0) g/dL Albumin 3.9 (3.5-5.0) g/dL Lipase 15 (8-78) U/L Urine Test (NEGATIVE) COVID-19 (LENKA) Negative (Negative) COVID-19 Clin Com See Note 05/05/22 Range/Units 17:12 WBC (4.8-10.8) X10*3/uL RBC (4.20-5.50) X10*6/uL Hgb (12.0-16.0) g/dl Hct (37.0-47.0) % MCV (80.0-98.0) fL MCH (27.0-33.0) pg MCHC (31.0-35.0) g/dl RDW (11.0-16.0) % Plt Count (160-400) X10*3/uL MPV (9.4-12.3) fL Immature Gran % (Auto) (0.0-0.4) % Neut % (Auto) (45-73) % Lymph % (Auto) (20-40) % Will % (Auto) (2-11) % Eos % (Auto) (0-4) % Baso % (Auto) (0-2) % Lymph # (Auto) (1.2-4.9) X10*3/uL Will # (Auto) (0.1-1.2) X10*3/uL Eos # (Auto) (0.0-0.4) X10*3/uL Baso # (Auto) (0.0-0.2) X10*3/uL Abs Immat Gran (auto) (0.00-0.03) X10*3/uL Absolute Neuts (auto) (2.0-8.3) x10*3/uL Absolute Nucleated RBC (0.0-0.012) X10*3/uL Nucleated RBC % (auto) (0.0-0.2) /100WBC Sodium (135-145) mmol/L Potassium (3.3-5.1) mmol/L Chloride (96-108) mmol/L Carbon Dioxide (22-29) mmol/L Anion Gap (12-20) BUN (9-16) mg/dL Creatinine (0.5-1.4) mg/dL Estim Creat Clear Calc Estimated GFR Random Glucose (60-115) mg/dL Calcium (8.4-10.2) mg/dL Total Bilirubin (0.0-1.0) mg/dL AST (5-31) U/L ALT (0-31) U/L Alkaline Phosphatase (39-117) U/L Total Protein (6.5-8.0) g/dL Albumin (3.5-5.0) g/dL Lipase (8-78) U/L Urine Test NEGATIVE (NEGATIVE) COVID-19 (LENKA) (Negative) COVID-19 Clin Com <Jamaal Sexton DO - Last Filed: 05/05/22 20:48> Discharge Plan Discharge Clinical Impression: Dysmenorrhea, Heavy menstrual bleeding <Sulma Rodriguez CNP - Last Filed: 05/05/22 16:09> Patient Disposition: Home, Self-Care <Sulma Rodriguez CNP - Last Filed: 05/05/22 16:09> Instructions: Dysmenorrhea (ED), Menorrhagia (ED) <Sulma Rodriguez CNP - Last Filed: 05/05/22 16:09> Additional Instructions: Please call follow-up for your heavy bleeding with [employer] consultant if you start to feel dizzy weak please do not hesitate to come back to the emergency department. <Sulma Rodriguez CNP - Last Filed: 05/05/22 16:09> Prescriptions: No Action loratadine 10 mg tablet 10 mg PO DAILY 90 Days Qty: 90 0RF montelukast 10 mg tablet 10 mg PO DAILY 90 Days Qty: 90 1RF ferrous sulfate 324 mg (65 mg iron) tablet,delayed release (DR/EC) 324 mg PO BID 90 Days Qty: 180 0RF cholecalciferol (vitamin D3) 25 mcg (1,000 unit) capsule 25 mcg PO DAILY 90 Days Qty: 90 0RF fluticasone propionate 110 mcg/actuation HFA aerosol inhaler 110 mcg inhalation BID 30 Days Qty: 12 5RF fluticasone propionate [Flonase Allergy Relief] 50 mcg/actuation spray,suspension 1 spray intranasal DAILY 30 Days Qty: 16 5RF Rx Instructions: administer into each nostril albuterol sulfate [ProAir HFA] 90 mcg/actuation HFA aerosol inhaler 1 inh inhalation QID PRN (Reason: shortness of breath or wheezing) 30 Days Qty: 18 5RF albuterol sulfate 90 mcg/actuation HFA aerosol inhaler 2 puff inhalation Q4-6H PRN (Reason: shortness of breath or wheezing) Qty: 8.5 0RF <Sulma Rodriguez CNP - Last Filed: 05/05/22 16:09>
[2022-05-05 16:05] VITALS: BP 124/88; PULSE 84; RESP 20; TEMP 36.7; O2SAT 95; BMI 50.4
[2022-05-05 17:12] LABS: MANUAL DIFF FLAG NO
[2022-05-05 17:17] LABS: Basophils Absolute Auto 0.1 X10*3/uL (0.0-0.2); Basophils Percent Auto 0.5 % (0-2); Eosinophils Absolute Auto 0.2 X10*3/uL (0.0-0.4); Eosinophils Percent Auto 1.9 % (0-4); Hematocrit 35.7 % (37.0-47.0); Hemoglobin 10.9 g/dl (12.0-16.0); Imm Gran Abs Auto 0.02 X10*3/uL (0.00-0.03); Imm Gran Pct Auto 0.2 % (0.0-0.4); Lymphocytes Absolute Auto 2.3 X10*3/uL (1.2-4.9); Mean Corpuscular HGB Conc 30.5 g/dl (31.0-35.0); Mean Corpuscular Hemoglobin 23.3 pg (27.0-33.0); Mean Corpuscular Volume 76.4 fL (80.0-98.0); Mean Platelet Volume 9.9 fL (9.4-12.3); Monocytes Absolute Auto 0.7 X10*3/uL (0.1-1.2); Monocytes Percent Auto 6.5 % (2-11); Neutrophils Absolute Auto 7.8 x10*3/uL (2.0-8.3); Neutrophils Percent Auto 69.9 % (45-73); Platelet Count 352 X10*3/uL (160-400); Red Blood Count 4.67 X10*6/uL (4.20-5.50); Red Cell Distribution Width 18.5 % (11.0-16.0); White Blood Count 11.1 X10*3/uL (4.8-10.8)
[2022-05-05 17:31] LABS: COVID-19 Test Negative (Negative); IDNOW Serial# 16C4AD1C
[2022-05-05 17:34] LABS: Alanine Aminotransferase 18 U/L (0-31); Albumin Level 3.9 g/dL (3.5-5.0); Alkaline Phosphatase 141 U/L (39-117); Anion Gap 11 (12-20); Aspartate Amino Transferase 17 U/L (5-31); Bilirubin Total 0.3 mg/dL (0.0-1.0); Blood Urea Nitrogen 10 mg/dL (9-16); Calcium 9.1 mg/dL (8.4-10.2); Carbon Dioxide 25 mmol/L (22-29); Chloride 107 mmol/L (96-108); Creatinine Clr Calc Pharmacy 149.8; Estimated Glomerular Filt Rate > 60; Glucose Random 94 mg/dL (60-115); Lipase 15 U/L (8-78); Potassium 3.8 mmol/L (3.3-5.1); Sodium 139 mmol/L (135-145); Total Protein 6.8 g/dL (6.5-8.0)
[2022-05-05 17:37] LABS: UPreg QC Valid YES; Urine Pregnancy NEGATIVE (NEGATIVE)
[2022-05-05] MEDS: Ibuprofen 400 MG TABLET PO (20:56)
== END 2022-05-05 20:58 | disposition home or self-care (01) ==
PROVIDERS: Nurse Practitioner Family; Emergency Provider Student in an Organized Health Care Education/Training Program; PCP Internal Medicine
DX: N94.4 Primary dysmenorrhea (principal); N92.0 Excessive and frequent menstruation with regular cycle; Z20.822 Contact with and (suspected) exposure to COVID-19; Z20.828 Contact with and (suspected) exposure to other viral communicable diseases; Z79.899 Other long term (current) drug therapy
CPT/HCPCS: 76830; 76856; 80053; 81025; 83690; 85025; 87635; 99283; 99284

== ENCOUNTER 2022-05-07 14:03 | Outpatient (REF) | payer OTHER, SELFPAY ==
[2022-05-07 16:53] LABS: Thyroid Stimulating Hormone 0.98 uIU/mL (0.32-4.0)
[2022-05-09 04:10] LABS: Follicle Stimulating Hormone 5.4 mIU/mL; Lutenizing Hormone 2.1 mIU/mL; Prolactin 11.4 ng/mL
[2022-05-16 18:08] LABS: Testosterone, Free 1.1 pg/mL (0.1-6.4); Testosterone, Total 8 ng/dL (2-45)
== END 2022-05-07 14:04 | disposition home or self-care (01) ==
LOC: HO.LAB 14:03
PROVIDERS: PCP Internal Medicine; Visit Provider Obstetrics & Gynecology
DX: L68.0 Hirsutism (principal); N93.9 Abnormal uterine and vaginal bleeding, unspecified
CPT/HCPCS: 36415; 83001; 83002; 83498; 84146; 84402; 84403; 84443

== ENCOUNTER 2022-05-09 11:58 | Outpatient (REF) | payer OTHER, SELFPAY ==
[2022-05-17 15:14] LABS: Cortisol Free, 24 Hr Urine 21.9 mcg/24 h (4.0-50.0); Total Volume, 24 Hr Urine 725 mL
== END 2022-05-09 11:59 | disposition home or self-care (01) ==
LOC: HO.LNP 11:58
PROVIDERS: Visit Provider Obstetrics & Gynecology
DX: N93.9 Abnormal uterine and vaginal bleeding, unspecified (principal); L68.0 Hirsutism
CPT/HCPCS: 82530

== ENCOUNTER 2022-05-12 08:37 | Outpatient (REF) | payer OTHER, SELFPAY ==
[2022-05-13 12:02] LABS: CT PCR NOT DETECTED (Not Detect.); NG PCR NOT DETECTED (Not Detect.)
== END 2022-05-12 08:38 | disposition home or self-care (01) ==
LOC: HO.LNP 08:37
PROVIDERS: PCP Internal Medicine; Visit Provider Obstetrics & Gynecology
DX: N93.9 Abnormal uterine and vaginal bleeding, unspecified (principal)
CPT/HCPCS: 0353U; 58100; 88305

== ENCOUNTER → 2022-06-08 12:03 | Outpatient (BNVA) | payer OTHER, SELFPAY | PROVIDERS: PCP Internal Medicine; Visit Provider Obstetrics & Gynecology | DX: Z13.89 Encounter for screening for other disorder (principal) ==

== ENCOUNTER 2022-08-04 08:17 | Outpatient (REF) | payer OTHER, SELFPAY ==
[2022-08-04 14:19] LABS: CT PCR NOT DETECTED (Not Detect.); NG PCR NOT DETECTED (Not Detect.)
== END 2022-08-04 08:18 | disposition home or self-care (01) ==
LOC: HO.LNP 08:17
PROVIDERS: PCP Internal Medicine; Visit Provider Obstetrics & Gynecology
DX: Z01.419 Encounter for gynecological examination (general) (routine) without abnormal findings (principal); N94.12 Deep dyspareunia; N91.2 Amenorrhea, unspecified; Z20.2 Contact with and (suspected) exposure to infections with a predominantly sexual mode of transmission; Z79.899 Other long term (current) drug therapy
CPT/HCPCS: 0353U; 87086

== ENCOUNTER 2022-11-27 13:41 | Outpatient (AMB) | payer OTHER, SELFPAY ==
--- NOTE | 2022-11-27 13:53 | MHC.PC.OV ---
Vital Signs 11/27/22 13:54 Height 5 ft 5 in Weight 304 lb 6 oz BMI 50.6 BP 126/72 Blood Pressure Location Rt brachial Position Sitting Pulse 82 Pulse Source Pulse Oximeter Pulse Oximetry (%) 100 Oxygen Delivery Method Room Air Intake Visit Reasons: Discuss FMLA Paperwork~ Allergies No Known Allergies [No Known Allergies*] Allergy (Verified 11/27/22 13:54) Tobacco use date assessed: 11/27/22 Dental Screening Dental Screen Date: 11/27/22 Did you have a dental visit in the last 12 months?: Yes Did you have a dental problem in the last 6 months where you did not have access to dental care?: No Was dental information given to patient?: Patient has dentist HPI Discuss FMLA Paperwork~ HPI Details went to [place] 10/20/22 to 11/03/22 Patient is 27-year-old female who went to visit [facility] And came back on 11/04 While in [facility] she Got bit by insect while visiting [facility] at multiple site , that later turned into cellulitis she saw upper provider on 10/27/22, provider couldnt help her she was given cortison injection in her left hand then her legs started swelling, rash on her left arm got better she was re evaluated by a provider on 11/02/22, she was then given Doxycyline , as her WBC count was elevated she travelled even though she was not feeling good on November 03, came back to [facility] and went to [facility] on 11/04/22 she was diagnosised with Cellulitis she was given different antibiotic she started to feel better by 11/06/22 on 11/07 she travelled to [facility] over there her her illness worsened, pain and swelling of both legs started again blisters were formed on legs both sites she saw another doctor in [facility], she was given Clindamycin, Diclofenic , and Cipro she started feeling better she also was getting salt water baths for her blisters which eventually healed patient came back on 11/17 she has been feeling better since slight tenderness in legs is still there she went back to work on 11/24/22 she need FMLA paper from 11/13 till 11/24 she will provide with FMLA paper work, she dont have it today [facility] Medical History HSV (herpes simplex virus) infection Adult BMI 45.0-49.9 kg/sq m Change in mole Prediabetes Elevated parathyroid hormone Elevated testosterone level Heavy menstrual bleeding Menometrorrhagia Hx of renal calculi Hx of constipation GERD (gastroesophageal reflux disease) Hx of iron deficiency History of asthma Surgical History History of vocal cord polypectomy Family History Father Diabetes mellitus Mother No problems noted. Brother No problems noted. Social History Housing: House Alcohol intake: never Patient Tobacco Use Status: Never used Tobacco e-Cigarette/Vaping Use: Never Used Second Hand Smoke Exposure: No service: No Current occupational status: employed Current occupation: [employer] in [employer]. Current occupational exposures/hazards: No Gender identity: Female Cognitive needs: No Hearing needs: No Vision needs: No Female Reproductive History Menstrual Age of Menarche: 9 Questionnaire PHQ-9 Over the last 2 weeks, how often have you been bothered by any of the following problems? 1. Little interest or pleasure in doing things: not at all 2. Feeling down, depressed, or hopeless: several days 3. Trouble falling or staying asleep, or sleeping too much: nearly every day 4. Feeling tired or having little energy: more than half the days 5. Poor appetite or overeating: not at all 6. Feeling bad about yourself - or that you are a failure or have let yourself or your family down: not at all 7. Trouble concentrating on things, such as reading the newspaper or watching television: not at all 8. Moving or speaking so slowly that other people could have noticed. Or the opposite - being so fidgety or restless that you have been moving around a lot more than usual: not at all 9. Thoughts that you would be better off or of hurting yourself in some way: not at all Total score: 6 Depression Screening Interpretation: Negative 63874 - PHQ-9 Billing: Yes Source: Developed by Drs. Maldonado Rivas, Shannan Ramos, Britton Gunn and colleagues, with an educational eugene from [employer]. Thrive Questionnaire Date Thrive assessed: 11/27/22 What is your living situation today?: I do not have a steady places to live Within the past 12 months, did the food you bought not last and you didn't have the money to get more?: Never true Within the past 12 months, did you worry whether your food would run out before you got money to buy more?: Never true Do you have trouble paying for medicines?: No Do you have trouble getting transportation to medical appointments?: No Do you have trouble paying your heating and electricity bill?: No Do you have trouble taking care of your child, family member or friend?: No Do you have trouble with day-to-day activities such as bathing, preparing meals, shopping, managing finances, etc.?: No Are you currently unemployed and looking for a job?: No Are you interested in more education?: Yes AUDIT C Alcohol Use Questionnaire (AUDIT-C) 1. How often do you have a drink containing alcohol?: Never 3. How often do you have six or more drinks on one occasion?: Never Total Score: 0 Score Reviewed/Action Taken: Yes SHERITA-7 AMB Questionnaire SHERITA-7 Date SHERITA - 7 assessed: 11/27/22 Feeling nervous, anxious, or on edge: 1 = Several days Not being able to stop or control worryin = Several days Worrying too much about different things: 1 = Several days Trouble relaxin = Several days Being so restless that it is hard to sit still: 0 = Not at all Becoming easily annoyed or irritable: 0 = Not at all Feeling afraid as if something awful might happen: 2 = More than half the days Total SHERITA-7 score (0-4 normal; 5-9 mild; 10-14 moderate; 15-21 severe): 6 Source: Developed by Drs. Maldonado Rivas, Shannan Ramos, Britton Gunn and colleagues, with an educational eugene from [employer]. SHERITA-7 Assessment Billing SHERITA-7 Assessment Tool: SHERITA-7 Assessment 50346 Review of Systems Const Denies chills and Denies fever(s) ENT Denies epistaxis and Denies nasal discharge Card Denies chest pain Resp Denies chest congestion, Denies cough and Denies hemoptysis GI Denies diarrhea and Denies nausea Skin/Breast Denies rash Neuro Reports no additional complaints Psych Reports no additional complaints Endo Reports no additional complaints Physical exam (Primary Care) Vital Signs: Last Vital Signs Pulse 82 11/27/22 13:54 BP 126/72 11/27/22 13:54 Pulse Ox 100 11/27/22 13:54 Oxygen Delivery Method Room Air 11/27/22 13:54 BMI result Body Mass Index 50.6 Tobacco/Smoking Status: Tobacco use Status Tobacco use date assessed 11/27/22 11/27/22 13:55 Patient Tobacco Use Status Never used Tobacco 11/27/22 13:55 e-Cigarette/Vaping Use Never Used 11/27/22 13:55 PHQ-9: PHQ-9 Score PHQ-9: Total score 6 11/27/22 14:18 Depression Screening Interpretation: Negative Thrive Assessment: Date of Thrive Assessment Date Thrive assessed 11/27/22 11/27/22 14:18 Const General: cooperative, comfortable and no acute distress Orientation/consciousness: patient oriented x3 HENMT Head: Yes normocephalic Eyes General: appearance normal, both eyes and all related structures Neck Neck: Yes supple Resp Effort & Inspection: normal respiratory effort, no cough and no stridor Cardio Rhythm: regular rhythm Heart sounds: S1 normal heart sound present and S2 normal heart sound present Skin Other: Discolored round patches where patient had a insect bites on her arms and legs, no active inflammation or rash General skin exam: turgor normal Neuro General: patient oriented x3, tone normal and moves all extremities Extrem Right lower extremity: no edema Left lower extremity: no edema Assessment and Plan Assessment & Plan (1) Travel-related illness: Code(s): R69 - Illness, unspecified Plan went to [place] 10/20/22 to 11/03/22 Patient is 27-year-old female who went to visit [facility] And came back on 11/04 While in [place] she Got bit by insect while visiting [facility] at multiple site , that later turned into cellulitis she saw upper provider on 10/27/22, provider couldnt help her she was given cortison injection in her left hand then her legs started swelling, rash on her left arm got better she was re evaluated by a provider on 11/02/22, she was then given Doxycyline , as her WBC count was elevated she travelled even though she was not feeling good on November 03, came back to [facility] and went to [facility] on 11/04/22 she was diagnosised with Cellulitis she was given different antibiotic she started to feel better by 11/06/22 on 11/07 she travelled to [facility] over there her her illness worsened, pain and swelling of both legs started again blisters were formed on legs both sites she saw another doctor in [facility], she was given Clindamycin, Diclofenic , and Cipro she started feeling better she also was getting salt water baths for her blisters which eventually healed patient came back on 11/17 she has been feeling better since slight tenderness in legs is still there she went back to work on 11/24/22 she need FMLA paper from 11/13 till 11/24 she will provide with FMLA paper work, she dont have it today Meanwhile letter provided for them provided Coding Level of Care Code Est Pt Level 5 (99490) Diagnoses Travel-related illness R69 Additional Codes SHERITA-7 Assessment Billing - SHERITA-7 Assessment Tool: SHERITA-7 Assessment 79566 ([id number]) Time Spent (min) 45 Comment 5 prep, 20 with patient, 10 charting / coordination of care
[2022-11-27 13:54] VITALS: BP 126/72; PULSE 82; O2SAT 100; BMI 50.6
== END 2022-11-27 15:53 | disposition home or self-care (01) ==
PROVIDERS: PCP Internal Medicine; Visit Provider Internal Medicine
DX: L03.818 Cellulitis of other sites (principal); R69 Illness, unspecified
CPT/HCPCS: 99215

== ENCOUNTER 2022-12-01 15:37 | Outpatient (AMB) | payer OTHER, SELFPAY ==
[2022-12-01 16:45] VITALS: BP 128/74; PULSE 77; TEMP 36.6; O2SAT 100; BMI 51.1
--- NOTE | 2022-12-01 16:45 | MHC.OFFWIV ---
Intake Vital Signs 12/01/22 16:45 Height 5 ft 5 in Weight 307 lb BMI 51.1 BP 128/74 Blood Pressure Location Rt brachial Position Sitting Pulse 77 Pulse Source Pulse Oximeter Temp 97.8 F Temp Source Temporal Artery Scan Pulse Oximetry (%) 100 Oxygen Delivery Method Room Air Intake Visit Reasons: EST/asthma acting up [phone] Intake Note: pt is here for c/o asthma flare up Patient Tobacco Use Status: Never used Tobacco Allergies No Known Allergies [No Known Allergies*] Allergy (Verified 12/04/22 17:22) Medication List - Last Reconciled 12/04/22 by Jewel Nagy MD albuterol sulfate 90 mcg/actuation 2 puffs inhalation Q4-6H PRN albuterol sulfate 90 mcg/actuation (ProAir HFA) 1 inh inhalation QID PRN 30 days cholecalciferol (vitamin D3) 25 mcg PO DAILY 90 days ferrous sulfate 324 mg PO BID 90 days fluticasone propionate 50 mcg/actuation (Flonase Allergy Relief) 1 spray intranasal DAILY 30 days fluticasone propionate 110 mcg/actuation 110 mcg inhalation BID 30 days loratadine 10 mg PO DAILY 90 days montelukast 10 mg PO DAILY 90 days progesterone micronized (Prometrium) 200 mg PO BEDTIME 10 days Do you need a note to return to daycare/school/sports/work: Yes HPI EST/asthma acting up [phone] HPI Details Patient presents for a sick visit. Reporting symptoms of sinus congestion, sore throat and difficulty swallowing. Low-grade fever. No family member is sick. No recent travel. Patient reports symptoms of malaise and fatigue. [facility] Medical History HSV (herpes simplex virus) infection Adult BMI 45.0-49.9 kg/sq m Change in mole Prediabetes Elevated parathyroid hormone Elevated testosterone level Heavy menstrual bleeding Menometrorrhagia Hx of renal calculi Hx of constipation GERD (gastroesophageal reflux disease) Hx of iron deficiency History of asthma Surgical History History of vocal cord polypectomy Family History Father Diabetes mellitus Mother No problems noted. Brother No problems noted. Social History Housing: House Alcohol intake: never Patient Tobacco Use Status: Never used Tobacco e-Cigarette/Vaping Use: Never Used Second Hand Smoke Exposure: No service: No Current occupational status: employed Current occupation: [employer] in [employer]. Current occupational exposures/hazards: No Gender identity: Female Cognitive needs: No Hearing needs: No Vision needs: No Female Reproductive History Menstrual Age of Menarche: 9 Physical Exam Vital Signs: Last Vital Signs Temp 97.8 F 12/01/22 16:45 Pulse 77 12/01/22 16:45 BP 128/74 12/01/22 16:45 Pulse Ox 100 12/01/22 16:45 Oxygen Delivery Method Room Air 12/01/22 16:45 BMI result Body Mass Index 51.1 Const General: cooperative and healthy appearing Nutritional Appearance: well nourished Orientation/consciousness: patient oriented x3 Limitations: no limitations HEENT Head: Yes normal to inspection Eyes General: appearance normal, both eyes and all related structures Neck Neck: Yes normal visual inspection Chest Chest palpation & inspection: normal palpation of entire chest wall Resp Effort & Inspection: normal respiratory effort Neuro General: patient oriented x3 Assessment & Plan Assessment & Plan (1) URI (upper respiratory infection): Code(s): J06.9 - Acute upper respiratory infection, unspecified Plan: Antibiotics ordered. Increase fluid intake. Tylenol for aches and pains. If symptoms worsen, follow-up here for a recheck. Medications: Refilled albuterol sulfate 90 mcg/actuation 2 puffs inhalation Q4-6H PRN 8.5 grams 0RF shortness of breath or wheezing fluticasone propionate 110 mcg/actuation 110 mcg inhalation BID 12 grams 5RF 30 days Coding Level of Care Code Est Pt Level 3 (42651) Diagnoses URI (upper respiratory infection) J06.9
== END 2022-12-01 17:00 | disposition home or self-care (01) ==
PROVIDERS: PCP Internal Medicine; Visit Provider Internal Medicine
DX: J06.9 Acute upper respiratory infection, unspecified (principal)
CPT/HCPCS: 99213

== ENCOUNTER 2022-12-10 08:22 | Outpatient (AMB) | payer OTHER, SELFPAY ==
--- NOTE | 2022-12-10 08:30 | A.OFFPC_ITS ---
Intake Visit Reasons: FMLA forms [id number] Allergies No Known Allergies [No Known Allergies*] Allergy (Verified 12/10/22 08:31) Medication List - Last Reconciled 12/10/22 by Aurea De León MD albuterol sulfate 90 mcg/actuation 2 puffs inhalation Q4-6H PRN albuterol sulfate 90 mcg/actuation (ProAir HFA) 1 inh inhalation QID PRN 30 days cholecalciferol (vitamin D3) 25 mcg PO DAILY 90 days ferrous sulfate 324 mg PO BID 90 days fluticasone propionate 50 mcg/actuation (Flonase Allergy Relief) 1 spray intranasal DAILY 30 days fluticasone propionate 110 mcg/actuation 110 mcg inhalation BID 30 days loratadine 10 mg PO DAILY 90 days montelukast 10 mg PO DAILY 90 days Tobacco use date assessed: 12/10/22 Dental Screening Dental Screen Date: 12/10/22 Did you have a dental visit in the last 12 months?: Yes Did you have a dental problem in the last 6 months where you did not have access to dental care?: No Was dental information given to patient?: Patient has dentist HPI FMLA forms [phone] HPI Details Patient is 27-year-old female this is a telemedicine video conference to fill more paperwork due to her illness Patient went to [facility] and got sick. She was not able to come back on time and missed some days from work because of the illness. For more details please refer to my last office note from early this month. Patient was ill from 10/26/2022 until 11/24/2022. she is doing well now, how ever her rash on legs keep peeling, but is not painful and is healing she has gone back to work [facility] Medical History HSV (herpes simplex virus) infection Adult BMI 45.0-49.9 kg/sq m Change in mole Prediabetes Elevated parathyroid hormone Elevated testosterone level Heavy menstrual bleeding Menometrorrhagia Hx of renal calculi Hx of constipation GERD (gastroesophageal reflux disease) Hx of iron deficiency History of asthma Surgical History History of vocal cord polypectomy Family History Father Diabetes mellitus Mother No problems noted. Brother No problems noted. 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 Current occupational exposures/hazards: No Gender identity: Female Cognitive needs: No Hearing needs: No Vision needs: No Female Reproductive History Menstrual Age of Menarche: 9 Questionnaire Thrive Questionnaire Date Thrive assessed: 11/27/22 AUDIT C Alcohol Use Questionnaire (AUDIT-C) 1. How often do you have a drink containing alcohol?: Never 3. How often do you have six or more drinks on one occasion?: Never Total Score: 0 Score Reviewed/Action Taken: Yes SHERITA-7 AMB Questionnaire SHERITA-7 Date SHERITA - 7 assessed: 11/27/22 Source: Developed by Drs. Maldonado Rivas, Shannan Ramos, Britton Gunn and colleagues, with an educational eugene from [employer]. Review of Systems Const Denies chills and Denies fever(s) ENT Denies epistaxis and Denies nasal discharge Card Denies chest pain Resp Denies chest congestion, Denies cough and Denies hemoptysis GI Denies diarrhea and Denies nausea Neuro Reports no additional complaints Psych Reports no additional complaints Endo Reports no additional complaints Physical exam (Primary Care) Tobacco/Smoking Status: Tobacco use Status Tobacco use date assessed 12/10/22 12/10/22 08:32 Patient Tobacco Use Status Never used Tobacco 12/10/22 08:32 e-Cigarette/Vaping Use Never Used 12/10/22 08:32 Thrive Assessment: Date of Thrive Assessment Date Thrive assessed 11/27/22 12/10/22 08:32 Telehealth Telehealth Location of provider rendering services: practice address Location of patient: address on file Patient Identification confirmed using: Name, : Yes Telehealth method: video Patient verbally consented to treatment: Yes Patient verbally consented to billing insurance company: Yes Patient informed of any privacy concerns related to visit: Yes Minutes spent on Phone/Video with Pt.: 14 Assessment and Plan Assessment & Plan (1) Travel-related illness: Code(s): R69 - Illness, unspecified (2) Peeling skin: Code(s): R23.4 - Changes in skin texture Plan Patient is 27-year-old female this is a telemedicine video conference to fill more paperwork due to her illness Patient went to [place] and got sick. She was not able to come back on time and missed some days from work because of the illness. For more details please refer to my last office note from early this month. Patient was ill from 10/26/2022 until 11/24/2022. she is doing well now, how ever her rash on legs keep peeling, but is not painful and is healing she has gone back to work Coding Level of Care Code Tele Est Pt Level 3 (97870) Diagnoses Travel-related illness R69 Peeling skin R23.4
== END 2022-12-10 09:50 | disposition home or self-care (01) ==
LOC: HO.HMGC 08:22
PROVIDERS: PCP Internal Medicine; Visit Provider Internal Medicine
DX: R69 Illness, unspecified (principal); R23.4 Changes in skin texture
CPT/HCPCS: 99213

== ENCOUNTER 2023-02-24 10:33 | Outpatient (AMB) | payer OTHER, SELFPAY ==
[2023-02-24 10:40] VITALS: BP 126/74; PULSE 82; O2SAT 97; BMI 52.6
--- NOTE | 2023-02-24 10:40 | MHC.PC.OV ---
Vital Signs 02/24/23 10:40 Height 5 ft 5 in Weight 316 lb 6 oz BMI 52.6 BP 126/74 Blood Pressure Location Rt brachial Position Sitting Pulse 82 Pulse Source Pulse Oximeter Pulse Oximetry (%) 97 Oxygen Delivery Method Room Air Intake Visit Reasons: Annual PE Allergies No Known Allergies [No Known Allergies*] Allergy (Verified 02/24/23 10:45) Medication List - Last Reconciled 02/24/23 by Aurea De León MD albuterol sulfate 90 mcg/actuation 2 puffs inhalation Q4-6H PRN albuterol sulfate 90 mcg/actuation (ProAir HFA) 1 inh inhalation QID PRN 30 days ferrous sulfate 324 mg PO BID 90 days fluticasone propionate 50 mcg/actuation (Flonase Allergy Relief) 1 spray intranasal DAILY 30 days fluticasone propionate 110 mcg/actuation 110 mcg inhalation BID 30 days loratadine 10 mg PO DAILY 90 days montelukast 10 mg PO DAILY 90 days Tobacco use date assessed: 02/24/23 Dental Screening Dental Screen Date: 02/24/23 Did you have a dental visit in the last 12 months?: Yes Did you have a dental problem in the last 6 months where you did not have access to dental care?: No Was dental information given to patient?: Patient has dentist HPI Annual PE HPI Details Patient is 27-year-old female came in today for physical exam Patient has OBGYN for breast exam and Pap smear Due for lab order placed printed and handed to patient as she is enrolled in weight loss program [facility] And patient will have it done there. Asthma stable she need refills on her inhaler Allergies are stable as well however due to winter season they are acting up and patient ran out of her medications She also have iron-deficiency anemia and is in need of iron supplement refill We will check CBC and iron level as well Patient had elevated calcium with hyperparathyroidism I did refer her to endocrinology but it seems as if patient has lost follow-ups She said she will call them. BMI is 52.6 patient has gained more weight. She declined flu vaccine today [facility] Medical History HSV (herpes simplex virus) infection Adult BMI 45.0-49.9 kg/sq m Change in mole Prediabetes Elevated parathyroid hormone Elevated testosterone level Heavy menstrual bleeding Menometrorrhagia Hx of renal calculi Hx of constipation GERD (gastroesophageal reflux disease) Hx of iron deficiency History of asthma Surgical History History of vocal cord polypectomy Family History Father Diabetes mellitus Mother No problems noted. Brother No problems noted. Social History Housing: House Alcohol intake: never Patient Tobacco Use Status: Never used Tobacco e-Cigarette/Vaping Use: Never Used Second Hand Smoke Exposure: No service: No Current occupational status: employed Current occupation: [employer] in [employer]. Current occupational exposures/hazards: No Gender identity: Female Cognitive needs: No Hearing needs: No Vision needs: No Female Reproductive History Menstrual Age of Menarche: 9 Questionnaire PHQ-9 Over the last 2 weeks, how often have you been bothered by any of the following problems? 1. Little interest or pleasure in doing things: several days 2. Feeling down, depressed, or hopeless: more than half the days 3. Trouble falling or staying asleep, or sleeping too much: nearly every day 4. Feeling tired or having little energy: nearly every day 5. Poor appetite or overeating: nearly every day 6. Feeling bad about yourself - or that you are a failure or have let yourself or your family down: several days 7. Trouble concentrating on things, such as reading the newspaper or watching television: more than half the days 8. Moving or speaking so slowly that other people could have noticed. Or the opposite - being so fidgety or restless that you have been moving around a lot more than usual: nearly every day 9. Thoughts that you would be better off or of hurting yourself in some way: not at all Total score: 18 Depression Screening Interpretation: Positive Depression Screening Follow-up: In treatment Depression Screening Done: Yes 27719 - PHQ-9 Billing: Yes Source: Developed by Drs. Maldonado Rivas, Shannan Ramos, Britton Gunn and colleagues, with an educational eugene from [employer]. Thrive Questionnaire Date Thrive assessed: 11/27/22 SHERITA-7 AMB Questionnaire SHERITA-7 Date SHERITA - 7 assessed: 11/27/22 Source: Developed by Drs. Maldonado Rivas, Shannan Ramos, Britton Gunn and colleagues, with an educational eugene from [employer]. ACT Questionnaire In the past 4 weeks, how much of the time did your asthma keep you from getting as much done at work, school or at home?: A little of the time During the past 4 weeks, how often have you had shortness of breath?: More than once a day During the past 4 weeks, how often did your asthma symptoms wake you up at night or earlier than usual in the morning?: 2-3 nights a week During the past 4 weeks, how often have you had to use your rescue inhaler or nebulizer medication?: 2-3 times a week How would you rate your asthma control during the past 4 weeks?: Well controlled ACT Interpretation: Negative Score: 14 Review of Systems Const Denies chills, Denies fever(s) and Denies headache(s) Eyes Denies blurry vision ENT Denies headache(s), Denies nasal discharge, Denies nasal obstruction, Denies odynophagia and Denies sinus pain Card Denies chest pain at rest and Denies chest pain with activity Resp Denies cough and Denies hemoptysis GI Denies diarrhea, Denies odynophagia, Denies vomiting and Denies hematemesis Reports as per HPI Musc Denies abnormal gait Skin/Breast Reports as per HPI Neuro Denies Neuro-related abnormal movements, Denies Abnormal speech present, Denies abnormal gait, Denies headache(s) and Denies Sensory deficit (Neuro) Psych Denies mood swings and Denies paranoia Endo Reports as per HPI Kenny/Lymph Reports as per HPI Aller/Immun Reports as per HPI Physical exam (Primary Care) Vital Signs: Last Vital Signs Pulse 82 02/24/23 10:40 BP 126/74 02/24/23 10:40 Pulse Ox 97 02/24/23 10:40 Oxygen Delivery Method Room Air 02/24/23 10:40 BMI result Body Mass Index 52.6 Tobacco/Smoking Status: Tobacco use Status Tobacco use date assessed 02/24/23 02/24/23 10:45 Patient Tobacco Use Status Never used Tobacco 02/24/23 10:45 e-Cigarette/Vaping Use Never Used 02/24/23 10:45 PHQ-9: PHQ-9 Score PHQ-9: Total score 18 02/24/23 11:10 Depression Screening Interpretation: Positive Depression Screening Follow-up: In treatment Thrive Assessment: Date of Thrive Assessment Date Thrive assessed 11/27/22 02/24/23 10:45 Const General: cooperative, comfortable and no acute distress Orientation/consciousness: patient oriented x3 HENMT Head: Yes normocephalic and Yes atraumatic Eyes General: appearance normal, both eyes and all related structures Pupils: Equal, round and reactive pupils present EOM: EOMs intact bilaterally Neck Neck: Yes supple and No lymphadenopathy Resp Effort & Inspection: normal respiratory effort and able to speak in complete sentences Auscultation: clear to auscultation bilaterally Cardio Heart sounds: S1 normal heart sound present and S2 normal heart sound present GI Palpation (GI): Soft to palpation and nontender Auscultation: normal bowel sounds General: Yes no CVA tenderness Back/Spine/Pelvis Back: no CVA tenderness Skin General skin exam: elasticity normal and turgor normal Neuro General: patient oriented x3 and gait normal Cranial nerves: Yes Equal, round and reactive pupils present Speech: No Abnormal speech present Sensory Exam: No Sensory deficit (Neuro) Coordination: tandem gait normal and Romberg test negative Extrem General: Yes normal exam except as noted and No edema Assessment and Plan Assessment & Plan (1) Encounter for general adult medical examination with abnormal findings: Code(s): Z00.01 - Encounter for general adult medical examination with abnormal findings (2) Morbid obesity: Onset Date: Unknown Code(s): E66.01 - Morbid (severe) obesity due to excess calories (3) Major depression, recurrent: Comment: Patient is in therapy Code(s): F33.9 - Major depressive disorder, recurrent, unspecified Qualifiers: Active/Remission status: currently active Major depression episode severity: moderate Qualified Code(s): F33.1 - Major depressive disorder, recurrent, moderate (4) LFT elevation: Code(s): R79.89 - Other specified abnormal findings of blood chemistry (5) Iron deficiency anemia: Code(s): D50.9 - Iron deficiency anemia, unspecified Qualifiers: Iron deficiency anemia type: chronic blood loss Qualified Code(s): D50.0 - Iron deficiency anemia secondary to blood loss (chronic) (6) Hyperparathyroidism: Code(s): E21.3 - Hyperparathyroidism, unspecified (7) Asthma, moderate: Code(s): J45.909 - Unspecified asthma, uncomplicated Qualifiers: Asthma complication type: uncomplicated Asthma persistence: persistent Qualified Code(s): J45.40 - Moderate persistent asthma, uncomplicated (8) Prediabetes: Code(s): R73.03 - Prediabetes (9) PCOS (polycystic ovarian syndrome): Code(s): E28.2 - Polycystic ovarian syndrome Plan Patient is 27-year-old female came in today for physical exam Patient has OBGYN for breast exam and Pap smear Due for lab order placed printed and handed to patient as she is enrolled in weight loss program [facility] And patient will have it done there. Asthma stable she need refills on her inhaler Allergies are stable as well however due to winter season they are acting up and patient ran out of her medications She also have iron-deficiency anemia and is in need of iron supplement refill We will check CBC and iron level as well Patient had elevated calcium with hyperparathyroidism I did refer her to endocrinology but it seems as if patient has lost follow-ups She said she will call them. BMI is 52.6 patient has gained more weight. She declined flu vaccine today Orders: Orders Complete Blood Count Auto Diff Today D50.9 - Iron deficiency anemia, unspecified, E21.3 - Hyperparathyroidism, unspecified, E28.2 - Polycystic ovarian syndrome, E66.01 - Morbid (severe) obesity due to excess calories, F33.9 - Major depressive disorder, recurrent, unspecified, J45.909 - Unspecified asthma, uncomplicated, R73.03 - Prediabetes, R79.89 - Other specified abnormal findings of blood chemistry, Z00.01 - Encounter for general adult medical examination with abnormal findings Comprehensive [place]. Panel Fast Today D50.9 - Iron deficiency anemia, unspecified, E21.3 - Hyperparathyroidism, unspecified, E28.2 - Polycystic ovarian syndrome, E66.01 - Morbid (severe) obesity due to excess calories, F33.9 - Major depressive disorder, recurrent, unspecified, J45.909 - Unspecified asthma, uncomplicated, R73.03 - Prediabetes, R79.89 - Other specified abnormal findings of blood chemistry, Z00.01 - Encounter for general adult medical examination with abnormal findings Lipid Panel Today D50.9 - Iron deficiency anemia, unspecified, E21.3 - Hyperparathyroidism, unspecified, E28.2 - Polycystic ovarian syndrome, E66.01 - Morbid (severe) obesity due to excess calories, F33.9 - Major depressive disorder, recurrent, unspecified, J45.909 - Unspecified asthma, uncomplicated, R73.03 - Prediabetes, R79.89 - Other specified abnormal findings of blood chemistry, Z00.01 - Encounter for general adult medical examination with abnormal findings Ferritin Today D50.9 - Iron deficiency anemia, unspecified, E21.3 - Hyperparathyroidism, unspecified, E28.2 - Polycystic ovarian syndrome, E66.01 - Morbid (severe) obesity due to excess calories, F33.9 - Major depressive disorder, recurrent, unspecified, J45.909 - Unspecified asthma, uncomplicated, R73.03 - Prediabetes, R79.89 - Other specified abnormal findings of blood chemistry, Z00.01 - Encounter for general adult medical examination with abnormal findings TSH reflex Free T4 Today D50.9 - Iron deficiency anemia, unspecified, E21.3 - Hyperparathyroidism, unspecified, E28.2 - Polycystic ovarian syndrome, E66.01 - Morbid (severe) obesity due to excess calories, F33.9 - Major depressive disorder, recurrent, unspecified, J45.909 - Unspecified asthma, uncomplicated, R73.03 - Prediabetes, R79.89 - Other specified abnormal findings of blood chemistry, Z00.01 - Encounter for general adult medical examination with abnormal findings Medications: Refilled montelukast 10 mg PO DAILY 90 tabs 1RF 90 days loratadine 10 mg PO DAILY 90 tabs 0RF 90 days fluticasone propionate 110 mcg/actuation 110 mcg inhalation BID 12 grams 5RF 30 days fluticasone propionate 50 mcg/actuation (Flonase Allergy Relief) administer into each nostril 1 spray intranasal DAILY 16 grams 5RF 30 days ferrous sulfate 324 mg PO BID 180 tabs 0RF 90 days albuterol sulfate 90 mcg/actuation (ProAir HFA) 1 inh inhalation QID PRN 18 grams 5RF shortness of breath or wheezing 30 days Coding Level of Care Code Est Pt Prev Care 18-39y(43550) Diagnoses Encounter for general adult medical examination with abnormal findings Z00.01 Morbid obesity E66.01 Moderate episode of recurrent major depressive disorder F33.1 Active/Remission status: currently active Major depression episode severity: moderate LFT elevation R79.89 Iron deficiency anemia due to chronic blood loss D50.0 Iron deficiency anemia type: chronic blood loss Hyperparathyroidism E21.3 Moderate persistent asthma without complication J45.40 Asthma complication type: uncomplicated Asthma persistence: persistent Prediabetes R73.03 PCOS (polycystic ovarian syndrome) E28.2
== END 2023-02-24 11:23 | disposition home or self-care (01) ==
PROVIDERS: Visit Provider Internal Medicine
DX: Z00.00 Encounter for general adult medical examination without abnormal findings (principal); E66.01 Morbid (severe) obesity due to excess calories; F33.1 Major depressive disorder, recurrent, moderate; Z68.43 Body mass index [BMI] 50.0-59.9, adult; E21.3 Hyperparathyroidism, unspecified; R79.89 Other specified abnormal findings of blood chemistry; D50.0 Iron deficiency anemia secondary to blood loss (chronic); J45.40 Moderate persistent asthma, uncomplicated; R73.03 Prediabetes; E28.2 Polycystic ovarian syndrome
CPT/HCPCS: 99395

== ENCOUNTER 2023-04-07 14:28 | Outpatient (AMB) | payer OTHER, SELFPAY ==
--- NOTE | 2023-04-07 15:15 | MHC.OFFWIV ---
Intake Vital Signs 04/07/23 15:16 Height 5 ft 5 in Weight 316 lb BMI 52.6 BP 122/76 Blood Pressure Location Rt brachial Position Sitting Pulse 77 Pulse Source Pulse Oximeter Temp 98.3 F Temp Source Oral Pulse Oximetry (%) 97 Oxygen Delivery Method Room Air Intake Visit Reasons: EST/congestion (lobby) Intake Note: pt is here for c.o cough with congestion for about 2 weeks Patient Tobacco Use Status: Never used Tobacco Allergies No Known Allergies [No Known Allergies*] Allergy (Verified 04/07/23 15:16) Do you need a note to return to daycare/school/sports/work: Yes HPI HPI Comments History of Present Illness Details This is a 28-year-old female with a past medical history of asthma, anemia and obstructive sleep apnea, compliant with her CPAP machine nightly, presenting for evaluation of a cough and chest congestion that she has had for the past 2 weeks. Patient denies having any fevers, chills, ear pain, sore throat, chest pain or overt shortness of breath. Patient states she has been using her albuterol inhaler at least once daily and she does not yet feel that it is effective any longer. Patient states that she does not want to take prednisone because it makes her feel too ?jumpy?. [facility] Medical History HSV (herpes simplex virus) infection Adult BMI 45.0-49.9 kg/sq m Change in mole Prediabetes Elevated parathyroid hormone Elevated testosterone level Heavy menstrual bleeding Menometrorrhagia Hx of renal calculi Hx of constipation GERD (gastroesophageal reflux disease) Hx of iron deficiency History of asthma Surgical History History of vocal cord polypectomy Family History Father Diabetes mellitus Mother No problems noted. Brother No problems noted. Social History Housing: House Alcohol intake: never Patient Tobacco Use Status: Never used Tobacco e-Cigarette/Vaping Use: Never Used Second Hand Smoke Exposure: No service: No Current occupational status: employed Current occupation: [employer] in [employer]. Current occupational exposures/hazards: No Gender identity: Female Cognitive needs: No Hearing needs: No Vision needs: No Female Reproductive History Menstrual Age of Menarche: 9 Review of Systems Const All systems reviewed & are unremarkable except as noted in HPI and below Denies chills and Denies fever(s) Eyes Reports as per HPI ENT Reports no additional complaints Card Reports as per HPI and Denies dyspnea Resp Reports as per HPI, Reports cough, Denies hemoptysis, Denies dyspnea and Denies wheezing GI Denies heartburn, Denies nausea and Denies vomiting Skin/Breast Reports system reviewed and no additional complaints, except as documented Aller/Immun Denies wheezing Physical Exam Vital Signs: Last Vital Signs Temp 98.3 F 04/07/23 15:16 Pulse 77 04/07/23 15:16 BP 122/76 04/07/23 15:16 Pulse Ox 97 04/07/23 15:16 Oxygen Delivery Method Room Air 04/07/23 15:16 BMI result Body Mass Index 52.6 Patient is afebrile with POX 97%. Const General: cooperative, healthy appearing, comfortable and well developed; No lethargic Nutritional Appearance: obese Orientation/consciousness: patient oriented x3 and No lethargic Limitations: no limitations HEENT Head: Yes normal to inspection General nose exam: Normal external nose present Face and sinus: Yes normal facial exam and Yes sinuses nontender Mouth: Normal oral and palatal mucosa present and oropharynx normal Teeth and gingiva: dentition normal Throat: Yes posterior oropharynx normal, Yes posterior oropharynx abnormal and No postnasal drainage Eyes General: appearance normal, both eyes and all related structures Eyelids: Yes eyelids normal Conjunctivae: conjunctivae normal Sclerae: sclerae normal Corneas: corneas normal Pupils: Equal, round and reactive pupils present EOM: EOMs intact bilaterally Neck Lymphatic: no lymphadenopathy noted Resp Effort & Inspection: normal respiratory effort, able to speak in complete sentences, normal respiratory pattern, no audible wheezes, Actively coughing and no use of accessory muscles Auscultation: clear to auscultation bilaterally, no crackles, no rales, no rhonchi, wheezes and lung sounds not diminished Cardio Rate: regular rate Rhythm: regular rhythm Skin General skin exam: no rashes or lesions noted Neuro General: patient oriented x3 Cranial nerves: Yes Equal, round and reactive pupils present Psych Appearance: grossly normal Mental Status: mental status grossly normal Insight: Good insight present (Psych) Judgement: Good judgement present (Psych) Assessment & Plan Assessment & Plan (1) URI (upper respiratory infection): Comment: Patient seen and evaluated. She has audible wheezes on auscultation however is declining prednisone. Given this patient's vital signs I do not feel that any urgent imaging is warranted. Code(s): J06.9 - Acute upper respiratory infection, unspecified Qualifiers: URI type: unspecified viral URI Qualified Code(s): J06.9 - Acute upper respiratory infection, unspecified Plan: Mucinex OTC with increase clear fluids daily. Patient will follow up with her primary care provider for any worsening symptoms. SARS panel is ordered and pending. Orders: Orders SARS-CoV2/FLU/RSV Today R05.9 - Cough, unspecified Coding Level of Care Code Est Pt Level 3 (90280) Diagnoses Viral upper respiratory tract infection J06.9 URI type: unspecified viral URI Time Spent (min) 30
[2023-04-07 15:16] VITALS: BP 122/76; PULSE 77; TEMP 36.8; O2SAT 97; BMI 52.6
== END 2023-04-07 15:49 | disposition home or self-care (01) ==
PROVIDERS: PCP Internal Medicine; Visit Provider Physician Assistant
DX: J06.9 Acute upper respiratory infection, unspecified (principal)
CPT/HCPCS: 99213

== ENCOUNTER 2023-04-07 16:10 | Outpatient (REF) | payer OTHER, SELFPAY ==
[2023-04-08 12:50] LABS: Influenza A PCR NEGATIVE (Negative); Influenza B PCR NEGATIVE (Negative); Resp Syncy Virus RNA Qual PCR NEGATIVE (Negative); SARS COV2 PCR INHOUSE NEGATIVE (Negative)
== END 2023-04-07 16:11 | disposition home or self-care (01) ==
LOC: HO.LAB 16:10
PROVIDERS: Visit Provider Physician Assistant
DX: Z11.52 Encounter for screening for COVID-19 (principal); Z20.822 Contact with and (suspected) exposure to COVID-19; R05.9 Cough, unspecified
CPT/HCPCS: 0241U

== ENCOUNTER 2023-04-08 08:30 | Outpatient (AMB) | payer OTHER, SELFPAY ==
--- NOTE | 2023-04-08 08:38 | A.OFFPC_ITS ---
Vital Signs 04/08/23 08:38 Height 5 ft 5 in Intake Visit Reasons: Sick Visit~[phone] Allergies No Known Allergies [No Known Allergies*] Allergy (Verified 04/08/23 08:38) Medication List - Last Reconciled 04/08/23 by Aurea De León MD albuterol sulfate 90 mcg/actuation 2 puffs inhalation Q4-6H PRN albuterol sulfate 90 mcg/actuation (ProAir HFA) 1 inh inhalation QID PRN 30 days budesonide-formoterol 160-4.5 mcg/actuation (Symbicort) 2 puffs inhalation BID 30 days ergocalciferol (vitamin D2) 1,250 mcg PO QWEEK ferrous sulfate 324 mg PO BID 90 days fluticasone propionate 50 mcg/actuation (Flonase Allergy Relief) 1 spray intranasal DAILY 30 days ibuprofen 400 mg PO Q8H PRN 30 days loratadine 10 mg PO DAILY 90 days montelukast 10 mg PO DAILY 90 days phentermine 15 mg PO DAILY Tobacco use date assessed: 04/08/23 Dental Screening Dental Screen Date: 04/08/23 Did you have a dental visit in the last 12 months?: Yes Did you have a dental problem in the last 6 months where you did not have access to dental care?: No Was dental information given to patient?: Patient has dentist HPI Sick Visit~[phone] HPI Details Patient is 28-year-old female she was seen in walk-in clinic yesterday with a chief complaint of cough Her symptoms started 2 weeks ago, patient have a history of asthma She is having tightness in her chest, coughing, having chest congestion. Using her albuterol inhaler more frequently Yesterday she was offered prednisone which she declined Patient says that she feels very jittery taking prednisone but she is willing to take it now since she is feeling short of breath On we do patient was able to take deep breath, however she was coughing I have sent prednisone small dose 10 mg once a day for 5 days I have also sent lorazepam 0.5 mg to be taken with prednisone so she can stay come Azithromycin I have also sent are different inhaler Symbicort that she is to take 2 times a day and rinse her mouth later Her COVID in RSV test is missing in the chart I have sent a message to office so they can locate that [facility] Medical History HSV (herpes simplex virus) infection Adult BMI 45.0-49.9 kg/sq m Change in mole Prediabetes Elevated parathyroid hormone Elevated testosterone level Heavy menstrual bleeding Menometrorrhagia Hx of renal calculi Hx of constipation GERD (gastroesophageal reflux disease) Hx of iron deficiency History of asthma Surgical History History of vocal cord polypectomy Family History Father Diabetes mellitus Mother No problems noted. Brother No problems noted. Social History Housing: House Alcohol intake: never Patient Tobacco Use Status: Never used Tobacco e-Cigarette/Vaping Use: Never Used Second Hand Smoke Exposure: No service: No Current occupational status: employed Current occupation: [employer] in [employer]. Current occupational exposures/hazards: No Gender identity: Female Cognitive needs: No Hearing needs: No Vision needs: No Female Reproductive History Menstrual Age of Menarche: 9 Questionnaire Thrive Questionnaire Date Thrive assessed: 11/27/22 AUDIT C Alcohol Use Questionnaire (AUDIT-C) 1. How often do you have a drink containing alcohol?: Never 3. How often do you have six or more drinks on one occasion?: Never Total Score: 0 Score Reviewed/Action Taken: Yes SHERITA-7 AMB Questionnaire SHERITA-7 Date SHERITA - 7 assessed: 11/27/22 Source: Developed by Drs. Maldonado Rivas, Shannan Ramos, Britton Gunn and colleagues, with an educational eugene from [employer]. Review of Systems ENT Denies epistaxis and Denies nasal discharge Card Denies chest pain Resp Denies hemoptysis GI Denies diarrhea and Denies nausea Skin/Breast Denies rash Neuro Reports no additional complaints Psych Reports no additional complaints Endo Reports no additional complaints Physical exam (Primary Care) Tobacco/Smoking Status: Tobacco use Status Tobacco use date assessed 04/08/23 04/08/23 08:39 Patient Tobacco Use Status Never used Tobacco 04/08/23 08:39 e-Cigarette/Vaping Use Never Used 04/08/23 08:39 Thrive Assessment: Date of Thrive Assessment Date Thrive assessed 11/27/22 04/08/23 08:39 Telehealth Telehealth Location of provider rendering services: practice address Location of patient: address on file Patient Identification confirmed using: Name, : Yes Telehealth method: video Patient verbally consented to treatment: Yes Patient verbally consented to billing insurance company: Yes Patient informed of any privacy concerns related to visit: Yes Assessment and Plan Assessment & Plan (1) Acute bronchitis: Code(s): J20.9 - Acute bronchitis, unspecified Qualifiers: Bronchitis organism: other organism Qualified Code(s): J20.8 - Acute bronchitis due to other specified organisms (2) Shortness of breath: Code(s): R06.02 - Shortness of breath (3) Asthma exacerbation: Code(s): J45.901 - Unspecified asthma with (acute) exacerbation Qualifiers: Asthma severity: moderate Asthma persistence: persistent Qualified Code(s): J45.41 - Moderate persistent asthma with (acute) exacerbation Plan Patient is 28-year-old female she was seen in walk-in clinic yesterday with a chief complaint of cough Her symptoms started 2 weeks ago, patient have a history of asthma She is having tightness in her chest, coughing, having chest congestion. Using her albuterol inhaler more frequently Yesterday she was offered prednisone which she declined Patient says that she feels very jittery taking prednisone but she is willing to take it now since she is feeling short of breath On we do patient was able to take deep breath, however she was coughing I have sent prednisone small dose 10 mg once a day for 5 days I have also sent lorazepam 0.5 mg to be taken with prednisone so she can stay come Azithromycin I have also sent are different inhaler Symbicort that she is to take 2 times a day and rinse her mouth later Her COVID in RSV test is missing in the chart I have sent a message to office so they can locate that Medications: New budesonide-formoterol 160-4.5 mcg/actuation (Symbicort) 2 puffs inhalation BID 30 days 10.2 grams 0RF J45.909 - Unspecified asthma, uncomplicated prednisone 10 mg PO DAILY 5 days 5 tabs 0RF azithromycin Take 2 tablets today then 1 daily 250 mg PO ONCE 5 days 6 tabs 0RF J06.9 - Acute upper respiratory infection, unspecified lorazepam 0.5 mg PO DAILY 5 days PRN 5 tabs 0RF anxiety Discontinued budesonide 90 mcg/actuation (Pulmicort Flexhaler) Discontinued Reason: Doctor's Order 1 inh inhalation BID 1 ea 2RF Coding Level of Care Code Tele Est Pt Level 4 (67499) Diagnoses Acute bronchitis due to other specified organisms J20.8 Bronchitis organism: other organism Shortness of breath R06.02 Moderate persistent asthma with exacerbation J45.41 Asthma severity: moderate Asthma persistence: persistent Time Spent (min) 26 Comment 3 pre visit / 16 with patient/ 7 charting , coordination of care
== END 2023-04-08 11:57 | disposition home or self-care (01) ==
LOC: HO.HMGC 08:30
PROVIDERS: PCP Internal Medicine; Visit Provider Internal Medicine
DX: J20.8 Acute bronchitis due to other specified organisms (principal); R06.02 Shortness of breath; J45.41 Moderate persistent asthma with (acute) exacerbation
CPT/HCPCS: 99214

== ENCOUNTER 2023-04-21 14:58 | Outpatient (AMB) | payer OTHER, SELFPAY ==
[2023-04-21 14:59] VITALS: BP 120/78; PULSE 85; O2SAT 97; BMI 52.2
--- NOTE | 2023-04-21 14:59 | MHC.PC.OV ---
Vital Signs 04/21/23 14:59 Height 5 ft 5 in Weight 314 lb BMI 52.2 BP 120/78 Blood Pressure Location Rt brachial Position Sitting Pulse 85 Pulse Source Pulse Oximeter Pulse Oximetry (%) 97 Oxygen Delivery Method Room Air Intake Visit Reasons: 4 Wk F/U Allergies No Known Allergies [No Known Allergies*] Allergy (Verified 04/21/23 15:00) Medication List - Last Reconciled 04/21/23 by Aurea De León MD albuterol sulfate 90 mcg/actuation 2 puffs inhalation Q4-6H PRN albuterol sulfate 90 mcg/actuation (ProAir HFA) 1 inh inhalation QID PRN 30 days budesonide-formoterol 160-4.5 mcg/actuation (Symbicort) 2 puffs inhalation BID 30 days ergocalciferol (vitamin D2) 1,250 mcg PO QWEEK ferrous sulfate 324 mg PO BID 90 days fluticasone propionate 50 mcg/actuation (Flonase Allergy Relief) 1 spray intranasal DAILY 30 days ibuprofen 400 mg PO Q8H PRN 30 days loratadine 10 mg PO DAILY 90 days lorazepam 0.5 mg PO DAILY PRN 5 days montelukast 10 mg PO DAILY 90 days phentermine 15 mg PO DAILY Tobacco use date assessed: 04/21/23 Dental Screening Dental Screen Date: 04/21/23 Did you have a dental visit in the last 12 months?: Yes Did you have a dental problem in the last 6 months where you did not have access to dental care?: No Was dental information given to patient?: Patient has dentist HPI 4 Wk F/U HPI Details Follow-up asthma exacerbation and acute bronchitis Patient is feeling better however continued to have wheezing at night and dry cough She is taking Symbicort which has helped a lot Patient is requesting refill which I have sent On examination she still have these on left side lung posteriorly I have ordered chest x-rays of further evaluate Meanwhile continue with the Symbicort She is taking phentermine patient will return in 4 weeks for weight management. [facility] Medical History HSV (herpes simplex virus) infection Adult BMI 45.0-49.9 kg/sq m Change in mole Prediabetes Elevated parathyroid hormone Elevated testosterone level Heavy menstrual bleeding Menometrorrhagia Hx of renal calculi Hx of constipation GERD (gastroesophageal reflux disease) Hx of iron deficiency History of asthma Surgical History History of vocal cord polypectomy Family History Father Diabetes mellitus Mother No problems noted. Brother No problems noted. Social History Housing: House Alcohol intake: never Patient Tobacco Use Status: Never used Tobacco e-Cigarette/Vaping Use: Never Used Second Hand Smoke Exposure: No service: No Current occupational status: employed Current occupation: [employer] in [employer]. Current occupational exposures/hazards: No Gender identity: Female Cognitive needs: No Hearing needs: No Vision needs: No Female Reproductive History Menstrual Age of Menarche: 9 Questionnaire Thrive Questionnaire Date Thrive assessed: 11/27/22 AUDIT C Alcohol Use Questionnaire (AUDIT-C) 1. How often do you have a drink containing alcohol?: Never 3. How often do you have six or more drinks on one occasion?: Never Total Score: 0 Score Reviewed/Action Taken: Yes SHERITA-7 AMB Questionnaire SHERITA-7 Date SHERITA - 7 assessed: 11/27/22 Source: Developed by Drs. Maldonado Rivas, Shannan Ramos, Britton Gunn and colleagues, with an educational eugene from [email or web address]. Review of Systems Const Denies chills and Denies fever(s) ENT Denies epistaxis and Denies nasal discharge Card Denies chest pain Resp Denies chest congestion and Denies hemoptysis GI Denies diarrhea and Denies nausea Skin/Breast Denies rash Neuro Reports no additional complaints Psych Reports no additional complaints Endo Reports no additional complaints Physical exam (Primary Care) Vital Signs: Last Vital Signs Pulse 85 04/21/23 14:59 BP 120/78 04/21/23 14:59 Pulse Ox 97 04/21/23 14:59 Oxygen Delivery Method Room Air 04/21/23 14:59 BMI result Body Mass Index 52.2 Tobacco/Smoking Status: Tobacco use Status Tobacco use date assessed 04/21/23 04/21/23 15:07 Patient Tobacco Use Status Never used Tobacco 04/21/23 14:59 e-Cigarette/Vaping Use Never Used 04/21/23 14:59 Thrive Assessment: Date of Thrive Assessment Date Thrive assessed 11/27/22 04/21/23 14:59 Const General: cooperative, comfortable and no acute distress Orientation/consciousness: patient oriented x3 HENMT Head: Yes normocephalic Eyes General: appearance normal, both eyes and all related structures Neck Neck: Yes supple Resp Other: Wheezing left lung posteriorly Effort & Inspection: normal respiratory effort and no stridor Cardio Rhythm: regular rhythm Heart sounds: S1 normal heart sound present and S2 normal heart sound present Skin General skin exam: turgor normal Neuro General: patient oriented x3, tone normal and moves all extremities Extrem Right lower extremity: no edema Left lower extremity: no edema Assessment and Plan Assessment & Plan (1) Acute bronchitis: Code(s): J20.9 - Acute bronchitis, unspecified Qualifiers: Bronchitis organism: other organism Qualified Code(s): J20.8 - Acute bronchitis due to other specified organisms (2) Asthma exacerbation: Code(s): J45.901 - Unspecified asthma with (acute) exacerbation Qualifiers: Asthma severity: moderate Asthma persistence: persistent Qualified Code(s): J45.41 - Moderate persistent asthma with (acute) exacerbation Plan Follow-up asthma exacerbation and acute bronchitis Patient is feeling better however continued to have wheezing at night and dry cough She is taking Symbicort which has helped a lot Patient is requesting refill which I have sent On examination she still have these on left side lung posteriorly I have ordered chest x-rays of further evaluate Meanwhile continue with the Symbicort She is taking phentermine patient will return in 4 weeks for weight management Orders: Orders XR chest 2V Today J20.9 - Acute bronchitis, unspecified, J45.901 - Unspecified asthma with (acute) exacerbation Medications: Refilled budesonide-formoterol 160-4.5 mcg/actuation (Symbicort) 2 puffs inhalation BID 10.2 grams 1RF 30 days J45.909 - Unspecified asthma, uncomplicated Coding Level of Care Code Est Pt Level 3 (79987) Diagnoses Acute bronchitis due to other specified organisms J20.8 Bronchitis organism: other organism Moderate persistent asthma with exacerbation J45.41 Asthma severity: moderate Asthma persistence: persistent
== END 2023-04-21 16:18 | disposition home or self-care (01) ==
PROVIDERS: PCP Internal Medicine; Visit Provider Internal Medicine
DX: J20.8 Acute bronchitis due to other specified organisms (principal); J45.41 Moderate persistent asthma with (acute) exacerbation
CPT/HCPCS: 99213

== ENCOUNTER 2023-04-21 15:13 | Outpatient (REF) | payer OTHER, SELFPAY ==
--- NOTE | ~2023-04-21 | XR_ITS ---
EXAMINATION: XR CHEST CLINICAL INFORMATION: Acute bronchitis. COMPARISON: None available. TECHNIQUE: 2 views of the chest were obtained. FINDINGS: No significant abnormality is noted involving the heart, lungs, mediastinum, bony thorax or soft tissues. XR/XR chest 2V IMPRESSION: Unremarkable chest examination.
== END 2023-04-21 15:14 | disposition home or self-care (01) ==
LOC: HO.HMGCX 15:13
PROVIDERS: PCP Internal Medicine; Visit Provider Internal Medicine
DX: J20.9 Acute bronchitis, unspecified (principal); J45.901 Unspecified asthma with (acute) exacerbation
CPT/HCPCS: 71046

== ENCOUNTER 2023-06-09 09:37 | Outpatient (AMB) | payer OTHER, SELFPAY ==
[2023-06-09 09:48] VITALS: BP 124/76; PULSE 80; O2SAT 96; BMI 52.8
--- NOTE | 2023-06-09 09:48 | A.OFFPC_ITS ---
Vital Signs 06/09/23 09:48 Height 5 ft 5 in Weight 317 lb 2 oz BMI 52.8 BP 124/76 Blood Pressure Location Rt brachial Position Sitting Pulse 80 Pulse Source Pulse Oximeter Pulse Oximetry (%) 96 Oxygen Delivery Method Room Air Intake Visit Reasons: 3 Month F/U Allergies No Known Allergies [No Known Allergies*] Allergy (Verified 06/09/23 09:52) Medication List - Last Reconciled 06/09/23 by Aurea De León MD albuterol sulfate 90 mcg/actuation 2 puffs inhalation Q4-6H PRN albuterol sulfate 90 mcg/actuation (ProAir HFA) 1 inh inhalation QID PRN 30 days budesonide-formoterol 160-4.5 mcg/actuation (Symbicort) 2 puffs inhalation BID 30 days ergocalciferol (vitamin D2) 1,250 mcg PO QWEEK ferrous sulfate 324 mg PO BID 90 days fluticasone propionate 50 mcg/actuation (Flonase Allergy Relief) 1 spray intranasal DAILY 30 days ibuprofen 400 mg PO Q8H PRN 30 days loratadine 10 mg PO DAILY 90 days lorazepam 0.5 mg PO DAILY PRN 5 days montelukast 10 mg PO DAILY 90 days phentermine 15 mg PO DAILY Tobacco use date assessed: 06/09/23 Dental Screening Dental Screen Date: 06/09/23 Did you have a dental visit in the last 12 months?: Yes Did you have a dental problem in the last 6 months where you did not have access to dental care?: No Was dental information given to patient?: Patient has dentist HPI 3 Month F/U HPI Details Patient is 28-year-old female came in today for her regular follow-up appointment Patient have iron-deficiency anemia, currently taking iron supplement Labs were done in April, we will repeat labs again in July, order placed Patient continued to have coughing and shortness a breath off and on She is currently on Symbicort 2 puffs b.i.d. And montelukast. She had another respiratory infection 3 weeks ago, after that symptoms got worse again I am adding prednisone 10 mg she is to take 1 tablet daily for 10 days and then half a tablet daily for 10 days I have also placed a referral to claim processing specialist for further evaluation [facility] Medical History HSV (herpes simplex virus) infection Adult BMI 45.0-49.9 kg/sq m Change in mole Prediabetes Elevated parathyroid hormone Elevated testosterone level Heavy menstrual bleeding Menometrorrhagia Hx of renal calculi Hx of constipation GERD (gastroesophageal reflux disease) Hx of iron deficiency History of asthma Surgical History History of vocal cord polypectomy Family History Father Diabetes mellitus Mother No problems noted. Brother No problems noted. Social History Housing: House Alcohol intake: never Patient Tobacco Use Status: Never used Tobacco e-Cigarette/Vaping Use: Never Used Second Hand Smoke Exposure: No service: No Current occupational status: employed Current occupation: [employer] in [employer]. Current occupational exposures/hazards: No Gender identity: Female Cognitive needs: No Hearing needs: No Vision needs: No Female Reproductive History Menstrual Age of Menarche: 9 Questionnaire PHQ-9 Over the last 2 weeks, how often have you been bothered by any of the following problems? 1. Little interest or pleasure in doing things: several days 2. Feeling down, depressed, or hopeless: more than half the days 3. Trouble falling or staying asleep, or sleeping too much: several days 4. Feeling tired or having little energy: more than half the days 5. Poor appetite or overeating: nearly every day 6. Feeling bad about yourself - or that you are a failure or have let yourself or your family down: nearly every day 7. Trouble concentrating on things, such as reading the newspaper or watching television: not at all 8. Moving or speaking so slowly that other people could have noticed. Or the opposite - being so fidgety or restless that you have been moving around a lot more than usual: several days 9. Thoughts that you would be better off or of hurting yourself in some way: not at all Total score: 13 Depression Screening Interpretation: Positive Depression Screening Follow-up: Existing condition and In treatment Depression Screening Done: Yes 30016 - PHQ-9 Billing: Yes Source: Developed by Drs. Maldonado L. Shannan Rivas Kurt Kroenke and colleagues, with an educational eugene from [employer]. Thrive Questionnaire Date Thrive assessed: 06/09/23 I am a: Patient What is your living situation today?: I have a steady place to live Within the past 12 months, did the food you bought not last and you didn't have the money to get more?: Often true Within the past 12 months, did you worry whether your food would run out before you got money to buy more?: Never true Do you have trouble paying for medicines?: No Do you have trouble getting transportation to medical appointments?: No Do you have trouble paying your heating and electricity bill?: No Do you have trouble taking care of your child, family member or friend?: No Do you have trouble with day-to-day activities such as bathing, preparing meals, shopping, managing finances, etc.?: No Are you currently unemployed and looking for a job?: No Are you interested in more education?: No Please select the resources that you would like help with: None Currently or been in a relationship where the following occur: no concerns reported THRIVE Score: 1 AUDIT C Alcohol Use Questionnaire (AUDIT-C) 1. How often do you have a drink containing alcohol?: Never 3. How often do you have six or more drinks on one occasion?: Never Total Score: 0 Score Reviewed/Action Taken: Yes SHERITA-7 AMB Questionnaire SHERITA-7 Date SHERITA - 7 assessed: 06/09/23 Feeling nervous, anxious, or on edge: 3 = Nearly every day Not being able to stop or control worryin = Nearly every day Worrying too much about different things: 3 = Nearly every day Trouble relaxin = More than half the days Being so restless that it is hard to sit still: 2 = More than half the days Becoming easily annoyed or irritable: 3 = Nearly every day Feeling afraid as if something awful might happen: 2 = More than half the days Total SHERITA-7 score (0-4 normal; 5-9 mild; 10-14 moderate; 15-21 severe): 18 Source: Developed by Shannan Kamara Kurt Kroenke and colleagues, with an educational eugene from [employer]. SHERITA-7 Assessment Billing SHERITA-7 Assessment Tool: SHERITA-7 Assessment 73322 Review of Systems Const Denies chills and Denies fever(s) ENT Denies epistaxis and Denies nasal discharge Card Denies chest pain Resp Denies chest congestion and Denies hemoptysis GI Denies diarrhea and Denies nausea Skin/Breast Denies rash Neuro Reports no additional complaints Psych Reports no additional complaints Endo Reports no additional complaints Physical exam (Primary Care) Vital Signs: Last Vital Signs Pulse 80 06/09/23 09:48 BP 124/76 06/09/23 09:48 Pulse Ox 96 06/09/23 09:48 Oxygen Delivery Method Room Air 06/09/23 09:48 BMI result Body Mass Index 52.8 Tobacco/Smoking Status: Tobacco use Status Tobacco use date assessed 06/09/23 06/09/23 09:55 Patient Tobacco Use Status Never used Tobacco 06/09/23 09:50 e-Cigarette/Vaping Use Never Used 06/09/23 09:50 PHQ-9: PHQ-9 Score PHQ-9: Total score 13 06/09/23 10:08 Depression Screening Interpretation: Positive Depression Screening Follow-up: Existing condition and In treatment Thrive Assessment: Date of Thrive Assessment Date Thrive assessed 06/09/23 06/09/23 09:55 Currently or been in a relationship where the following occur: no concerns reported Const General: cooperative, comfortable and no acute distress Orientation/consciousness: patient oriented x3 HENMT Head: Yes normocephalic Eyes General: appearance normal, both eyes and all related structures Neck Neck: Yes supple Resp Effort & Inspection: normal respiratory effort, no cough and no stridor Cardio Rhythm: regular rhythm Heart sounds: S1 normal heart sound present and S2 normal heart sound present Skin General skin exam: turgor normal Neuro General: patient oriented x3, tone normal and moves all extremities Extrem Right lower extremity: no edema Left lower extremity: no edema Assessment and Plan Assessment & Plan (1) Cough: Code(s): R05.9 - Cough, unspecified Qualifiers: Cough type: chronic Qualified Code(s): R05.3 - Chronic cough (2) Asthma exacerbation: Code(s): J45.901 - Unspecified asthma with (acute) exacerbation Qualifiers: Asthma persistence: persistent Asthma severity: moderate Qualified Code(s): J45.41 - Moderate persistent asthma with (acute) exacerbation (3) Iron deficiency anemia: Code(s): D50.9 - Iron deficiency anemia, unspecified Plan Patient is 28-year-old female came in today for her regular follow-up appointment Patient have iron-deficiency anemia, currently taking iron supplement Labs were done in April, we will repeat labs again in July, order placed Patient continued to have coughing and shortness a breath off and on She is currently on Symbicort 2 puffs b.i.d. And montelukast. She had another respiratory infection 3 weeks ago, after that symptoms got worse again I am adding prednisone 10 mg she is to take 1 tablet daily for 10 days and then half a tablet daily for 10 days I have also placed a referral to claim processing specialist for further evaluation Orders: Orders IRON PROFILE Today D50.9 - Iron deficiency anemia, unspecified Complete Blood Count Auto Diff Today D50.9 - Iron deficiency anemia, unspecified Ferritin Today D50.9 - Iron deficiency anemia, unspecified Referrals Pulmonary Medicine Referral J45.901 - Unspecified asthma with (acute) exacerbation, R05.9 - Cough, unspecified Medications: New 2 prednisone Full tablet daily for 10 days and then half a tablet daily for 10 days 15 tabs 0RF 20 days Discontinued phentermine must administer 2 hours after breakfast Discontinued Reason: Doctor's Order 15 mg PO DAILY 30 caps 0RF Coding Level of Care Code Est Pt Level 4 (43281) Diagnoses Chronic cough R05.3 Cough type: chronic Moderate persistent asthma with exacerbation J45.41 Asthma persistence: persistent Asthma severity: moderate Iron deficiency anemia D50.9 Additional Codes SHERITA-7 Assessment Billing - SHERITA-7 Assessment Tool: SHERITA-7 Assessment 74649 ([id number])
== END 2023-06-09 13:09 | disposition home or self-care (01) ==
PROVIDERS: PCP Internal Medicine; Visit Provider Internal Medicine
DX: R05.3 Chronic cough (principal); J45.41 Moderate persistent asthma with (acute) exacerbation; D50.9 Iron deficiency anemia, unspecified
CPT/HCPCS: 99214

== ENCOUNTER 2023-07-27 12:58 | Outpatient (AMB) | payer OTHER, SELFPAY ==
--- NOTE | 2023-07-27 12:59 | MHC.OFFWIV ---
Intake Vital Signs 07/27/23 13:06 Height 5 ft 5 in Weight 223 lb 4 oz BMI 37.1 BP 112/72 Blood Pressure Location Lt brachial Position Sitting Pulse 88 Pulse Source Pulse Oximeter Temp 97.7 F Temp Source Temporal Artery Scan Pulse Oximetry (%) 97 Oxygen Delivery Method Room Air Intake Visit Reasons: EP bladder pain Intake Note: pt is here today for bladder pain started 1 month ago Patient Tobacco Use Status: Never used Tobacco Allergies No Known Allergies [No Known Allergies*] Allergy (Verified 07/27/23 13:14) Medication List - Last Reconciled 07/27/23 by Aurea De León MD albuterol sulfate 90 mcg/actuation 2 puffs inhalation Q4-6H PRN albuterol sulfate 90 mcg/actuation (ProAir HFA) 1 inh inhalation QID PRN 30 days budesonide-formoterol 160-4.5 mcg/actuation (Symbicort) 2 puffs inhalation BID 30 days ergocalciferol (vitamin D2) 1,250 mcg PO QWEEK ferrous sulfate 324 mg PO BID 90 days fluticasone propionate 50 mcg/actuation (Flonase Allergy Relief) 1 spray intranasal DAILY 30 days ibuprofen 400 mg PO Q8H PRN 30 days loratadine 10 mg PO DAILY 90 days lorazepam 0.5 mg PO DAILY PRN 5 days montelukast 10 mg PO DAILY 90 days nitrofurantoin monohyd/m-cryst 100 mg (Macrobid) 100 mg PO Q12H 5 days Do you need a note to return to daycare/school/sports/work: No HPI EP bladder pain HPI Details Patient is 28-year-old female came in today to be evaluated for possible bladder infection Patient says that she is having these symptoms since 13 of July, she went to an urgent Care in [place] At that time patient did not had any signs of infection in her urine, test was negative, her last menstrual period was end of May Patient says that she got a call from urgent care 2 days later stating that she is growing Streptococcus in her urine and Augmentin was sent Patient says that she is some how misplaced the medication never took it Her symptoms continued so she came in UA done today shows 3+ blood I have sent Macrobid to be taken b.i.d. for 5 days for the patient And we will also send culture Review system she has no fever no chills no nausea vomiting diarrhea No mid back pain. [facility] Medical History HSV (herpes simplex virus) infection Adult BMI 45.0-49.9 kg/sq m Change in mole Prediabetes Elevated parathyroid hormone Elevated testosterone level Heavy menstrual bleeding Menometrorrhagia Hx of renal calculi Hx of constipation GERD (gastroesophageal reflux disease) Hx of iron deficiency History of asthma Surgical History History of vocal cord polypectomy Family History Father Diabetes mellitus Mother No problems noted. Brother No problems noted. Social History Housing: House Alcohol intake: never Patient Tobacco Use Status: Never used Tobacco e-Cigarette/Vaping Use: Never Used Second Hand Smoke Exposure: No service: No Current occupational status: employed Current occupation: [employer]. Current occupational exposures/hazards: No Gender identity: Female Cognitive needs: No Hearing needs: No Vision needs: No Female Reproductive History Menstrual Age of Menarche: 9 Review of Systems Const All systems reviewed & are unremarkable except as noted in HPI and below Physical Exam Vital Signs: Last Vital Signs Temp 97.7 F 07/27/23 13:06 Pulse 88 07/27/23 13:06 BP 112/72 07/27/23 13:06 Pulse Ox 97 07/27/23 13:06 Oxygen Delivery Method Room Air 07/27/23 13:06 BMI result Body Mass Index 37.1 Const General: no acute distress Orientation/consciousness: patient oriented x3 Eyes General: appearance normal, both eyes and all related structures Resp Effort & Inspection: normal respiratory effort and able to speak in complete sentences Neuro General: patient oriented x3 Psych Mental Status: mental status grossly normal Results AMB Urinalysis, Automated UA Leukoctes 0 Jessica/uL Last Edit by Ivelisse Canas MA on 07/27/23 13:33 UA Nitrite Negative Last Edit by Ivelisse Canas MA on 07/27/23 13:33 UA Urobilinogen 0.2 mg/dL Last Edit by Ivelisse Canas MA on 07/27/23 13:33 UA Protein 0 mg/dL Last Edit by Ivelisse Canas MA on 07/27/23 13:33 UA pH 6.0 Last Edit by Ivelisse Canas MA on 07/27/23 13:33 UA Blood 200 Pavel/uL Last Edit by Ivelisse Canas MA on 07/27/23 13:33 UA Specific [place] 1.020 Last Edit by Ivelisse Canas MA on 07/27/23 13:33 UA Ketone Negative Last Edit by Ivelisse Canas MA on 07/27/23 13:33 UA Bilirubin 0 mg/dL Last Edit by Ivelisse Canas MA on 07/27/23 13:33 UA Glucose 0 mg/dL Last Edit by Ivelisse Canas MA on 07/27/23 13:33 Results Reviewed Results Reviewed: Laboratory Last Values Urine pH (Auto) 6.0 07/27/23 13:27 Specific [place] (Auto) 1.020 07/27/23 13:27 Urine Protein (Auto) 0 mg/dL 07/27/23 13:27 Glucose (UA)(Auto) 0 mg/dL 07/27/23 13:27 Urine Ketones (Auto) Negative 07/27/23 13:27 Urine Blood (Auto) 200 Pavel/uL 07/27/23 13:27 Urine Nitrite (Auto) Negative 07/27/23 13:27 Urine Bilirubin (Auto) 0 mg/dL 07/27/23 13:27 Urine Urobilinogen (Auto) 0.2 mg/dL 07/27/23 13:27 Leukocyte Esterase (Auto) 0 Jessica/uL 07/27/23 13:27 Assessment & Plan Assessment & Plan (1) Blood in urine: Code(s): R31.9 - Hematuria, unspecified Qualifiers: Hematuria type: gross Qualified Code(s): R31.0 - Gross hematuria (2) Suprapubic abdominal pain: Code(s): R10.2 - Pelvic and perineal pain Plan Patient is 28-year-old female came in today to be evaluated for possible bladder infection Patient says that she is having these symptoms since 13 of July, she went to an urgent Care in [place] At that time patient did not had any signs of infection in her urine, test was negative, her last menstrual period was end of May Patient says that she got a call from urgent care 2 days later stating that she is growing Streptococcus in her urine and Augmentin was sent Patient says that she is some how misplaced the medication never took it Her symptoms continued so she came in UA done today shows 3+ blood I have sent Macrobid to be taken b.i.d. for 5 days for the patient And we will also send culture Review system she has no fever no chills no nausea vomiting diarrhea No mid back pain. Orders: Orders Urine Culture Today R10.2 - Pelvic and perineal pain, R31.9 - Hematuria, unspecified Medications: New nitrofurantoin monohyd/m-cryst 100 mg (Macrobid) must administer with a meal/food 100 mg PO Q12H 10 caps 0RF 5 days Coding Level of Care Code Est Pt Level 3 (23190) Diagnoses Gross hematuria R31.0 Hematuria type: gross Suprapubic abdominal pain R10.2
[2023-07-27 13:06] VITALS: BP 112/72; PULSE 88; TEMP 36.5; O2SAT 97; BMI 37.1
== END 2023-07-27 13:50 | disposition home or self-care (01) ==
PROVIDERS: PCP Internal Medicine; Visit Provider Internal Medicine
DX: R31.0 Gross hematuria (principal); R10.2 Pelvic and perineal pain
CPT/HCPCS: 99213

== ENCOUNTER 2023-07-27 19:53 | Outpatient (REF) | payer OTHER, SELFPAY | END 2023-07-27 19:54 | disposition home or self-care (01) | LOC: HO.LNP 19:53 | PROVIDERS: Visit Provider Internal Medicine | DX: R31.9 Hematuria, unspecified (principal); R10.2 Pelvic and perineal pain | CPT/HCPCS: 87086; 87147 ==

== ENCOUNTER 2023-08-05 08:35 | Outpatient (AMB) | payer OTHER, SELFPAY ==
--- NOTE | 2023-08-05 09:39 | MHC.PC.OV ---
Intake Visit Reasons: Discuss Results~ [phone] Allergies No Known Allergies [No Known Allergies*] Allergy (Verified 07/27/23 13:14) Medication List - Last Reconciled 08/05/23 by Aurea De León MD albuterol sulfate 90 mcg/actuation 2 puffs inhalation Q4-6H PRN albuterol sulfate 90 mcg/actuation (ProAir HFA) 1 inh inhalation QID PRN 30 days budesonide-formoterol 160-4.5 mcg/actuation (Symbicort) 2 puffs inhalation BID 30 days ergocalciferol (vitamin D2) 1,250 mcg PO QWEEK ferrous sulfate 324 mg PO BID 90 days fluticasone propionate 50 mcg/actuation (Flonase Allergy Relief) 1 spray intranasal DAILY 30 days ibuprofen 400 mg PO Q8H PRN 30 days loratadine 10 mg PO DAILY 90 days lorazepam 0.5 mg PO DAILY PRN 5 days montelukast 10 mg PO DAILY 90 days nitrofurantoin monohyd/m-cryst 100 mg (Macrobid) 100 mg PO Q12H 5 days Tobacco use date assessed: 06/09/23 Dental Screening Dental Screen Date: 06/09/23 HPI Discuss Results~ [phone] HPI Details Patient was seen in walk in clinic early this month when she presented for evaluation she wanted to make sure she dont have UTI she was having some discomfort pelvic area and noticing blood when wipe herself she was also about to start her monthly cycle UA was taking Cx was sent at that time and she was given Macrobid for 5 days Cx grew strep agalactiae explain to patient that most likely it was a contaminated specimen she would like to repeat UA after she is done with her cycle UA order placed [facility] Medical History HSV (herpes simplex virus) infection Adult BMI 45.0-49.9 kg/sq m Change in mole Prediabetes Elevated parathyroid hormone Elevated testosterone level Heavy menstrual bleeding Menometrorrhagia Hx of renal calculi Hx of constipation GERD (gastroesophageal reflux disease) Hx of iron deficiency History of asthma Surgical History History of vocal cord polypectomy Family History Father Diabetes mellitus Mother No problems noted. Brother No problems noted. Social History Housing: House Alcohol intake: never Patient Tobacco Use Status: Never used Tobacco e-Cigarette/Vaping Use: Never Used Second Hand Smoke Exposure: No service: No Current occupational status: employed Current occupation: [employer] in [employer]. Current occupational exposures/hazards: No Gender identity: Female Cognitive needs: No Hearing needs: No Vision needs: No Female Reproductive History Menstrual Age of Menarche: 9 Questionnaire Thrive Questionnaire Date Thrive assessed: 06/09/23 SHERITA-7 AMB Questionnaire SHERITA-7 Date SHERITA - 7 assessed: 06/09/23 Source: Developed by Drs. Maldonado Rivas, Shannan Ramos, Britton Gunn and colleagues, with an educational eugene from [employer]. Review of Systems Const Denies chills and Denies fever(s) ENT Denies epistaxis and Denies nasal discharge Card Denies chest pain Resp Denies chest congestion, Denies cough and Denies hemoptysis GI Denies diarrhea and Denies nausea Skin/Breast Denies rash Neuro Reports no additional complaints Psych Reports no additional complaints Endo Reports no additional complaints Physical exam (Primary Care) Tobacco/Smoking Status: Tobacco use Status Tobacco use date assessed 06/09/23 08/05/23 09:39 Patient Tobacco Use Status Never used Tobacco 08/05/23 09:39 e-Cigarette/Vaping Use Never Used 08/05/23 09:39 Thrive Assessment: Date of Thrive Assessment Date Thrive assessed 06/09/23 08/05/23 09:39 Telehealth Telehealth Telehealth Platform: [employer] Location of provider rendering services: practice address Location of patient: address on file Patient Identification confirmed using: Name, : Yes Telehealth method: video (attempted) Patient verbally consented to treatment: Yes Patient verbally consented to billing insurance company: Yes Patient informed of any privacy concerns related to visit: Yes Minutes spent on Phone/Video with Pt.: 13 Assessment and Plan Assessment & Plan (1) Blood in urine: Code(s): R31.9 - Hematuria, unspecified Qualifiers: Hematuria type: gross Qualified Code(s): R31.0 - Gross hematuria Plan Patient was seen in walk in clinic early this month when she presented for evaluation she wanted to make sure she dont have UTI she was having some discomfort pelvic area and noticing blood when wipe herself she was also about to start her monthly cycle UA was taking Cx was sent at that time and she was given Macrobid for 5 days Cx grew strep agalactiae explain to patient that most likely it was a contaminated specimen she would like to repeat UA after she is done with her cycle UA order placed Orders: Orders UA CC w/rflx Micro + Cult Today R31.0 - Gross hematuria Coding Level of Care Code Tele Est Pt Level 3 (89488) Diagnoses Gross hematuria R31.0 Hematuria type: gross
== END 2023-08-05 10:46 | disposition home or self-care (01) ==
LOC: HO.HMGC 08:35
PROVIDERS: PCP Internal Medicine; Visit Provider Internal Medicine
DX: R31.0 Gross hematuria (principal)
CPT/HCPCS: 99213

== ENCOUNTER 2023-08-09 08:12 | Outpatient (AMB) | payer OTHER, SELFPAY ==
[2023-08-09 08:18] VITALS: BP 110/72; BMI 37.0
--- NOTE | 2023-08-09 08:18 | A.OFFVIS_ITS ---
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 Complaining of bilateral lower pain started few weeks ago. It's intermittent in nature lasting few seconds and occurs 3x/day. it is not associated with any constipation, no dysuria, or frequency or incontinence, no n/v, no feverishness or chills. Last Pap smear was negative in 06/09 [facility] Medical History HSV (herpes simplex virus) infection Adult BMI 45.0-49.9 kg/sq m Change in mole Prediabetes Elevated parathyroid hormone Elevated testosterone level Heavy menstrual bleeding Menometrorrhagia Hx of renal calculi Hx of constipation GERD (gastroesophageal reflux disease) Hx of iron deficiency History of asthma Surgical History History of vocal cord polypectomy Family History Father Diabetes mellitus Mother No problems noted. Brother No problems noted. Social History Household Members: Spouse Housing: House Alcohol intake: never Patient Tobacco Use Status: Never used Tobacco e-Cigarette/Vaping Use: Never Used Second Hand Smoke Exposure: No service: No Current occupational status: employed Current occupation: [employer] in [employer]. Current occupational exposures/hazards: No Sexually active: Yes Sexual orientation: Straight/Heterosexual Gender identity: Female Cognitive needs: No Hearing needs: No Vision needs: No Female Reproductive History Menstrual Age of Menarche: 9 Total pregnancies: 0 Review of Systems Const All systems reviewed & are unremarkable except as noted in HPI and below Card Reports as per HPI Resp Reports as per HPI GI Reports as per HPI and Reports no additional complaints Reports as per HPI Physical Exam Vital Signs: Last Vital Signs BP 110/72 08/09/23 08:18 BMI result Body Mass Index 37.0 Const General: cooperative, healthy appearing and comfortable Chest Chest palpation & inspection: normal inspection of the chest and normal palpation of entire chest wall Breast/axilla inspection: normal inspection of the breasts and normal inspection of the axillae Breast/axilla palpation: normal palpation of the breasts, normal palpation of the axillae and no axillary lymphadenopathy Resp Effort & Inspection: normal respiratory effort Auscultation: clear to auscultation bilaterally Percussion: percussion normal Cardio Palpation: normal PMI Rate: regular rate Rhythm: regular rhythm Heart sounds: no murmurs and no rubs Peripheral pulses: Peripheral pulses 2+ throughout GI Inspection: Yes normal to inspection Palpation (GI): Soft to palpation, nontender, no guarding, not rigid and No hepatosplenomegaly present Percussion: Yes normal to percussion Auscultation: normal bowel sounds Rectal Exam - Female: deferred General: Yes bladder normal to palpation External Female Exam: No lesion Speculum Exam - Vagina: normal appearance of the vagina, normal palpation, normal vaginal discharge and not erythematous Speculum Exam - Cervix: normal appearance of the cervix and normal palpation Bimanual exam- vagina & uterus: normal bimanual exam, normal palpation, uterine size normal, bladder normal to palpation, consistency normal and normal palpation Bimanual Exam- Adnexa, other: normal adnexae, no masses and no tenderness Results AMB Test Urine AMB Test Urine Negative Last Edit by Raissa Bates CMA on 08:43 Assessment & Plan Assessment & Plan (1) Well woman exam: Code(s): Z01.419 - Encounter for gynecological examination (general) (routine) without abnormal findings Category: Medical Plan: Cotesting done. Counseled the patient about the recommended dietary allowance of 1000 mg of Calcium & 600 IU of vitamin D. The patient was instructed to perform monthly self-breast exams and to schedule an annual exam in a year; All questions answered and the patient verbalized understanding. Instructed the patient to schedule annual exam in a year (2) Pelvic pain: Code(s): R10.2 - Pelvic and perineal pain Category: Medical Plan: Urine test done in the office was negative. GC and chlamydia taken and pelvic ultrasound ordered. Discussed with the patient the differential diagnosis of pelvic pain including but not limited to adnexal, uterine masses, pelvic infections (PID), GI the (Irritable bowel syndrome, diverticulitis, others), musculoskeletal, myofascial pain abdominal wall , adhesions, endometriosis, psychological and others causes. Will check results and treat accordingly. All questions answered, the patient verbalized understanding. Instructed the patient to schedule follow-up appointment in 2 weeks (3) Microscopic hematuria: Code(s): R31.29 - Other microscopic hematuria Category: Medical Plan: Urine dip showed microscopic hematuria, urine culture sent. Will repeat urine dip in 2 weeks. Discussed with the patient the possible causes of microscopic hematuria including but not limited to: interstitial cystitis, polyps, stones, masses, urethral inflammatory processes and others. If Urine Culture is negative and repeat urine dip in 2 weeks shows persistent microscopic hematuria, will proceed with CT abdomen/pelvis and urology referral. Instructions given the patient to schedule a 2 week urine dip follow-up appointment. All questions answered and the patient verbalized understanding. Orders: Orders US pelvic and transvaginal Today R10.2 - Pelvic and perineal pain Coding Level of Care Code Est Pt Prev Care 18-39y([id number]) Diagnoses Well woman exam Z01.419 Pelvic pain R10.2 Microscopic hematuria R31.29
== END 2023-08-09 09:24 | disposition home or self-care (01) ==
LOC: HO.HWS 08:12
PROVIDERS: PCP Internal Medicine; Visit Provider Obstetrics & Gynecology
DX: Z01.419 Encounter for gynecological examination (general) (routine) without abnormal findings (principal); R10.2 Pelvic and perineal pain; R31.29 Other microscopic hematuria; Z32.02 Encounter for pregnancy test, result negative
CPT/HCPCS: 99395

== ENCOUNTER 2023-08-09 08:12 | Outpatient (REF) | payer OTHER, SELFPAY ==
[2023-08-09 13:50] LABS: CT PCR NOT DETECTED (Not Detect.); NG PCR NOT DETECTED (Not Detect.)
[2023-08-13 03:14] LABS: HPV mRNA E6/E7 rflx Not Detected (Not Detected)
== END 2023-08-09 08:13 | disposition home or self-care (01) ==
LOC: HO.LNP 08:12
PROVIDERS: PCP Internal Medicine; Visit Provider Obstetrics & Gynecology
DX: Z01.419 Encounter for gynecological examination (general) (routine) without abnormal findings (principal); Z11.51 Encounter for screening for human papillomavirus (HPV); R10.2 Pelvic and perineal pain; R31.29 Other microscopic hematuria
CPT/HCPCS: 0353U; 81002; 81025; 87086; 87624; 88142

== ENCOUNTER 2023-09-24 08:52 | Outpatient (AMB) | payer OTHER, SELFPAY ==
--- NOTE | 2023-09-24 09:51 | A.OFFPC_ITS ---
Vital Signs 09/24/23 09:52 Height 5 ft 5 in Weight 313 lb BMI 52.1 BP 126/78 Blood Pressure Location Rt brachial Position Sitting Pulse 57 Pulse Source Pulse Oximeter Pulse Oximetry (%) 98 Oxygen Delivery Method Room Air Intake Visit Reasons: Weight loss medication/Migraine Allergies No Known Allergies [No Known Allergies*] Allergy (Verified 09/24/23 09:52) Medication List - Last Reconciled 09/24/23 by Aurea De León MD albuterol sulfate 90 mcg/actuation 2 puffs inhalation Q4-6H PRN albuterol sulfate 90 mcg/actuation (ProAir HFA) 1 inh inhalation QID PRN 30 days budesonide-formoterol 160-4.5 mcg/actuation (Symbicort) 2 puffs inhalation BID 30 days ergocalciferol (vitamin D2) 1,250 mcg PO QWEEK ferrous sulfate 324 mg PO BID 90 days fluticasone propionate 50 mcg/actuation (Flonase Allergy Relief) 1 spray intranasal DAILY 30 days ibuprofen 400 mg PO Q8H PRN 30 days loratadine 10 mg PO DAILY 90 days lorazepam 0.5 mg PO DAILY PRN 5 days montelukast 10 mg PO DAILY 90 days Tobacco use date assessed: 06/09/23 Dental Screening Dental Screen Date: 06/09/23 HPI Weight loss medication/Migraine HPI Details Patient is 28-year-old female Came in today to talk about headache that is not getting better for the past 3 days Patient says that only thing that helps is Excedrin She is sleeping fine she uses sleep PAP machine She is also established with weight loss program [facility] and is seeing Dr. Marie I have told her that if she would like to continue phentermine she should have Dr. Rei paulson fill it Patient is following up with once a month For her headache I have ordered sumatriptan 50 mg that she may take only once a day at the onset of headache She is also due for labs Patient is iron deficient anemic And continued to have heavy flow Patient says that she does not want to take control and she is reluctant to place IUD We had a detailed discussion about that today We will see what her hemoglobin is and we will set up a telephone visit to go over lab reports [facility] Medical History HSV (herpes simplex virus) infection Adult BMI 45.0-49.9 kg/sq m Change in mole Prediabetes Elevated parathyroid hormone Elevated testosterone level Heavy menstrual bleeding Menometrorrhagia Hx of renal calculi Hx of constipation GERD (gastroesophageal reflux disease) Hx of iron deficiency History of asthma Surgical History History of vocal cord polypectomy Family History Father Diabetes mellitus Mother No problems noted. Brother No problems noted. Social History Household Members: Spouse Housing: House Alcohol intake: never Patient Tobacco Use Status: Never used Tobacco e-Cigarette/Vaping Use: Never Used Second Hand Smoke Exposure: No service: No Current occupational status: employed Current occupation: [employer] in [employer]. Current occupational exposures/hazards: No Sexual orientation: Straight/Heterosexual Gender identity: Female Cognitive needs: No Hearing needs: No Vision needs: No Female Reproductive History Menstrual Age of Menarche: 9 Questionnaire Thrive Questionnaire Date Thrive assessed: 06/09/23 SHERITA-7 AMB Questionnaire SHERITA-7 Date SHERITA - 7 assessed: 06/09/23 Source: Developed by Drs. Maldonado Rivas, Shannan Ramos, Britton Gunn and colleagues, with an educational eugene from [employer]. Review of Systems Const Denies chills and Denies fever(s) ENT Denies epistaxis and Denies nasal discharge Card Denies chest pain Resp Denies chest congestion, Denies cough and Denies hemoptysis GI Denies diarrhea and Denies nausea Skin/Breast Denies rash Neuro Reports no additional complaints Psych Reports no additional complaints Endo Reports no additional complaints Physical exam (Primary Care) Vital Signs: Last Vital Signs Pulse 57 09/24/23 09:52 BP 126/78 09/24/23 09:52 Pulse Ox 98 09/24/23 09:52 Oxygen Delivery Method Room Air 09/24/23 09:52 BMI result Body Mass Index 52.1 Tobacco/Smoking Status: Tobacco use Status Tobacco use date assessed 06/09/23 09/24/23 09:54 Patient Tobacco Use Status Never used Tobacco 09/24/23 09:54 e-Cigarette/Vaping Use Never Used 09/24/23 09:54 Thrive Assessment: Date of Thrive Assessment Date Thrive assessed 06/09/23 09/24/23 09:54 Const General: cooperative, comfortable and no acute distress Orientation/consciousness: patient oriented x3 HENMT Head: Yes normocephalic Eyes General: appearance normal, both eyes and all related structures Neck Neck: Yes supple Resp Effort & Inspection: normal respiratory effort, no cough and no stridor Cardio Rhythm: regular rhythm Heart sounds: S1 normal heart sound present and S2 normal heart sound present Skin General skin exam: turgor normal Neuro General: patient oriented x3, tone normal and moves all extremities Extrem Right lower extremity: no edema Left lower extremity: no edema Assessment and Plan Assessment & Plan (1) Headache syndrome: Code(s): G44.89 - Other headache syndrome (2) Iron deficiency anemia: Code(s): D50.9 - Iron deficiency anemia, unspecified Qualifiers: Iron deficiency anemia type: chronic blood loss Qualified Code(s): D50.0 - Iron deficiency anemia secondary to blood loss (chronic) (3) Heavy menstrual bleeding: Code(s): N92.0 - Excessive and frequent menstruation with regular cycle Qualifiers: Menorrhagia type: with regular cycle Qualified Code(s): N92.0 - Excessive and frequent menstruation with regular cycle (4) Prediabetes: Code(s): R73.03 - Prediabetes (5) Morbid obesity: Onset Date: Unknown Code(s): E66.01 - Morbid (severe) obesity due to excess calories (6) Vitamin D deficiency: Code(s): E55.9 - Vitamin D deficiency, unspecified (7) B12 deficiency: Code(s): E53.8 - Deficiency of other specified B group vitamins (8) Asthma, moderate: Code(s): J45.909 - Unspecified asthma, uncomplicated Qualifiers: Asthma complication type: uncomplicated Asthma persistence: persistent Qualified Code(s): J45.40 - Moderate persistent asthma, uncomplicated (9) Hyperparathyroidism: Code(s): E21.3 - Hyperparathyroidism, unspecified (10) Environmental allergies: Code(s): Z91.09 - Other allergy status, other than to drugs and biological substances Plan Patient is 28-year-old female Came in today to talk about headache that is not getting better for the past 3 days Patient says that only thing that helps is Excedrin She is sleeping fine she uses sleep PAP machine She is also established with weight loss program [facility] and is seeing Dr. Marie I have told her that if she would like to continue phentermine she should have Dr. Minaya balance fill it Patient is following up with once a month For her headache I have ordered sumatriptan 50 mg that she may take only once a day at the onset of headache She is also due for labs Patient is iron deficient anemic And continued to have heavy flow Patient says that she does not want to take control and she is reluctant to place IUD We had a detailed discussion about that today We will see what her hemoglobin is and we will set up a telephone visit to go over lab reports Other medical problems reviewed, asthma is stable allergy is stable and anxiety stable Orders: Orders Comprehensive Met. Panel Today D50.9 - Iron deficiency anemia, unspecified, E21.3 - Hyperparathyroidism, unspecified, E53.8 - Deficiency of other specified B group vitamins, E55.9 - Vitamin D deficiency, unspecified, E66.01 - Morbid (severe) obesity due to excess calories, G44.89 - Other headache syndrome, J45.40 - Moderate persistent asthma, uncomplicated, N92.0 - Excessive and frequent menstruation with regular cycle, R73.03 - Prediabetes, Z91.09 - Other allergy status, other than to drugs and biological substances IRON PROFILE Today D50.9 - Iron deficiency anemia, unspecified, E21.3 - Hyperparathyroidism, unspecified, E53.8 - Deficiency of other specified B group vitamins, E55.9 - Vitamin D deficiency, unspecified, E66.01 - Morbid (severe) obesity due to excess calories, G44.89 - Other headache syndrome, J45.40 - Moderate persistent asthma, uncomplicated, N92.0 - Excessive and frequent menstruation with regular cycle, R73.03 - Prediabetes, Z91.09 - Other allergy status, other than to drugs and biological substances TSH reflex Free T4 Today D50.9 - Iron deficiency anemia, unspecified, E21.3 - Hyperparathyroidism, unspecified, E53.8 - Deficiency of other specified B group vitamins, E55.9 - Vitamin D deficiency, unspecified, E66.01 - Morbid (severe) obesity due to excess calories, G44.89 - Other headache syndrome, J45.40 - Moderate persistent asthma, uncomplicated, N92.0 - Excessive and frequent menstruation with regular cycle, R73.03 - Prediabetes, Z91.09 - Other allergy status, other than to drugs and biological substances LDL Cholesterol Direct Today D50.9 - Iron deficiency anemia, unspecified, E21.3 - Hyperparathyroidism, unspecified, E53.8 - Deficiency of other specified B group vitamins, E55.9 - Vitamin D deficiency, unspecified, E66.01 - Morbid (severe) obesity due to excess calories, G44.89 - Other headache syndrome, J45.40 - Moderate persistent asthma, uncomplicated, N92.0 - Excessive and frequent menstruation with regular cycle, R73.03 - Prediabetes, Z91.09 - Other allergy status, other than to drugs and biological substances Complete Blood Count Auto Diff Today D50.9 - Iron deficiency anemia, unspecified, E21.3 - Hyperparathyroidism, unspecified, E53.8 - Deficiency of other specified B group vitamins, E55.9 - Vitamin D deficiency, unspecified, E66.01 - Morbid (severe) obesity due to excess calories, G44.89 - Other headache syndrome, J45.40 - Moderate persistent asthma, uncomplicated, N92.0 - Excessive and frequent menstruation with regular cycle, R73.03 - Prediabetes, Z91.09 - Other allergy status, other than to drugs and biological substances Ferritin Today D50.9 - Iron deficiency anemia, unspecified, E21.3 - Hyperparathyroidism, unspecified, E53.8 - Deficiency of other specified B group vitamins, E55.9 - Vitamin D deficiency, unspecified, E66.01 - Morbid (severe) obesity due to excess calories, G44.89 - Other headache syndrome, J45.40 - Moderate persistent asthma, uncomplicated, N92.0 - Excessive and frequent menstruation with regular cycle, R73.03 - Prediabetes, Z91.09 - Other allergy status, other than to drugs and biological substances Vitamin B12 Today D50.9 - Iron deficiency anemia, unspecified, E21.3 - Hyperparathyroidism, unspecified, E53.8 - Deficiency of other specified B group vitamins, E55.9 - Vitamin D deficiency, unspecified, E66.01 - Morbid (severe) obesity due to excess calories, G44.89 - Other headache syndrome, J45.40 - Moderate persistent asthma, uncomplicated, N92.0 - Excessive and frequent m enstruation with regular cycle, R73.03 - Prediabetes, Z91.09 - Other allergy status, other than to drugs and biological substances Vitamin D 25-OH (D2 and D3) Today D50.9 - Iron deficiency anemia, unspecified, E21.3 - Hyperparathyroidism, unspecified, E53.8 - Deficiency of other specified B group vitamins, E55.9 - Vitamin D deficiency, unspecified, E66.01 - Morbid (severe) obesity due to excess calories, G44.89 - Other headache syndrome, J45.40 - Moderate persistent asthma, uncomplicated, N92.0 - Excessive and frequent menstruation with regular cycle, R73.03 - Prediabetes, Z91.09 - Other allergy status, other than to drugs and biological substances Hemoglobin A1c Today R73.03 - Prediabetes Medications: New sumatriptan succinate 50 mg PO ONCE 10 days PRN 7 tabs 0RF migraine headache Coding Level of Care Code Est Pt Level 4 (29224) Diagnoses Headache syndrome G44.89 Iron deficiency anemia due to chronic blood loss D50.0 Iron deficiency anemia type: chronic blood loss Menorrhagia with regular cycle N92.0 Menorrhagia type: with regular cycle Prediabetes R73.03 Morbid obesity E66.01 Vitamin D deficiency E55.9 B12 deficiency E53.8 Moderate persistent asthma without complication J45.40 Asthma complication type: uncomplicated Asthma persistence: persistent Hyperparathyroidism E21.3 Environmental allergies Z91.09
[2023-09-24 09:52] VITALS: BP 126/78; PULSE 57; O2SAT 98; BMI 52.1
== END 2023-09-24 10:34 | disposition home or self-care (01) ==
PROVIDERS: PCP Internal Medicine; Visit Provider Internal Medicine
DX: G44.89 Other headache syndrome (principal); E66.01 Morbid (severe) obesity due to excess calories; E21.3 Hyperparathyroidism, unspecified; Z68.43 Body mass index [BMI] 50.0-59.9, adult; D50.0 Iron deficiency anemia secondary to blood loss (chronic); N92.0 Excessive and frequent menstruation with regular cycle; R73.03 Prediabetes; E55.9 Vitamin D deficiency, unspecified; E53.8 Deficiency of other specified B group vitamins; J45.40 Moderate persistent asthma, uncomplicated; Z91.09 Other allergy status, other than to drugs and biological substances
CPT/HCPCS: 99214

== ENCOUNTER 2023-09-24 10:28 | Outpatient (REF) | payer OTHER, SELFPAY ==
[2023-09-24 13:19] LABS: MANUAL DIFF FLAG NO
[2023-09-24 13:48] LABS: Basophils Absolute Auto 0.1 X10*3/uL (0.0-0.2); Basophils Percent Auto 0.6 % (0-2); Eosinophils Absolute Auto 0.2 X10*3/uL (0.0-0.4); Eosinophils Percent Auto 2.3 % (0-4); Hematocrit 34.9 % (37.0-47.0); Hemoglobin 10.4 g/dl (12.0-16.0); Imm Gran Abs Auto 0.03 X10*3/uL (0.00-0.03); Imm Gran Pct Auto 0.4 % (0.0-0.4); Lymphocytes Absolute Auto 2.8 X10*3/uL (1.2-4.9); Mean Corpuscular HGB Conc 29.8 g/dl (31.0-35.0); Mean Platelet Volume 10.4 fL (9.4-12.3); Monocytes Absolute Auto 0.8 X10*3/uL (0.1-1.2); Neutrophils Absolute Auto 4.6 x10*3/uL (2.0-8.3); Neutrophils Percent Auto 54.7 % (45-73); Platelet Count 373 X10*3/uL (160-400); Red Blood Count 4.53 X10*6/uL (4.20-5.50); White Blood Count 8.4 X10*3/uL (4.8-10.8)
[2023-09-24 13:49] LABS: Alanine Aminotransferase 24 U/L (0-31); Albumin Level 3.7 g/dL (3.5-5.0); Alkaline Phosphatase 106 U/L (39-117); Anion Gap 10 (12-20); Aspartate Amino Transferase 18 U/L (5-31); Bilirubin Total 0.2 mg/dL (0.0-1.0); Blood Urea Nitrogen 8 mg/dL (9-16); Calcium 9.4 mg/dL (8.4-10.2); Carbon Dioxide 27 mmol/L (22-29); Chloride 106 mmol/L (96-108); Estimated Glomerular Filt Rate > 60; Glucose Random 84 mg/dL (60-115); Iron 25 mcg/dL (30-160); Percent Iron Saturation 9 % (15-50); Potassium 3.7 mmol/L (3.3-5.1); Sodium 139 mmol/L (135-145); Total Iron Binding Capacity 289 mcg/dL (228-428); Unsaturated Iron Binding 264 ug/dL
[2023-09-24 13:56] LABS: Ferritin 21 ng/mL (10-122); TSH reflex Free T4 1.08 uIU/mL (0.32-4.0)
[2023-09-24 14:04] LABS: Vitamin B12 437 pg/mL (200-900)
[2023-09-26 10:24] LABS: LDL Cholesterol Direct 71 mg/dL (<100)
[2023-09-28 12:38] LABS: Vitamin D 25-OH, D2 5 ng/mL; Vitamin D 25-OH, D3 6 ng/mL; Vitamin D 25-OH, Total 11 ng/mL (30-100)
== END 2023-09-24 10:29 | disposition home or self-care (01) ==
LOC: HO.HMGCLDS 10:28
PROVIDERS: PCP Internal Medicine; Visit Provider Internal Medicine
DX: N92.0 Excessive and frequent menstruation with regular cycle (principal); R73.03 Prediabetes; E66.01 Morbid (severe) obesity due to excess calories; E55.9 Vitamin D deficiency, unspecified; D50.9 Iron deficiency anemia, unspecified; E53.8 Deficiency of other specified B group vitamins; J45.40 Moderate persistent asthma, uncomplicated; E21.3 Hyperparathyroidism, unspecified; Z91.09 Other allergy status, other than to drugs and biological substances; G44.89 Other headache syndrome
CPT/HCPCS: 36415; 80053; 82306; 82607; 82728; 83540; 83721; 84443; 85025

== ENCOUNTER 2023-11-12 12:12 | Outpatient (REF) | payer OTHER, SELFPAY ==
--- NOTE | ~2023-11-12 | US_ITS ---
EXAMINATION: US PELVIS CLINICAL INFORMATION: Pelvic and perineal pain, last menstrual period September 2023. COMPARISON: None available. TECHNIQUE: Ultrasound of the pelvis is performed using both transabdominal and transvaginal transducers along with Doppler. Transvaginal imaging is performed due to inadequate visualization transabdominally. FINDINGS: The uterus is anteverted and measures 11.9 x 4.2 x 4.8 cm. Endometrial thickness is 11 mm. Trace amount of free fluid. Right ovary measures 3.5 x 2.1 x 2.5 cm, volume 9.6 mL. Left ovary measures 2.6 x 3.0 x 3.0 cm, volume 12.2 mL. Bilateral ovaries are grossly unremarkable. US/US pelvic and transvaginal IMPRESSION: 1. Endometrial thickness is 11 mm. 2. Trace amount of free fluid. 3. Bilateral ovaries are grossly unremarkable. Electronically signed by: Amie Garrett MD 11/24/2023 10:23 AM EDT
== END 2023-11-12 12:13 | disposition home or self-care (01) ==
LOC: HO.US 12:12
PROVIDERS: PCP Internal Medicine; Visit Provider Obstetrics & Gynecology
DX: R10.2 Pelvic and perineal pain (principal)
CPT/HCPCS: 76830; 76856

== ENCOUNTER 2023-12-30 14:28 | Outpatient (AMB) | payer OTHER, SELFPAY ==
--- NOTE | 2023-12-30 14:28 | A.OFFVIS_ITS ---
Intake Visit Reasons: US follow up Allergies No Known Allergies [No Known Allergies*] Allergy (Verified 09/24/23 09:52) HPI Comments Details: The patient is scheduled a telehealth visit for follow-up regarding her pelvic pain. The patient is doing well. The following workup was done so far: GC/CT negative. Last visit urine test was negative. Last visit urine dip showed microscopic hematuria, urine culture was negative. Pelvic ultrasound showed the following: The uterus is anteverted and measures 11.9 x 4.2 x 4.8 cm. Endometrial thickness is 11 mm. Trace amount of free fluid. Right ovary measures 3.5 x 2.1 x 2.5 cm, volume 9.6 mL. Left ovary measures 2.6 x 3.0 x 3.0 cm, volume 12.2 mL. Bilateral ovaries are grossly unremarkable. [facility] Medical History HSV (herpes simplex virus) infection Adult BMI 45.0-49.9 kg/sq m Change in mole Prediabetes Elevated parathyroid hormone Elevated testosterone level Heavy menstrual bleeding Menometrorrhagia Hx of renal calculi Hx of constipation GERD (gastroesophageal reflux disease) Hx of iron deficiency History of asthma Surgical History History of vocal cord polypectomy Family History Father Diabetes mellitus Mother No problems noted. Brother No problems noted. Social History Household Members: Spouse Housing: House Alcohol intake: never Patient Tobacco Use Status: Never used Tobacco e-Cigarette/Vaping Use: Never Used Second Hand Smoke Exposure: No service: No Current occupational status: employed Current occupation: [employer] in [employer]. Current occupational exposures/hazards: No Sexual orientation: Straight/Heterosexual Gender identity: Female Cognitive needs: No Hearing needs: No Vision needs: No Female Reproductive History Menstrual Age of Menarche: 9 Review of Systems Const All systems reviewed & are unremarkable except as noted in HPI and below Reports as per HPI and Reports no additional complaints GI Reports no additional complaints Reports no additional complaints Telehealth Telehealth Telehealth Platform: Telephone Location of provider rendering services: practice address Location of patient: address on file Patient Identification confirmed using: Name, : Yes Telehealth method: video Patient verbally consented to treatment: Yes Patient verbally consented to billing insurance company: Yes Patient informed of any privacy concerns related to visit: Yes Assessment & Plan Assessment & Plan (1) Microscopic hematuria: Code(s): R31.29 - Other microscopic hematuria Category: Medical Plan: Instructions given the patient to schedule an appointment for repeat urine dip If persistent hematuria will proceed with CT scan urology referral. All questions answered, the patient verbalized understanding (2) Pelvic pain: Code(s): R10.2 - Pelvic and perineal pain Category: Medical Plan: Discussed with the patient the results of the workup done including negative GC/chlamydia, urine dip showed microscopic hematuria , urine culture negative, urine test and pelvic ultrasound. Differential diagnosis of photographic process worker cau ses that have not be ruled out yet include but not limited to microscopic hematuria causes if there is evidence of persistent microscopic hematuria, endometriosis, pelvic adhesions or other. Recommended for the patient to repeat urine dip if no evidence of persistent hematuria, will need to see her PCP for further workup for non photographic process worker causes; if the all the results are negative and the patient's pelvic pain is persistent, instructions given to patient to call back for further testing. If there is evidence of persistent hematuria will proceed with CT scan urology referral. Meanwhile, instructions were given the patient to go to emergency room or call in case of fever above 100.4, heavy vaginal bleeding, persistence or worsening of her pelvic pain. All questions answered, the patient verbalized understanding. I spent a total of 20 minutes reviewing the chart, talking to the patient via video and documenting in the medical record. Coding Level of Care Code Tele Est Pt Level 1 (95061) Diagnoses Microscopic hematuria R31.29 Pelvic pain R10.2
== END 2023-12-30 14:51 | disposition home or self-care (01) ==
LOC: HO.HWS 14:28
PROVIDERS: PCP Internal Medicine; Visit Provider Obstetrics & Gynecology
DX: R31.29 Other microscopic hematuria (principal); R10.2 Pelvic and perineal pain
CPT/HCPCS: 99211

== ENCOUNTER → 2023-12-30 14:28 | Outpatient (BNVA) | payer OTHER, SELFPAY | PROVIDERS: PCP Internal Medicine; Visit Provider Obstetrics & Gynecology ==

== ENCOUNTER 2024-02-25 15:18 | Outpatient (AMB) | payer OTHER, SELFPAY ==
[2024-02-25 15:36] VITALS: BP 116/70; PULSE 71; TEMP 36.6; O2SAT 96; BMI 53.6
--- NOTE | 2024-02-25 15:36 | MHC.OFFWIV ---
Intake Vital Signs 02/25/24 15:36 Height 5 ft 5 in Weight 322 lb BMI 53.6 BP 116/70 Blood Pressure Location Rt brachial Position Sitting Pulse 71 Pulse Source Pulse Oximeter Temp 97.8 F Temp Source Oral Pulse Oximetry (%) 96 Oxygen Delivery Method Room Air Intake Visit Reasons: EP Sore throat, congestion Intake Note: Patient here for sore throat and congestion that has been present for about 2 weeks. Patient Tobacco Use Status: Never used Tobacco Allergies No Known Allergies [No Known Allergies*] Allergy (Verified 02/25/24 15:37) Do you need a note to return to daycare/school/sports/work: No HPI HPI Comments History of Present Illness Details This is a 28-year-old female who presented to the walk-in clinic today complaining of cough, wheezing in the setting of recent viral URI symptoms. Patient states she developed viral URI symptoms approximately 2 weeks ago. She states she had a sore throat, nasal / sinus congestion, rhinorrhea, headaches, and low-grade fevers. She was evaluated at an urgent care about 9 days ago and she had a negative strep test and a negative COVID and flu. They recommended symptomatic management at that time. Patient states her symptoms somewhat improved; however, she then started to develop a severe sore throat again as well as a productive cough and occasional wheezing. Patient states she has been utilizing her rescue inhaler more than usual. Patient has been using [id number] decongestants as well as natural treatments without much relief. [facility] Medical History HSV (herpes simplex virus) infection Adult BMI 45.0-49.9 kg/sq m Change in mole Prediabetes Elevated parathyroid hormone Elevated testosterone level Heavy menstrual bleeding Menometrorrhagia Hx of renal calculi Hx of constipation GERD (gastroesophageal reflux disease) Hx of iron deficiency History of asthma Surgical History History of vocal cord polypectomy Family History Father Diabetes mellitus Mother No problems noted. Brother No problems noted. Social History Household Members: Spouse Housing: House Alcohol intake: never Patient Tobacco Use Status: Never used Tobacco e-Cigarette/Vaping Use: Never Used Second Hand Smoke Exposure: No service: No Current occupational status: employed Current occupation: [employer] in [employer]. Current occupational exposures/hazards: No Sexual orientation: Straight/Heterosexual Gender identity: Female Cognitive needs: No Hearing needs: No Vision needs: No Female Reproductive History Menstrual Age of Menarche: 9 Review of Systems Const All systems reviewed & are unremarkable except as noted in HPI and below Reports no additional complaints Eyes Reports no additional complaints ENT Reports no additional complaints Card Reports no additional complaints Resp Reports no additional complaints GI Reports no additional complaints Reports no additional complaints Musc Reports no additional complaints Skin/Breast Reports system reviewed and no additional complaints, except as documented Neuro Reports no additional complaints Psych Reports no additional complaints Endo Reports no additional complaints Kenny/Lymph Reports no additional complaints Aller/Immun Reports no additional complaints Physical Exam Vital Signs: Last Vital Signs Temp 97.8 F 02/25/24 15:36 Pulse 71 02/25/24 15:36 BP 116/70 02/25/24 15:36 Pulse Ox 96 02/25/24 15:36 Oxygen Delivery Method Room Air 02/25/24 15:36 BMI result Body Mass Index 53.6 Const Other: Vital signs reviewed. Constitutional: Non-toxic appearing. No acute distress. Well-developed and well-nourished. HEENT: Normocephalic and atraumatic. Tympanic membranes without erythema, edema, or bulging bilaterally. External auditory canals without erythema or edema bilaterally. Moist mucous membranes. Mild posterior pharyngeal erythema and edema. No stridor. Patient is maintaining her airway. Skin: Warm and dry. No rashes or lesions noted. Neck: Full and painless range of motion. No cervical lymphadenopathy. Cardio: Regular rate and rhythm. No murmurs, gallops, or rubs. No lower extremity edema. No JVD. Pulmonary: No respiratory distress. No accessory muscle usage. Clear to auscultation bilaterally without wheezing, crackles, or rhonchi. Musculoskeletal: Normal range of motion in joints throughout the body. No deformity or other signs of injury. Neuro: Alert and oriented x4. Cranial nerves 2-12 grossly intact. No focal deficits appreciated. Psych: Normal mood and affect. Results AMB Rapid Strep AMB Rapid Strep Negative Last Edit by KONRAD Orellana on 02/25/24 15:53 Assessment & Plan Assessment & Plan (1) Acute asthmatic bronchitis: Code(s): J45.909 - Unspecified asthma, uncomplicated Plan: This is a 28-year-old female who presented to the walk-in clinic complaining of productive cough and wheezing in the setting of recent viral URI symptoms. History and physical most consistent with an acute asthmatic bronchitis. Patient was given a prescription for PO prednisone 40 mg daily x5 days and PO azithromycin 500 mg today followed by 250 mg daily x4 days. Recommended symptomatic management including rest, increased fluids, fluticasone nasal spray, advil/tylenol for pain/fever, salt water gargles, and over the counter throat lozenges/decongestants. Patient advised to follow up here or go to the emergency room for worsening/persistent symptoms including shortness of breath, hemoptysis, chest pain, fevers/chills, etc. Patient verbalized understanding and is agreeable with the plan. Medications: New prednisone 40 mg (2 x 20 mg) PO DAILY 10 tabs 0RF azithromycin For 250 mg dose pack: take 500 mg today (day 1), then 250 mg for 4 days (days 2-5) PO 6 tabs 0RF Coding Level of Care Code Est Pt Level 3 (23623) Diagnoses Acute asthmatic bronchitis J45.909
== END 2024-02-25 16:42 | disposition home or self-care (01) ==
PROVIDERS: PCP Internal Medicine; Visit Provider Physician Assistant Medical
DX: J45.909 Unspecified asthma, uncomplicated (principal); Z13.9 Encounter for screening, unspecified

== ENCOUNTER → 2024-02-25 15:18 | Outpatient (BNVA) | payer OTHER, SELFPAY | PROVIDERS: PCP Internal Medicine; Visit Provider Physician Assistant Medical | DX: J45.909 Unspecified asthma, uncomplicated (principal) | CPT/HCPCS: 87880 ==

== ENCOUNTER 2024-04-04 10:32 | Outpatient (AMB) | payer OTHER, SELFPAY ==
--- NOTE | 2024-04-04 10:32 | MHC.OFFVIS ---
Vital Signs 04/04/24 10:33 Height 5 ft 5 in Weight 322 lb BMI 53.6 Intake Visit Reasons: consult per Intake Note: Last period Sept negative test in February, positive home test over weekend Gun Numberer: Gun Numberer Present Allergies No Known Allergies [No Known Allergies*] Allergy (Verified 04/04/24 10:33) Is last menstrual period known: Yes HPI Comments Details: Patient is here today with a positive test, accompanied by her partner. She has a history of irregular periods, last home UPT was in February was negative. This is her 1st and she is very happy. She denies any bleeding or pelvic pain. [facility] Medical History (Updated 04/04/24 @ 10:57 by Jennifer Roman CNM) Date of last menstrual period (LMP) unknown HSV (herpes simplex virus) infection Adult BMI 45.0-49.9 kg/sq m Change in mole Prediabetes Elevated parathyroid hormone Elevated testosterone level Heavy menstrual bleeding Menometrorrhagia Hx of renal calculi Hx of constipation GERD (gastroesophageal reflux disease) Hx of iron deficiency History of asthma Surgical History History of vocal cord polypectomy Family History Father Diabetes mellitus Mother No problems noted. Brother No problems noted. Social History Household Members: Spouse Housing: House Alcohol intake: never Patient Tobacco Use Status: Never used Tobacco e-Cigarette/Vaping Use: Never Used Second Hand Smoke Exposure: No service: No Current occupational status: employed Current occupation: [employer] in [employer]. Current occupational exposures/hazards: No Sexual orientation: Straight/Heterosexual Gender identity: Female Cognitive needs: No Hearing needs: No Vision needs: No Female Reproductive History Menstrual Age of Menarche: 9 Review of Systems Const All systems reviewed & are unremarkable except as noted in HPI and below Endo Reports no additional complaints Physical Exam Vital Signs: BMI result Body Mass Index 53.6 Const General: cooperative, healthy appearing and no acute distress Psych Appearance: well kempt Attitude: cooperative Thought process: Normal thought process present Results AMB Test Urine AMB Test Urine Positive Last Edit by MIGUEL Caban on 04/04/24 10:46 Results Reviewed Results Reviewed: Laboratory Last Values [facility] Clinic Positive 04/04/24 10:46 Assessment & Plan Assessment & Plan (1) Date of last menstrual period (LMP) unknown: Code(s): Z78.9 - Other specified health status Category: Medical Plan Discussed: Plan beta HCG today and repeat in 48 hours when level is significant plan in early gestational confirmation for IUP. Advised to report any vaginal bleeding or pelvic. Rx for vitamins initiated. Discussed nutrition and fluid intake. Advised will need to be cared for at [facility] due to high-risk with elevated BMI. Strongly recommended to continue taking her vitamin-D supplements. Advised to call with any nausea vomiting unable to keep foods down. Await test results for next step and plan of care. The patient expressed understanding and agreement with the plan of care. All of her questions and concerns were addressed to the best of my ability. This note is constructed using voice recognition software. While every effort has been made to ensure accuracy, collection manager errors may have been included. Orders: Orders HCG Quantitative Today Z78.9 - Other specified health status AMB HCG Urine Test Today Z32.01 - Encounter for test, result positive Medications: New PNV,calcium 58-ofea-csmgd acid 27 mg iron- 1 mg ( Vitamins Plus Low Iron) 1 tab PO ONCE 90 tabs 4RF Coding Level of Care Code Est Pt Level 3 (96242) Diagnoses Date of last menstrual period (LMP) unknown Z78.9
[2024-04-04 10:33] VITALS: BMI 53.6
== END 2024-04-04 11:06 | disposition home or self-care (01) ==
LOC: HO.HWS 10:32
PROVIDERS: PCP Internal Medicine; Visit Provider Advanced Practice Midwife
DX: Z78.9 Other specified health status (principal); Z32.01 Encounter for pregnancy test, result positive
CPT/HCPCS: 99213

== ENCOUNTER 2024-04-17 11:17 | Outpatient (REF) | payer OTHER, SELFPAY ==
--- NOTE | ~2024-04-17 | US_ITS ---
CLINICAL HISTORY: Z34.90 - SIZE AND DATES US OB 1st trimester transabdominal Comparison: None Findings: Single intrauterine . Gestational sac containing yolk sac and embryo. CRL: 0.28 cm. EGA: 6 weeks 0 days. GAGANDEEP: 12/10/2024. Previously established gestational age: N/A. Normal yolk sac . Cardiac activity: 113 bpm. No subchorionic bleed. IMPRESSION: Single intrauterine estimated 6 weeks 0 days gestational age by today's ultrasound criteria. This document has been electronically signed by: Kinjal Macdonald MD on 04/18/2024 07:18:28
--- OUTSIDE RECORDS SUMMARY | 2024-04-17 16:10 | XMS_ITS | Encounter Summary ---
Author Organization [facility] Address [address] [place] [address] Care Team Providers Care Inclined Railway Operator Name Role Phone Gianna Regalado DO Primary Care Pro vider Unavailable Aurea De León MD Primary Care Provider Unavailabl e Reason for Referral * Non GEORGE (Routine) - Unable to reach/declined Specialty Diagnoses / Procedures Referred By Alex poe Referred To Contact Podiatry Procedures REFERRAL TO PODIATRY Gianna Regalado DO [address] [place] [address] Pod/[address] [address] Referral ID Status Reason Start Date Expiration Date V isits Requested Visits Authorized [id number] 06/12 Unable to reach/decli jeannine 06/06/2015 06/05/2016 1 1 Encounter Details Date Type Department Care Team Description 06/06/2015 Orders Only Adult Medicine [place] - [place] [address] Gianna Regalado DO Social History Tobacco Use Types Packs/Day Years Used Date Smoking Tobacco: Never Smokeless Tobacco: Never Alcohol Use Standard Drinks/Week Comments Not Asked 0 (1 standard drink = 0.6 oz pur e alcohol) Sex Assigned at Date Recorded Female 12/20/2023 4:12 PM E DT documented as of this encounter Plan of Treatment Not on file documented as of this encounter Visit Diagnoses Not on filedocumented in this encounter Care Teams Inclined Railway Operator Relationship Specialty Start Date End Date Gianna Regalado DO PCP - General Internal Medicine 08/01/13 12/16/23 Aurea De León MD PCP - General Internal Medicine 12/17/23 documented as of this encounter
--- OUTSIDE RECORDS SUMMARY | 2024-04-17 16:10 | XMS_ITS | Encounter Summary ---
Author Organization [facility] Address [address] [place] [address] Care Team Providers Care Software Support Engineer Name Role Phone Aurea De León MD Primary Care Provider [phone] Reason for Visit * Reason Onset Date Comments testing 04/14/2024 Encounter Details Date Type Department Care Team ([facility] Contact Info) Description 04/14/2024 Telephone Orthopedic Surgery [facility] [address] [phone] Brad Hatch, DPM [address] [address] testing Social History Tobacco Use Types Packs/Day Years Used Date Smoking Tobacco: Never Smokeless Tobacco: Never Alcohol Use Standard Drinks/Week Comments No 0 (1 standard drink = 0.6 oz pur e alcohol) Sex and Gender Information Value Date Recorded Sex Assigned at Not on file Gender Identity Not on file Sexual Orientation Not on file Job Start Date Occupation Industry Not on file Not on file Not on file documented as of this encounter Progress Notes * Teresa Ware - 04/14/2024 1:38 PM EST Spoke with [facility] , MRI Dept, per Dr Hatch, order was Dc'd and patient is also aware . She still wanted to keep her fu appt in April with Dr Hatch. * Teresa Ware - 04/14/2024 1:17 PM EST Ariela, from [facility] MRI Dept, is calling stating that they received an order for pt to have an MRI B/L Feet, however, she is now . In order for her to proceed with the MRI, Both Dr Hatch and patient will need to sign a Consent Form, which will be provided by the MRI Dept , if you still want patient to have testing done Please advise. Please call linnea MRI Dept [phone]. Thanks. documented in this encounter Plan of Treatment Upcoming Encounters Date Type Department Care Team (Late st Contact Info) Description 05/16/2024 3:30 PM EST Office Visit Orthopedic Surgery - [place] [address] [phone] Brad Hatch, DPM [address] [address] documented as of this encounter Visit Diagnoses Not on filedocumented in this encounter Care Teams Software Support Engineer Relationship Specialty Start Date End Date Aurea De León MD [address] [place] [address] PCP - General 12/17/23 documented as of this encounter
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
--- OUTSIDE RECORDS SUMMARY | 2024-04-17 16:10 | XMS_ITS | Encounter Summary ---
Author Organization [facility] Address [address] [place] [address] Care Team Providers Care Veneer Manufacturer Name Role Phone Gianna Regalado DO Primary Care Pro vider Unavailable Aurea De León MD Primary Care Provider Unavailabl e Encounter Details Date Type Department Care Team Description 12/28/2017 Release of Information Medical Records [address] [place] [id number] Abstract, Provider Social History Tobacco Use Types Packs/Day Years [...] on filedocumented in this encounter Care Teams Veneer Manufacturer Relationship Specialty Start Date End Date Gianna Regalado DO PCP - General Internal Medicine 08/01/13 12/16/23 Aurea De León MD PCP - General Internal Medicine 12/17/23 documented as of this encounter
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
--- OUTSIDE RECORDS SUMMARY | 2024-04-17 16:10 | XMS_ITS | Encounter Summary ---
Author Organization [facility] Address [address] [place] [address] Care Team Providers Care Button Inspector Name Role Phone Alejandra Balderas MD Primary Care Provider Unavailab le Gianna Regalado DO Primary Care Pro vider Unavailable Aurea De León MD Primary Care Provider Unavailabl e Encounter Details Date Type Department Care Team Description 09/23/2010 Abstract Pediatrics - [address] [address] Alejandra Balderas MD Social History Tobacco Use Types Packs/Day Years [...] on filedocumented in this encounter Care Teams Button Inspector Relationship Specialty Start Date End Date Alejandra Balderas MD PCP - General 06/11/10 07/31/13 Gianna Regalado DO PCP - General Internal Medicine 08/01/13 12/16/23 Aurea De León MD PCP - General Internal Medicine 12/17/23 documented as of this encounter
--- OUTSIDE RECORDS SUMMARY | 2024-04-17 16:10 | XMS_ITS | Encounter Summary ---
Author Organization [facility] Address [address] [place] [address] Care Team Providers Care Web Marketing Manager Name Role Phone Gianna Regalado DO Primary Care Pro vider Unavailable Aurea De León MD Primary Care Provider Unavailabl e Reason for Visit * Reason Onset Date Comments hospital follow up 01/06/2018 Encounter Details Date Type Department Care Team Description 01/06/2018 Pt. Non Urgent Medic al Question Adult Medicine [address] [address] Gianna Regalado DO Social History Tobacco Use Types Packs/Day Years Used Date Smoking Tobacco: Never Smokeless Tobacco: Never Alcohol Use Standard Drinks/Week Comments No 0 (1 standard drink = 0.6 oz pur e alcohol) Sex Assigned at Date Recorded Female 12/20/2023 4:12 PM E DT documented as of this encounter Progress Notes * Rani Ramey M.A. - 01/06/2018 7:26 AM EDTFrom: Alphonse Viramontes To: Gianna Concepcion DO Sent: 01/06/2018 6:58 AM EDT Subject: Admitted Hi, I didn't go to my ultrsound appointment because I've been admitted to [facility]. I've been having seizure (episodes) since Tueday night documented in this encounter Plan of Treatment Not on file documented as of this encounter Visit Diagnoses Not on filedocumented in this encounter Care Teams Web Marketing Manager Relationship Specialty Start Date End Date Gianna Regalado DO PCP - General Internal Medicine 08/01/13 12/16/23 Aurea De León MD PCP - General Internal Medicine 12/17/23 documented as of this encounter
--- OUTSIDE RECORDS SUMMARY | 2024-04-17 16:10 | XMS_ITS | Encounter Summary ---
[facility] Organization [facility] Address [address] [place] [address] Care Team Providers Care Detective Homicide Squad Name Role Phone Gianna Regalado DO Primary Care Pro vider Unavailable Aurea De León MD Primary Care Provider Unavailabl e Reason for Visit * Reason Onset Date Comments REFERRAL 06/20/2015 Encounter Details Date Type Department Care Team Description 06/20/2015 Telephone Adult Medicine [address] [address] Gianna Regalado DO REFERRAL Social History Tobacco Use Types Packs/Day Years Used Date Smoking Tobacco: Never Smokeless Tobacco: Never Alcohol Use Standard Drinks/Week Comments Not Asked 0 (1 standard drink = 0.6 oz pur e alcohol) Sex Assigned at Date Recorded Female 12/20/2023 4:12 PM E DT documented as of this encounter Miscellaneous Notes * Telephone Encounter - Samia Ring - 06/20/2015 9:12 AM EDT Pt was put on the Podiatry referrals report for: Problem visit for foot pain and heel spurs Priority: Next Available; pt was called and a letter was sent; pt has not responded. documented in this encounter Plan of Treatment Not on file documented as of this encounter Visit Diagnoses Not on filedocumented in this encounter Care Teams Detective Homicide Squad Relationship Specialty Start Date End Date Gianna Regalado DO PCP - General Internal Medicine 08/01/13 12/16/23 Aurea De León MD PCP - General Internal Medicine 12/17/23 documented as of this encounter
--- OUTSIDE RECORDS SUMMARY | 2024-04-17 16:10 | XMS_ITS | Encounter Summary ---
Author Organization [facility] Address [address] [place] [address] Care Team Providers Care Physical Chemistry Teacher Name Role Phone Gianna Regalado DO Primary Care Pro vider Unavailable Aurea De León MD Primary Care Provider Unavailabl e Encounter Details Date Type Department Care Team Description 01/25/2018 Residential Specialist Report Medical Records [address] [place] [address] Lynette Roberts Social History Tobacco Use Types Packs/Day Years [...] on filedocumented in this encounter Care Teams Physical Chemistry Teacher Relationship Specialty Start Date End Date Gianna Regalado DO PCP - General Internal Medicine 08/01/13 12/16/23 Aurea De León MD PCP - General Internal Medicine 12/17/23 documented as of this encounter
--- OUTSIDE RECORDS SUMMARY | 2024-04-17 16:10 | XMS_ITS | Encounter Summary ---
Author Organization [facility] Address [address] [place] [address] Care Team Providers Care Radiator Tester Name Role Phone Gianna Regalado DO Primary Care Pro vider Unavailable Aurea De León MD Primary Care Provider Unavailabl e Encounter Details Date Type Department Care Team Description 03/02/2018 SCAN Medical Records [address] [place] [address] Abstract, Provider Social History Tobacco Use Types [...] on filedocumented in this encounter Care Teams Radiator Tester Relationship Specialty Start Date End Date Gianna Regalado DO PCP - General Internal Medicine 08/01/13 12/16/23 Aurea De León MD PCP - General Internal Medicine 12/17/23 documented as of this encounter
--- OUTSIDE RECORDS SUMMARY | 2024-04-17 16:10 | XMS_ITS | Encounter Summary ---
Author Organization [facility] Address [address] [place] [address] Care Team Providers Care Sustainability Coach Name Role Phone Gianna Regalado DO Primary Care Pro vider Unavailable Aurea De León MD Primary Care Provider Unavailabl e Encounter Details Date Type Department Care Team Description 02/11/2018 Old Medical Records Medical Records [address] [place] [address] Abstract, Provider Social History Tobacco Use Types [...] on filedocumented in this encounter Care Teams Sustainability Coach Relationship Specialty Start Date End Date Gianna Regalado DO PCP - General Internal Medicine 08/01/13 12/16/23 Aurea De León MD PCP - General Internal Medicine 12/17/23 documented as of this encounter
--- OUTSIDE RECORDS SUMMARY | 2024-04-17 16:10 | XMS_ITS | Encounter Summary ---
Author Organization [facility] Address [address] [place] [address] Care Team Providers Care Financial Officer Name Role Phone Aurea De León MD Primary Care Provider [phone] Reason for Visit * Reason Onset Date Comments [employer] 03/02/2024 Zepbound and leslie or auth Encounter Details Date Type Department Care Team (Late st Contact Info) Description 03/02/2024 Telephone Bariatric Surgery - [place] [address] [phone] Megan Lombardi PA [address] [address] [employer] (Zepbound and prior auth) Social History Tobacco Use Types Packs/Day Years [...] as of this encounter Progress Notes * Fely Ramos - 03/24/2024 3:13 PM EST Patient was denied. Please appeal * Fely Ramos - 03/02/2024 3:54 PM EST Patient called to say insurance is not going to change. Please send script for Zepbound and submit PA documented in this encounter Plan of Treatment Upcoming Encounters Date Type Department Care Team (Late st Contact Info) Description 05/16/2024 3:30 PM EST Office Visit Orthopedic Surgery - [place] [address] [phone] Brad Hatch, DPM [address] [address] documented as of this encounter Visit Diagnoses Not on filedocumented in this encounter Care Teams Financial Officer Relationship Specialty Start Date End Date Aurea De León MD [address] [place] [address] PCP - General 12/17/23 documented as of this encounter
--- OUTSIDE RECORDS SUMMARY | 2024-04-17 16:10 | XMS_ITS | Encounter Summary ---
Author Organization [facility] Address [address] [place] [address] Care Team Providers Care Gluing Machine Offbearer Name Role Phone Alejandra Balderas MD Primary Care Provider Unavailab le Gianna Regalado DO Primary Care Pro vider Unavailable Aurea De León MD Primary Care Provider Unavailabl e Encounter Details Date Type Department Care Team Description 06/16/2010 MyChart Proxy Form Medical Records [address] [place] [address] Abstract, Provider Social History Tobacco Use Types [...] on filedocumented in this encounter Care Teams Gluing Machine Offbearer Relationship Specialty Start Date End Date Alejandra Balderas MD PCP - General 06/11/10 07/31/13 Gianna Regalado DO PCP - General Internal Medicine 08/01/13 12/16/23 Aurea De León MD PCP - General Internal Medicine 12/17/23 documented as of this encounter
--- OUTSIDE RECORDS SUMMARY | 2024-04-17 16:10 | XMS_ITS | Encounter Summary ---
[facility] Address [address] [place] [address] Care Team Providers Care Shirring Machine Operator Automatic Name Role Phone Gianna Regalado DO Primary Care Pro vider Unavailable Aurea De León MD Primary Care Provider Unavailabl e Encounter Details Date Type Department Care Team Description 01/05/2018 Hospital Medical Records [address] [place] [address] Foster Kim Social History Tobacco Use Types Packs/Day Years [...] on filedocumented in this encounter Care Teams Shirring Machine Operator Automatic Relationship Specialty Start Date End Date Gianna Regalado DO PCP - General Internal Medicine 08/01/13 12/16/23 Aurea De León MD PCP - General Internal Medicine 12/17/23 documented as of this encounter
--- OUTSIDE RECORDS SUMMARY | 2024-04-17 16:10 | XMS_ITS | Encounter Summary ---
Author Organization [facility] Address [address] [place] [address] Care Team Providers Care Van Owner Operator Name Role Phone Gianna Regalado DO Primary Care Pro vider Unavailable Aurea De León MD Primary Care Provider Unavailabl e Encounter Details Date Type Department Care Team Description 11/10/2017 Pt. Non Urgent Medic al Question Adult Medicine [address] [address] Maritza Conde PA-C Social History Tobacco Use Types Packs/Day Years Used Date Smoking Tobacco: Never Smokeless Tobacco: Never Alcohol Use Standard Drinks/Week Comments No 0 (1 standard drink = 0.6 oz pur e alcohol) Sex Assigned at Date Recorded Female 12/20/2023 4:12 PM E DT documented as of this encounter Progress Notes * Lolis Mccauley M.A. - 11/10/2017 11:11 AM EDTFrom: Alphonse Viramontes To: Maritza Conde PA-C Sent: 11/10/2017 11:04 AM EDT Subject: email from yesterday Just following up on my email documented in this encounter Plan of Treatment Not on file documented as of this encounter Visit Diagnoses Not on filedocumented in this encounter Care Teams Van Owner Operator Relationship Specialty Start Date End Date Gianna Regalado DO PCP - General Internal Medicine 08/01/13 12/16/23 Aurea De León MD PCP - General Internal Medicine 12/17/23 documented as of this encounter
--- OUTSIDE RECORDS SUMMARY | 2024-04-17 16:10 | XMS_ITS | Encounter Summary ---
Author Organization [facility] Address [address] [place] [address] Care Team Providers Care Spa Supervisor Name Role Phone Gianna Regalado DO Primary Care Pro vider Unavailable Aurea De León MD Primary Care Provider Unavailabl e Encounter Details Date Type Department Care Team Description 03/26/2014 Hospital Medical Records [address] [place] [address] Maldonado Agarwal Social History Tobacco Use Types Packs/Day Years [...] on filedocumented in this encounter Care Teams Spa Supervisor Relationship Specialty Start Date End Date Gianna Regalado DO PCP - General Internal Medicine 08/01/13 12/16/23 Aurea De León MD PCP - General Internal Medicine 12/17/23 documented as of this encounter
--- OUTSIDE RECORDS SUMMARY | 2024-04-17 16:10 | XMS_ITS | Encounter Summary ---
Author Organization [facility] Address [address] [place] [address] Care Team Providers Care Branch Manager Trainee Name Role Phone Gianna Regalado DO Primary Care Pro vider Unavailable Aurea De León MD Primary Care Provider Unavailabl e Encounter Details Date Type Department Care Team Description 02/24/2014 Pt. Non Urgent Medic al Question Adult Medicine [address] [address] Gianna Regalado DO Social History Tobacco Use Types Packs/Day Years Used Date Smoking Tobacco: Never Smokeless Tobacco: Never Alcohol Use Standard Drinks/Week Comments Not Asked 0 (1 standard drink = 0.6 oz pur e alcohol) Sex Assigned at Date Recorded Female 12/20/2023 4:12 PM E DT documented as of this encounter Progress Notes * Kiana Xiong M.A. - 02/26/2014 8:01 AM ESTFrom: Alphonse Viramontes To: Gianna Concepcion DO Sent: 02/24/2014 2:33 PM EST Subject: Vacation Hope you are well, I'm going away from 3 weeks from March 13 to April 07 and I wanted to know if there was away to get my March prescription earlier Thank You, documented in this encounter Plan of Treatment Not on file documented as of this encounter Visit Diagnoses Not on filedocumented in this encounter Care Teams Branch Manager Trainee Relationship Specialty Start Date End Date Gianna Regalado DO PCP - General Internal Medicine 08/01/13 12/16/23 Aurea De León MD PCP - General Internal Medicine 12/17/23 documented as of this encounter
--- OUTSIDE RECORDS SUMMARY | 2024-04-17 16:10 | XMS_ITS | Encounter Summary ---
[facility] Address [address] [place] [address] Care Team Providers Care Architectural Coating Finisher Name Role Phone Gianna Regalado DO Primary Care Pro vider Unavailable Aurea De León MD Primary Care Provider Unavailabl e Encounter Details Date Type Department Care Team Description 01/12/2018 Medical Economics Consultant Report Medical Records [address] [place] [address] Abstract, Provider Social History Tobacco Use Types [...] on filedocumented in this encounter Care Teams Architectural Coating Finisher Relationship Specialty Start Date End Date Gianna Regalado DO PCP - General Internal Medicine 08/01/13 12/16/23 Aurea De León MD PCP - General Internal Medicine 12/17/23 documented as of this encounter
--- OUTSIDE RECORDS SUMMARY | 2024-04-17 16:11 | XMS_ITS | Encounter Summary ---
Author Organization [facility] Address [address] [place] [address] Care Team Providers Care Lead Programmer Analyst Name Role Phone Gianna Regalado DO Primary Care Pro vider Unavailable Aurea De León MD Primary Care Provider Unavailabl e Reason for Visit * Reason Onset Date Comments er follow up 07/27/2017 Encounter Details Date Type Department Care Team Description 07/27/2017 Telephone Adult Medicine [address] [address] Gianna Regalado DO er follow up Social History Tobacco Use Types Packs/Day Years Used Date Smoking Tobacco: Never Smokeless Tobacco: Never Alcohol Use Standard Drinks/Week Comments Not Asked 0 (1 standard drink = 0.6 oz pur e alcohol) Sex Assigned at Date Recorded Female 12/20/2023 4:12 PM E DT documented as of this encounter Miscellaneous Notes * Telephone Encounter - Brad Camara - 07/27/2017 1:52 PM EDT ER follow-up appointment booked YES 07/28/17 If ER follow up, can be booked with mid-level or MD. If hospital admission follow up MUST be booked with a physician Appointment time: 11:45am Provider visit is scheduled with: Maritza Conde PA-C Hospital patient was treated at: [facility] Date of visit: 06/23/17 Was this only an ER visit or was the patient admitted to the hospital? ER visit onlyER visit only If patient was admitted what was the date of discharge? N/A Reason/diagnosis for visit or stay: UTI Was visit or stay related to an injury? NO If yes, what was the date of injury (DOI)? N/A If yes, was the injury due to N/A Tests performed: Lab: YES X-ray: YES EKG: YES Other tests. If yes, what?; N/A documented in this encounter Plan of Treatment Not on file documented as of this encounter Visit Diagnoses Not on filedocumented in this encounter Care Teams Lead Programmer Analyst Relationship Specialty Start Date End Date Gianna Regalado DO PCP - General Internal Medicine 08/01/13 12/16/23 Aurea De León MD PCP - General Internal Medicine 12/17/23 documented as of this encounter
--- OUTSIDE RECORDS SUMMARY | 2024-04-17 16:11 | XMS_ITS | Encounter Summary ---
Author Organization [facility] Address [address] [place] [address] Care Team Providers Care Pharm Spec Name Role Phone Aurea De León MD Primary Care Provider [phone] Reason for Referral * Imaging (Routine) - Pending Review Specialty Diagnoses / Procedures Referred By Contac t Referred To Contact Radiology Diagnoses Plantar fascial fibromatosis Procedures MR Foot wo Contrast Left Brad Hatch DPM [address] [address] [facility] Referral ID Status Reason Start Date Expiration Date V isits Requested Visits Authorized [id number] Pending Review 03/30/2024 03/30/2025 1 1 * Imaging (Routine) - Pending Review Specialty Diagnoses / Procedures Referred By Alex poe Referred To Contact Radiology Diagnoses Plantar fascial fibromatosis Procedures MR Foot wo Contrast Right Brad Hatch DPM [address] [place] [address] [facility] Referral ID Status Reason Start Date Expiration Date V isits Requested Visits Authorized [id number] Pending Review 03/30/2024 03/30/2025 1 1 Reason for Visit * Reason Comments Follow-up Bilateral foot pain Encounter Details Date Type Department Care Team (Late st Contact Info) Description 03/30/2024 3:30 PM EST Office Visit Orthopedic Surgery - [place] [address] [phone] Brad Hatch DPM [address] [address] Plantar fascial fibromatosis (Primary Dx); Follow-up exam; Equinus contracture of ankle Social History Tobacco Use Types Packs/Day Years [...] on file documented as of this encounter Last Filed Vital Signs Vital Sign Reading Time Taken Comments Blood Pressure - - Pulse - - Temperature - - Respiratory Rate - - Oxygen Saturation - - Inhaled Oxygen Concentration - - Weight 138 kg (305 lb) 03/30/2024 3:42 PM EST Height 165.1 cm (5' 5 ) 03/30/2024 3:42 PM EST Body Mass Index 50.75 03/30/2024 3:42 PM EST documented in this encounter Progress Notes * Brad Hatch DPM - 03/30/2024 3:30 PM EST S Multiple pedal complaints that she has a skin irritation on her right foot she has been bothering for prolonged period of time she is wondering what it is she is wondering for something stuck in her foot is a walk-in rock notes she has heel pain in both feet she was seen by Dr. Lorena Orr had given multiple steroid injections with some improvement sharp shooting pain in her heels worse when she goes to sit to stand both feet equally hurt patient says she has had several rounds of steroid injections she is very frustrated she wants to know if she get more definitive diagnosis to get x-rays today's appointment is noted skin lesions of bilateral has not been putting any medication on it would like to hold off on any destructive procedures at today's appointment ROS: GENERAL: Pt denies nausea, fever, vomiting, chills, or shortness of breath. Pt in NAD. CARDIOLOGY: pt denies chest pain, palpitations LUNGS: pt denies shortness of breath MUSCULOSKELETAL: See HPI, otherwise no joint pain or swelling, back pain, or muscle pain. SKIN: see HPI, otherwise no lesions, rash or itching NEURO: No persistent headache, weakness or numbness The remainder of the review of systems is noncontributory PAST MEDICAL HISTORY: Patient Active Problem List Diagnosis Acanthosis nigricans Allergic rhinitis Asthma Elevated alkaline phosphatase level Gross hematuria Hyperparathyroidism (CMS/HCC) Obesity Renal calculi Vitamin D deficiency SOCIAL HISTORY: Social History Tobacco Use Smoking status: Never Smokeless tobacco: Never Substance Use Topics Alcohol use: No ACTIVE MEDICATIONS: No outpatient medications have been marked as taking for the 03/30/24 encounter (Office Visit) with Brad Hatch DPM. ALLERGIES: Allergies Allergen Reactions House Dust PHYSICAL EXAM: Visit Vitals Ht 1.651 m (65 ) Wt 138 kg (305 lb) BMI 50.75 kg/m?? Smoking Status Never BSA 2.36 m?? PODIATRIC EXAMINATION: GENERAL: Patient appears well nourished, with NAD. VASCULAR: Dorsalis pedis pulses are 2/4 bilaterally and Posterior tibial pulses are 2/4 bilaterally. Capillary filling time within normal limits the digits. No pallor on elevation or rubor on dependency. Positive hair growth. No varicosities. Denies rest pain or claudication pain. NEUROLOGICAL: Sharp/dull sensation intact, protective sensation intact 10/10 with 5.07 semmes mack bilaterally, vibratory sensation with tuning fork intact to the tibial tuberosity. ORTHOPEDIC: Good muscle strength 5/5 of all flexors and extensors. Dorsi flexion of ankle ,10 degrees, plantar flexion WNL. No muscle atrophy. Pain with palpation of the medial tuber of the calcaneus, negative palpable fibromas Equinus with 5 degrees dorsiflexion with knee bent 0 degrees with knee extended positive service occult test No pain on palpation of the posterior tibial tendon, patient to perform single and double heel raise No pain on palpation of the Achilles tendon. Negative palpable deficits of the Achilles tendon Normal range of motion of the ankle joint and subtalar joint DERMATOLOGICAL:.Abnormal skin formation ball of right foot deep central core pain with lateral compression pinpoint bleeding with debridement BIOMECHANICS: Ankle ROM WNL, STJ ROM wnl, MTJ ROM wnl, 1st MPJ ROM wnl. IMAGING: IMPRESSION: 1. Plantar fascial fibromatosis 2. Follow-up exam 3. Equinus contracture of ankle PLAN: Pt was seen and examined, history reviewed. Treatment options were discussed and reviewed including stretching exercises demonstrated for patient anti-inflammatory medications steroid injections orthotics and insoles Recommendations given for prefabricated insoles Referral offered physical therapy patient declined Prescription given for anti-inflammatory medication Voltaren gel Radiographs reviewed Surgery was discussed with patient in detail I discussed that she is a high BMI and is not a good surgical candidate secondary to morbid obesity did discuss possible benefits for MRI for definitive diagnosis grading of her fascial ligament thickness as well as other treat modalities given she is not improved with standard treatment modalities orthotics and insoles Advanced imaging study ordered of the right lower extremity Advanced imaging study ordered of the left lower extremity Follow-up in 1 month Brad Hatch DPM documented in this encounter Plan of Treatment Upcoming Encounters Date Type Department Care Team (Late st Contact Info) Description 05/16/2024 3:30 PM EST Office Visit Orthopedic Surgery - [place] [address] [phone] Brad Hatch DPM [address] [address] Scheduled Orders Name Type Priority Associated Diagnoses Orde r Schedule MR Foot wo Contrast Right Imaging Routine Plantar fascial fibromatosis Expected: 03/30/2024, Expires: 03/30/2025 MR Foot wo Contrast Left Imaging Routine Plantar fascial fibromatosis Expected: 03/30/2024, Expires: 03/30/2025 documented as of this encounter Results * XR Foot 3+ Views bilat [...] to calcaneal cuboid joint ?? Brad Hatch DPM IMG XR PROCEDURES documented in this encounter Visit Diagnoses Diagnosis Plantar fascial fibromatosis- Primary Follow-up exam Unspecified follow-up examination Equinus contracture of ankle documented in this encounter Care Teams Pharm Spec Relationship Specialty Start Date End Date Aurea De León MD [address] [place] [phone] PCP - General 12/17/23 documented as of this encounter
--- OUTSIDE RECORDS SUMMARY | 2024-04-17 16:11 | XMS_ITS | Encounter Summary ---
Author Organization [facility] Address [address] [place] [address] Care Team Providers Care Cardiothoracic Surgeon Name Role Phone Gianna Regalado DO Primary Care Pro vider Unavailable Aurea De León MD Primary Care Provider Unavailabl e Encounter Details Date Type Department Care Team Description 08/04/2017 Pt. Non Urgent Medic al Question Adult Medicine [address] [address] Maritza Conde PA-C Social History Tobacco Use Types Packs/Day Years Used Date Smoking Tobacco: Never Smokeless Tobacco: Never Alcohol Use Standard Drinks/Week Comments Not Asked 0 (1 standard drink = 0.6 oz pur e alcohol) Sex Assigned at Date Recorded Female 12/20/2023 4:12 PM E DT documented as of this encounter Progress Notes * Rani Ramey M.A. - 08/05/2017 7:19 AM EDTFrom: Alphonse Viramontes To: Maritza Conde PA-C Sent: 08/04/2017 8:22 PM EDT Subject: Bleeding Hey I know I have an appointment on Wednesday and I will be seeing a Urologist however I'm still bleeding. I guess my question is do I just wait or is there something I can do about it? Also how can I differentiate between this symptom and my period. I've been bleeding pretty much all month, but these past couple of days I've had to use a pad? (But it's not my regular flow) documented in this encounter Plan of Treatment Not on file documented as of this encounter Visit Diagnoses Not on filedocumented in this encounter Care Teams Cardiothoracic Surgeon Relationship Specialty Start Date End Date Gianna Regalado DO PCP - General Internal Medicine 08/01/13 12/16/23 Aurea De León MD PCP - General Internal Medicine 12/17/23 documented as of this encounter
--- OUTSIDE RECORDS SUMMARY | 2024-04-17 16:11 | XMS_ITS | Encounter Summary ---
[facility] Address [address] [place] [address] Care Team Providers Care Spooling Machine Operator Name Role Phone Gianna Regalado DO Primary Care Pro vider Unavailable Aurea De León MD Primary Care Provider Unavailabl e Encounter Details Date Type Department Care Team Description 08/09/2017 Screening Specialist Report Medical Records [address] [place] [address] Jose Daniel Fierro Social History Tobacco Use Types Packs/Day Years [...] on filedocumented in this encounter Care Teams Spooling Machine Operator Relationship Specialty Start Date End Date iGanna Regalado DO PCP - General Internal Medicine 08/01/13 12/16/23 Aurea De León MD PCP - General Internal Medicine 12/17/23 documented as of this encounter
== END 2024-04-17 11:18 | disposition home or self-care (01) ==
LOC: HO.HMGCX 11:17
PROVIDERS: PCP Internal Medicine; Visit Provider Advanced Practice Midwife
DX: Z34.90 Encounter for supervision of normal pregnancy, unspecified, unspecified trimester (principal)
CPT/HCPCS: 76801; 76817

== ENCOUNTER 2024-04-24 12:02 | Outpatient (REF) | payer OTHER, SELFPAY ==
--- OUTSIDE RECORDS SUMMARY | 2024-04-24 14:34 | XMS_ITS | Encounter Summary ---
Author Organization [facility] Address [address] [place] [address] Care Team Providers Care Cement Loader Name Role Phone Alejandra Balderas MD Primary Care Provider Unavailab le Gianna Regalado DO Primary Care Pro vider Unavailable Aurea De León MD Primary Care Provider Unavailabl e Encounter Details Date Type Department Care Team Description 06/16/2010 MyChart Proxy Form Medical Records [address] [place] [id number] Abstract, Provider Social History Tobacco Use Types [...] on filedocumented in this encounter Care Teams Cement Loader Relationship Specialty Start Date End Date Alejandra Balderas MD PCP - General 06/11/10 07/31/13 Gianna Regalado DO PCP - General Internal Medicine 08/01/13 12/16/23 Aurea De León MD PCP - General Internal Medicine 12/17/23 documented as of this encounter
--- OUTSIDE RECORDS SUMMARY | 2024-04-24 14:34 | XMS_ITS | Encounter Summary ---
Author Organization [facility] Address [address] [place] [address] Care Team Providers Care Consulting Analyst Name Role Phone Gianna Regalado DO Primary Care Pro vider Unavailable Aurea De León MD Primary Care Provider Unavailabl e Encounter Details Date Type Department Care Team Description 11/10/2017 Pt. Non Urgent Medic al Question Adult Medicine [address] [address] Maritza Conde PA-C Social History Tobacco Use [...] on filedocumented in this encounter Care Teams Consulting Analyst Relationship Specialty Start Date End Date Gianna Regalado DO PCP - General Internal Medicine 08/01/13 12/16/23 Aurea De León MD PCP - General Internal Medicine 12/17/23 documented as of this encounter
--- OUTSIDE RECORDS SUMMARY | 2024-04-24 14:34 | XMS_ITS | Clinical Summary ---
Author Organization 175 [facility] Address [address] [place] [address] Phone Care Team Providers Care Funeral Workers Name Role Phone Aurea De León MD Primary Care Provider [phone] Allergies Active Allergy Reactions Criticality Noted Date [...] Care Team Description 04/14/2024 Telephone Orthopedic Surgery [facility] [address] [phone] Brad Hatch DPM testing 03/30/2024 3:30 PM EST Office Visit Orthopedic Surgery [facility] [address] [phone] Brad Hatch DPM Plantar fascial fibromatosis (Primary Dx); Follow-up exam; Equinus contracture of ankle 03/17/2024 2:21 PM EST - 03/17/2024 3:47 PM EST Emergency [facility] Emergency [address] [place] [address] Loc Linares MD Dental abscess (Primary Dx) Discharge Disposition: Home or Self Care 03/02/2024 Telephone Bariatric Surgery - [place] 175 [facility] [address] [place] [address] Megan Lombardi PA [employer] (Zepbound and prior auth) 03/01/2024 3:30 PM EST Consult Bariatric Surgery - [place] 175 [facility] [address] [place] [address] Megan Lombardi PA Class 3 severe obesity due to excess calories without serious comorbidity with body mass index (BMI) of 50.0 to 59.9 in adult (CMS/HCC) (Primary Dx) 02/23/2024 8:45 AM EST Consult Orthopedic Surgery - [place] 250 175 [facility] [address] [place] [address] Brad Hatch, DPM Plantar fascial fibromatosis (Primary Dx); Equinus contracture of ankle; Verruca plantaris from Last 3 Months Immunizations Name Administration Dates Next Due DTaP (Infanrix) 6wks to less than 7yo ,04/22/1995,1993,08/11,1993 [id number] (Pentacel) 2mo to less than 5yo 04/22/1995,1993,1993,06/02 [...] PM EST Office Visit Orthopedic Surgery - [place] [address] [phone] Brad Hatch, DPM [address] [address] Health Maintenance Due Date Last Done Comments [...] RESULTING AGENCY - 11/08/2017 4:56 PM EDT [id number] THINPREP PAP, IMAGED: NEGATIVE FOR SQUAMOUS INTRAEPITHELIAL [...] Recently Relevant to Health Maintenance Care Teams Funeral Workers Relationship Specialty Start Date End Date Aurea De León MD [address] [place] [address] PCP - General 12/17/23
--- OUTSIDE RECORDS SUMMARY | 2024-04-24 14:35 | XMS_ITS | Encounter Summary ---
Author Organization [facility] Address [address] [place] [address] Care Team Providers Care Management Intern Name Role Phone Gianna Regalado DO Primary Care Pro vider Unavailable Aurea De León MD Primary Care Provider Unavailabl e Encounter Details Date Type Department Care Team Description 01/05/2018 Hospital Medical Records [address] [place] [address] Foster Kim Social History Tobacco Use Types [...] on filedocumented in this encounter Care Teams Management Intern Relationship Specialty Start Date End Date Gianna Regalado DO PCP - General Internal Medicine 08/01/13 12/16/23 Aurea De León MD PCP - General Internal Medicine 12/17/23 documented as of this encounter
--- OUTSIDE RECORDS SUMMARY | 2024-04-24 14:35 | XMS_ITS | Encounter Summary ---
Author Organization [facility] Address [address] [place] [address] Care Team Providers Care Presidential Helicopter Crew Chief Name Role Phone Gianna Regalado DO Primary Care Pro vider Unavailable Aurea De León MD Primary Care Provider Unavailabl e Encounter Details Date Type Department Care Team Description 03/26/2014 Hospital Medical Records [address] [place] [address] Maldonado gAarwal Social History Tobacco Use Types Packs/Day Years [...] on filedocumented in this encounter Care Teams Presidential Helicopter Crew Chief Relationship Specialty Start Date End Date Gianna Regalado DO PCP - General Internal Medicine 08/01/13 12/16/23 Aurea De León MD PCP - General Internal Medicine 12/17/23 documented as of this encounter
--- OUTSIDE RECORDS SUMMARY | 2024-04-24 14:35 | XMS_ITS | Encounter Summary ---
Author Organization [facility] Address [address] [place] [address] Care Team Providers Care Parquetry Layer Name Role Phone Gianna Regalado DO Primary Care Pro vider Unavailable Aurea De León MD Primary Care Provider Unavailabl e Reason for Visit * Reason Onset Date Comments Appointment-Internal Referral 12/29/2017 Encounter Details Date Type Department Care Team Description 12/29/2017 Telephone Adult Medicine [address] [address] Maritza Conde PA-C Appointment-Internal Referral Social History Tobacco Use Types Packs/Day Years Used Date Smoking Tobacco: Never Smokeless Tobacco: Never Alcohol Use Standard Drinks/Week Comments No 0 (1 standard drink = 0.6 oz pur e alcohol) Sex Assigned at Date Recorded Female 12/20/2023 4:12 PM E DT documented as of this encounter Miscellaneous Notes * Telephone Encounter - Amairani Ewing - 12/29/2017 3:43 PM EDT Patient stated she would like to schedule Endocrinology appointment with external provider. Taking patient off the list. documented in this encounter Plan of Treatment Not on file documented as of this encounter Visit Diagnoses Not on filedocumented in this encounter Care Teams Parquetry Layer Relationship Specialty Start Date End Date Gianna Regalado DO PCP - General Internal Medicine 08/01/13 12/16/23 Aurea De León MD PCP - General Internal Medicine 12/17/23 documented as of this encounter
--- OUTSIDE RECORDS SUMMARY | 2024-04-24 14:35 | XMS_ITS | Encounter Summary ---
Author Organization [facility] Address [address] [place] [address] Care Team Providers Care Security Architect Name Role Phone Gianna Regalado DO Primary Care Pro vider Unavailable Aurea De León MD Primary Care Provider Unavailabl e Encounter Details Date Type Department Care Team Description 01/10/2018 Hospital Medical Records [address] [place] [address] Talia Greene Social History Tobacco Use Types Packs/Day Years [...] filedocumented in this encounter Care Teams Security Architect Relationship Specialty Start Date End Date Gianna Regalado DO PCP - General Internal Medicine 08/01/13 12/16/23 Aurea De León MD PCP - General Internal Medicine 12/17/23 documented as of this encounter
--- OUTSIDE RECORDS SUMMARY | 2024-04-24 14:35 | XMS_ITS | Encounter Summary ---
Author Organization [facility] Address [address] [place] [address] Care Team Providers Care Pump Tender Name Role Phone Gianna Regalado DO Primary Care Pro vider Unavailable Aurea De León MD Primary Care Provider Unavailabl e Encounter Details Date Type Department Care Team Description 03/02/2018 [facility] Medical Records [address] [place] [address] Abstract, Provider Social History Tobacco Use Types [...] on filedocumented in this encounter Care Teams Pump Tender Relationship Specialty Start Date End Date Gianna Regalado DO PCP - General Internal Medicine 08/01/13 12/16/23 Aurea De León MD PCP - General Internal Medicine 12/17/23 documented as of this encounter
--- OUTSIDE RECORDS SUMMARY | 2024-04-24 14:35 | XMS_ITS | Encounter Summary ---
Author Organization [facility] Address [address] [place] [address] Care Team Providers Care Procedural Nurse Name Role Phone Gianna Regalado DO Primary Care Pro vider Unavailable Aurea De León MD Primary Care Provider Unavailabl e Reason for Visit * Reason Onset Date Comments hospital follow up 01/06/2018 Encounter Details Date Type Department Care Team Description 01/06/2018 Pt. Non Urgent Medic al Question Adult Medicine [address] [address] Gianna Regalado DO Social History Tobacco Use [...] ultrsound appointment because I've been admitted to [facility]. I've been having seizure (episodes) since Tueday night documented in this encounter Plan of Treatment Not on file documented as of this encounter Visit Diagnoses Not on filedocumented in this encounter Care Teams Procedural Nurse Relationship Specialty Start Date End Date Gianna Regalado DO PCP - General Internal Medicine 08/01/13 12/16/23 Aurea De León MD PCP - General Internal Medicine 12/17/23 documented as of this encounter
--- OUTSIDE RECORDS SUMMARY | 2024-04-24 14:35 | XMS_ITS | Encounter Summary ---
Author Organization [facility] Address [address] [place] [address] Care Team Providers Care Business Development Intern Name Role Phone Aurea De León MD Primary Care Provider [phone] Reason for Visit * Reason Onset Date Comments testing 04/14/2024 Encounter Details Date Type Department Care Team ([facility] Contact Info) Description 04/14/2024 Telephone Orthopedic Surgery [facility] [address] [phone] Brad Hatch, DPM [address] [address] testing Social History Tobacco Use Types Packs/Day [...] - 04/14/2024 1:17 PM EST Ariela, from [facility] MRI Dept, is calling stating that they [...] Please advise. Please call [facility] [phone]. Thanks. documented in this encounter Plan of Treatment Upcoming Encounters Date Type Department Care Team (Late st Contact Info) Description 05/16/2024 3:30 PM EST Office Visit Orthopedic Surgery - [place] [address] [phone] Brad Hatch, DPM [address] [address] documented as of this encounter Visit Diagnoses Not on filedocumented in this encounter Care Teams Business Development Intern Relationship Specialty Start Date End Date Aurea De León MD [address] [place] [address] PCP - General 12/17/23 documented as of this encounter
--- OUTSIDE RECORDS SUMMARY | 2024-04-24 14:35 | XMS_ITS | Encounter Summary ---
Author Organization [facility] Address [address] [place] [address] Care Team Providers Care Site Controller Name Role Phone Gianna Regalado DO Primary Care Pro vider Unavailable Aurea De León MD Primary Care Provider Unavailabl e Encounter Details Date Type Department Care Team Description 08/09/2017 Sanitation Worker Cleaning Machinery Report Medical Records [address] [place] [id number] Jose Daniel Fierro Social History Tobacco Use [...] on filedocumented in this encounter Care Teams Site Controller Relationship Specialty Start Date End Date Gianna Regalado DO PCP - General Internal Medicine 08/01/13 12/16/23 Aurea De León MD PCP - General Internal Medicine 12/17/23 documented as of this encounter
--- OUTSIDE RECORDS SUMMARY | 2024-04-24 14:35 | XMS_ITS | Encounter Summary ---
Author Organization [facility] Address [address] [place] [address] Care Team Providers Care Parts Clerk Name Role Phone Aurea De León MD Primary Care Provider [phone] Reason for Visit * Reason Onset Date Comments [employer] 03/02/2024 Zepbound and leslie or auth Encounter Details Date Type Department Care Team (Late st Contact Info) Description 03/02/2024 Telephone Bariatric Surgery - [place] [address] [phone] Megan Lombardi PA [address] [address] [employer] (Zepbound and prior auth) Social History [...] PM EST Office Visit Orthopedic Surgery - [place] [address] [phone] Brad Hatch, DPM [address] [address] documented as of this encounter Visit Diagnoses Not on filedocumented in this encounter Care Teams Parts Clerk Relationship Specialty Start Date End Date Aurea De León MD [address] [place] [address] PCP - General 12/17/23 documented as of this encounter
--- OUTSIDE RECORDS SUMMARY | 2024-04-24 14:35 | XMS_ITS | Encounter Summary ---
Author Organization [facility] Address [address] [place] [address] Care Team Providers Care Special Events Director Name Role Phone Gianna Regalado DO Primary Care Pro vider Unavailable Aurea De León MD Primary Care Provider Unavailabl e Reason for Visit * Reason Onset Date Comments Prior Authorization 08/21/2014 Encounter Details Date Type Department Care Team Description 08/21/2014 Telephone Adult Medicine [address] [address] Gianna Regalado DO Prior Authorization Social History Tobacco Use Types Packs/Day Years Used Date Smoking Tobacco: Never Smokeless Tobacco: Never Alcohol Use Standard Drinks/Week Comments Not Asked 0 (1 standard drink = 0.6 oz pur e alcohol) Sex Assigned at Date Recorded Female 12/20/2023 4:12 PM E DT documented as of this encounter Miscellaneous Notes * Telephone Encounter - Eva Hayden C.M.A. - 08/21/2014 4:20 PM EDT Patient still would need an appointment and last message states she does not have insurance. [facility] needs to come in and give us this information. * Telephone Encounter - Christina Yañez - 08/21/2014 10:17 AM EDT Pre Authorization for Medication Does the patient already have this medication?NO Name of Medication montelukast Dose of Medication 10 mg How does patient take this med? TAKE 1 TABLET BY MOUTH AT BEDTIME What other dosage or similar medication have you tried in the past for this problem Patients current medical insurance What Prescription Plan does the patient have? Prescription Plan Tel # from back of prescription ID card What is the patients Prescription Plan ID #? What Pharmacy does the patient use? [facility]: [id number] / Plan: [id number] $0 BILLY [id number] / Product Type: MEDICAID [id number] documented in this encounter Plan of Treatment Not on file documented as of this encounter Visit Diagnoses Not on filedocumented in this encounter Care Teams Special Events Director Relationship Specialty Start Date End Date Gianna Regalado DO PCP - General Internal Medicine 08/01/13 12/16/23 Aurea De León MD PCP - General Internal Medicine 12/17/23 documented as of this encounter
--- OUTSIDE RECORDS SUMMARY | 2024-04-24 14:35 | XMS_ITS | Encounter Summary ---
Author Organization [facility] Address [address] [place] [address] Care Team Providers Care Senior Stack Engineer Name Role Phone Gianna Regalado DO Primary Care Pro vider Unavailable Aurea De León MD Primary Care Provider Unavailabl e Encounter Details Date Type Department Care Team Description 03/31/2018 Ekg Technician Report Medical Records [address] [place] [address] Jose Daniel Fierro Social History Tobacco Use [...] on filedocumented in this encounter Care Teams Senior Stack Engineer Relationship Specialty Start Date End Date Gianna Regalado DO PCP - General Internal Medicine 08/01/13 12/16/23 Aurea De León MD PCP - General Internal Medicine 12/17/23 documented as of this encounter
--- OUTSIDE RECORDS SUMMARY | 2024-04-24 14:35 | XMS_ITS | Encounter Summary ---
Author Organization [facility] Address [address] [place] [address] Care Team Providers Care Hvac Design Mechanical Engineer Name Role Phone Gianna Regalado DO Primary Care Pro vider Unavailable Aurea De León MD Primary Care Provider Unavailabl e Reason for Visit * Reason Onset Date Comments REFERRAL 06/20/2015 Encounter Details Date Type Department Care Team Description 06/20/2015 Telephone Adult Medicine [address] [address] Gianna Regalado DO REFERRAL Social History Tobacco Use Types Packs/Day Years Used Date Smoking Tobacco: Never Smokeless Tobacco: Never Alcohol Use Standard Drinks/Week Comments Not Asked 0 (1 standard drink = 0.6 oz pur e alcohol) Sex Assigned at Date Recorded Female 12/20/2023 4:12 PM E DT documented as of this encounter Miscellaneous Notes * Telephone Encounter - Smaia Ring - 06/20/2015 9:12 AM EDT Pt was put on the Podiatry referrals report for: Problem visit for foot pain and heel spurs Priority: Next Available; pt was called and a letter was sent; pt has not responded. documented in this encounter Plan of Treatment Not on file documented as of this encounter Visit Diagnoses Not on filedocumented in this encounter Care Teams Hvac Design Mechanical Engineer Relationship Specialty Start Date End Date Gianna Regalado DO PCP - General Internal Medicine 08/01/13 12/16/23 Aurea De León MD PCP - General Internal Medicine 12/17/23 documented as of this encounter
--- OUTSIDE RECORDS SUMMARY | 2024-04-24 14:35 | XMS_ITS | Encounter Summary ---
Author Organization [facility] Address [address] [place] [address] Care Team Providers Care Valet Runner Name Role Phone Gianna Regalado DO Primary Care Pro vider Unavailable Aurea De León MD Primary Care Provider Unavailabl e Encounter Details Date Type Department Care Team Description 09/28/2013 Orders Only Adult Medicine [address] [address] Gianna Regalado DO Vitamin D deficiency (Primary Dx) Social History Tobacco Use Types Packs/Day Years Used Date Smoking Tobacco: Never Smokeless Tobacco: Never Alcohol Use Standard Drinks/Week Comments Not Asked 0 (1 standard drink = 0.6 oz pur e alcohol) Sex Assigned at Date Recorded Female 12/20/2023 4:12 PM E DT documented as of this encounter Plan of Treatment Not on file documented as of this encounter Visit Diagnoses Diagnosis Vitamin D deficiency- Primary Unspecified vitamin D deficiency documented in this encounter Care Teams Valet Runner Relationship Specialty Start Date End Date Gianna Regalado DO PCP - General Internal Medicine 08/01/13 12/16/23 Aurea De León MD PCP - General Internal Medicine 12/17/23 documented as of this encounter
--- OUTSIDE RECORDS SUMMARY | 2024-04-24 14:35 | XMS_ITS | Encounter Summary ---
Author Organization [facility] Address [address] [place] [address] Care Team Providers Care Dandy Operator Name Role Phone Aurea De León MD Primary Care Provider Unavailabl e Encounter Details Date Type Department Care Team Description 12/22/2023 SC[facility] [address] [phone] Brad Hatch DPM [address] [address] Social History Tobacco Use Types Packs/Day Years [...] on filedocumented in this encounter Care Teams Dandy Operator Relationship Specialty Start Date End Date Aurea De León MD PCP - General Internal Medicine 12/17/23 documented as of this encounter
--- OUTSIDE RECORDS SUMMARY | 2024-04-24 14:35 | XMS_ITS | Encounter Summary ---
Author Organization [facility] Address [address] [place] [address] Care Team Providers Care Fish And Wildlife Technician Name Role Phone Gianna Regalado DO Primary Care Pro vider Unavailable Aurea De León MD Primary Care Provider Unavailabl e Encounter Details Date Type Department Care Team Description 12/28/2017 Release of Information Medical Records [address] [place] [id number] Abstract, Provider Social History Tobacco Use Types [...] on filedocumented in this encounter Care Teams Fish And Wildlife Technician Relationship Specialty Start Date End Date Gianna Regalado DO PCP - General Internal Medicine 08/01/13 12/16/23 Aurea De León MD PCP - General Internal Medicine 12/17/23 documented as of this encounter
--- OUTSIDE RECORDS SUMMARY | 2024-04-24 14:35 | XMS_ITS | Encounter Summary ---
Author Organization [facility] Address [address] [place] [address] Care Team Providers Care Tray Line Supervisor Name Role Phone Gianna Regalado DO Primary Care Pro vider Unavailable Aurea De León MD Primary Care Provider Unavailabl e Encounter Details Date Type Department Care Team Description 08/13/2017 Delivery Nurse Report Medical Records [address] [place] [address] Jose Daniel Fierro Social History Tobacco Use [...] on filedocumented in this encounter Care Teams Tray Line Supervisor Relationship Specialty Start Date End Date Gianna Regalado DO PCP - General Internal Medicine 08/01/13 12/16/23 Aurea De León MD PCP - General Internal Medicine 12/17/23 documented as of this encounter
--- OUTSIDE RECORDS SUMMARY | 2024-04-24 14:35 | XMS_ITS | Encounter Summary ---
Author Organization [facility] Address [address] [place] [address] Care Team Providers Care Fishing Vessel Captain Name Role Phone Aurea De León MD Primary Care Provider Reason for Referral * Imaging (Routine) - Pending Review Specialty Diagnoses / Procedures Referred By Contac t Referred To Contact Radiology Diagnoses Plantar fascial fibromatosis Procedures MR Foot wo Contrast Left Brad Hatch DPM [address] [address] [facility] Referral ID Status Reason Start Date Expiration Date V isits Requested Visits Authorized [id number] Pending Review 03/30/2024 03/30/2025 1 1 * Imaging (Routine) - Pending Review Specialty Diagnoses / Procedures Referred By Alex poe Referred To Contact Radiology Diagnoses Plantar fascial fibromatosis Procedures MR Foot wo Contrast Right Brad Hatch DPM [address] [place] [address] [facility] Referral ID Status Reason Start Date Expiration Date V isits Requested Visits Authorized [id number] Pending Review 03/30/2024 03/30/2025 1 1 Reason for Visit * Reason Comments Follow-up Bilateral foot pain Encounter Details Date Type Department Care Team (Late st Contact Info) Description 03/30/2024 3:30 PM EST Office Visit Orthopedic Surgery - [place] [address] [phone] Brad Hatch DPM [address] [address] Plantar fascial fibromatosis (Primary Dx); Follow-up exam; [...] PM EST Office Visit Orthopedic Surgery - [place] [address] [phone] Brad Hatch DPM [address] [address] Scheduled Orders Name Type Priority Associated Diagnoses [...] ankle documented in this encounter Care Teams Fishing Vessel Captain Relationship Specialty Start Date End Date Aurea De León MD [address] [place] [phone] PCP - General 12/17/23 documented as of this encounter
--- OUTSIDE RECORDS SUMMARY | 2024-04-24 14:35 | XMS_ITS | Encounter Summary ---
Author Organization [facility] Address [address] [place] [address] Care Team Providers Care Workforce Staffing Advisor Name Role Phone Gianna Regalado DO Primary Care Pro vider Unavailable Aurea De León MD Primary Care Provider Unavailabl e Encounter Details Date Type Department Care Team Description 08/04/2017 Pt. Non Urgent Medic al Question Adult Medicine [address] [address] Maritza Conde PA-C Social History Tobacco Use [...] on filedocumented in this encounter Care Teams Workforce Staffing Advisor Relationship Specialty Start Date End Date Gianna Regalado DO PCP - General Internal Medicine 08/01/13 12/16/23 Aurea De León MD PCP - General Internal Medicine 12/17/23 documented as of this encounter
[2024-04-24 18:24] LABS: Influenza A PCR NEGATIVE (Negative); Influenza B PCR NEGATIVE (Negative); Resp Syncy Virus RNA Qual PCR NEGATIVE (Negative); SARS COV2 PCR INHOUSE NEGATIVE (Negative)
== END 2024-04-24 12:03 | disposition home or self-care (01) ==
LOC: HO.LAB 12:02
PROVIDERS: PCP Internal Medicine; Visit Provider Physician Assistant
DX: R09.89 Other specified symptoms and signs involving the circulatory and respiratory systems (principal); R05.8 Other specified cough; J98.8 Other specified respiratory disorders; B97.89 Other viral agents as the cause of diseases classified elsewhere
CPT/HCPCS: 0241U; 87880

== ENCOUNTER 2024-04-24 12:02 | Outpatient (AMB) | payer OTHER, SELFPAY ==
--- NOTE | 2024-04-24 12:54 | AM.OFFWIN_ITS ---
Intake Vital Signs 04/24/24 12:55 Weight 322 lb BP 126/82 Blood Pressure Location Lt brachial Position Sitting Pulse 87 Pulse Source Pulse Oximeter Temp 98.4 F Temp Source Oral Pulse Oximetry (%) 97 Oxygen Delivery Method Room Air Intake Visit Reasons: EP cough, sore throat, body aches, diarreah Intake Note: Patient here for sore throat, cough and body aches that has been present since yesterday. Patient Tobacco Use Status: Never used Tobacco Allergies No Known Allergies [No Known Allergies*] Allergy (Verified 04/24/24 13:03) Do you need a note to return to daycare/school/sports/work: Yes HPI HPI Comments History of Present Illness Details History The patient is a 29-year-old female presenting with symptoms associated with an upper respiratory infection x 1 day. She reported a sore throat and cough that began the previous day, accompanied by body aches, nausea, and diarrhea, though without fever. The patient is 7 weeks into her , with an expected date of delivery on December 10. She has a history of asthma but has not experienced recent wheezing or significant respiratory distress. Her asthma is managed with albuterol as required. Pt reports the absence of shortness of breath or abdominal discomfort. The patient engaged with her OB-MUSIC WRITER, who recommended testing for influenza, COVID-19, and RSV. No pharmacological interventions for her current symptoms have been pursued; however, therapeutic suggestions focusing on comfort measures were discussed. Physical Exam General: Cooperative, healthy appearing, comfortable and no acute distress Orientation/consciousness: Patient oriented x3 Limitations: No limitations Head: Normal to inspection Ears: Hearing grossly normal bilaterally, external ears normal and TM's normal bilaterallyr Nose: Normal external nose present, Normal nares present and No nasal discharge present Face and sinus: Normal facial exam and Yes sinuses nontender Mouth: Normal oral and palatal mucosa present and moist mucous membranes Throat: Yes tonsils normal, Yes uvula midline. Posterior oropharynx erythema Eyes: Appearance normal, both eyes and all related structures Neck: Normal visual inspection Respiratory: Clear to auscultation bilaterally. Normal respiratory effort, able to speak in complete sentences, Actively coughing, no respiratory distress, not tachypneic, no tripod positioning and no use of accessory muscles Cardiovascular: Regular rate and rhythm. Normal S1 and S2 Skin: No rashes or lesions noted Neuro: Patient oriented x3 Extremities: Normal to inspection and Yes no clubbing, cyanosis or edema PFSH Medical History (Updated 04/24/24 @ 13:22 by Aleisha Gracia PA-C) Date of last menstrual period (LMP) unknown HSV (herpes simplex virus) infection Adult BMI 45.0-49.9 kg/sq m Change in mole Prediabetes Elevated parathyroid hormone Elevated testosterone level Heavy menstrual bleeding Menometrorrhagia Hx of renal calculi Hx of constipation GERD (gastroesophageal reflux disease) Hx of iron deficiency History of asthma Surgical History History of vocal cord polypectomy Family History Father Diabetes mellitus Mother No problems noted. Brother No problems noted. Social History Household Members: Spouse Housing: House Alcohol intake: never Patient Tobacco Use Status: Never used Tobacco e-Cigarette/Vaping Use: Never Used Second Hand Smoke Exposure: No service: No Current occupational status: employed Current occupation: [employer] in [employer]. Current occupational exposures/hazards: No Sexual orientation: Straight/Heterosexual Gender identity: Female Cognitive needs: No Hearing needs: No Vision needs: No Female Reproductive History Menstrual Age of Menarche: 9 Review of Systems Const All systems reviewed & are unremarkable except as noted in HPI and below Physical Exam Vital Signs: Last Vital Signs Temp 98.4 F 04/24/24 12:55 Pulse 87 04/24/24 12:55 BP 126/82 04/24/24 12:55 Pulse Ox 97 04/24/24 12:55 Oxygen Delivery Method Room Air 04/24/24 12:55 Results AMB Rapid Strep AMB Rapid Strep Negative Last Edit by KONRAD Orellana on 04/24/24 13:19 Assessment & Plan Assessment & Plan (1) Viral respiratory infection: Code(s): J98.8 - Other specified respiratory disorders; B97.89 - Other viral agents as the cause of diseases classified elsewhere Plan: Plan Diagnostic testing for influenza, COVID-19, and RSV has been initiated with the patient informed that results are anticipated by the next day. Given her early status and history of asthma, her symptom management involves primarily non-pharmacological strategies. She is advised to use albuterol as needed and to engage in supportive measures such as adequate hydration, rest, and steam inhalation. Acetaminophen remains a recommended choice for any discomfort due to its safety profile during . The patient is instructed to stay home to manage symptoms effectively and limit the spread of any potential infection while awaiting diagnostic results. Follow-up will occur with communication of these results, and the patient has been provided a note for necessary work absence today and tomorrow. Patient was informed and verbally consented to the use of an ambient scribe for clinic note documentation during this visit Orders: Orders SARS-CoV2/FLU/RSV Today R09.89 - Other specified symptoms and signs involving the circulatory and respiratory systems Coding Level of Care Code Est Pt Level 3 (52641) Diagnoses Viral respiratory infection J98.8; B97.89
[2024-04-24 12:55] VITALS: BP 126/82; PULSE 87; TEMP 36.9; O2SAT 97
--- OUTSIDE RECORDS SUMMARY | 2024-04-24 13:25 | XMS_ITS | Encounter Summary ---
Author Organization [facility] Address [address] [place] [address] Care Team Providers Care Security Assurance Analyst Name Role Phone Aurea De León MD Primary Care Provider [phone] Reason for Visit * Reason Onset Date Comments [employer] 03/02/2024 Zepbound and leslie or auth Encounter Details Date Type Department Care Team (Late st Contact Info) Description 03/02/2024 Telephone Bariatric Surgery - [place] [address] [phone] Megan Lombardi PA [address] [address] [employer] (Zepbound and prior auth) Social History [...] PM EST Office Visit Orthopedic Surgery - [place] [address] [phone] Brad Hatch, DPM [address] [address] documented as of this encounter Visit Diagnoses Not on filedocumented in this encounter Care Teams Security Assurance Analyst Relationship Specialty Start Date End Date Aurea De León MD [address] [place] [address] PCP - General 12/17/23 documented as of this encounter
--- OUTSIDE RECORDS SUMMARY | 2024-04-24 13:25 | XMS_ITS | Encounter Summary ---
Author Organization [facility] Address [address] [place] [address] Care Team Providers Care Supervisor Pleating Name Role Phone Aurea De León MD Primary Care Provider [phone] Reason for Visit * Reason Onset Date Comments testing 04/14/2024 Encounter Details Date Type Department Care Team ([facility] Contact Info) Description 04/14/2024 Telephone Orthopedic Surgery [facility] [address] [phone] Brad Hatch, DPM [address] [address] testing Social History Tobacco Use Types Packs/Day [...] - 04/14/2024 1:17 PM EST Ariela, from [facility] Dept, is calling stating that they [...] Please advise. Please call [facility] [phone]. Thanks. documented in this encounter Plan of Treatment Upcoming Encounters Date Type Department Care Team (Late st Contact Info) Description 05/16/2024 3:30 PM EST Office Visit Orthopedic Surgery - [place] [address] [phone] Brad Hatch, DPM [address] [address] documented as of this encounter Visit Diagnoses Not on filedocumented in this encounter Care Teams Supervisor Pleating Relationship Specialty Start Date End Date Aurea De León MD [address] [place] [address] PCP - General 12/17/23 documented as of this encounter
--- OUTSIDE RECORDS SUMMARY | 2024-04-24 13:25 | XMS_ITS | Clinical Summary ---
Author Organization 175 [facility] Address [address] [place] [address] Phone Care Team Providers Care Pump House Engineer Name Role Phone Aurea De León MD Primary Care Provider [phone] Allergies Active Allergy Reactions Criticality Noted Date [...] 2 (two) times a day. 12/28/2017 Active HYDROcodone-acetami nophen (NORCO) 5-325 mg per tablet Take 1 [...] 1 (one) time each day. 12/28/2017 Active medroxyPROGESTERone (PROVERA) 10 mg tablet Take 1 tablet (10 mg total) by mouth 1 (one) time each day. 02/11/2018 Active montelukast (SINGULAIR) 10 mg tablet Take 1 tablet (10 mg total) by mouth at bedtime. 12/28/2017 Active tirzepatide, weight loss, (Zepbound) 2.5 mg/0.5 mL solution Inject 2.5 mg under the skin every 7 (seven) days. 2 mL 03/02/2024 Active diclofenac (Voltaren Arthritis Pain) 1 % topical gel Apply 4 g topically 2 (two) times a day. 240 g 1 02/23/2024 04/23/2024 penicillin v potassium (VEETID) 500 mg tablet Take 1 tablet (500 mg total) by mouth 4 (four) times a day for 10 days. 40 each 03/17/2024 03/27/2024 Active Problems Problem Noted Date Diagnosed Date [...] Care Team Description 04/14/2024 Telephone Orthopedic Surgery [facility] [address] [phone] Brad Hatch DPM testing 03/30/2024 3:30 PM EST Office Visit Orthopedic Surgery [facility] [address] [phone] Brad Hatch DPM Plantar fascial fibromatosis (Primary Dx); Follow-up exam; Equinus contracture of ankle 03/17/2024 2:21 PM EST - 03/17/2024 3:47 PM EST Emergency [facility] [address] [place] [address] Loc Linares MD Dental abscess (Primary Dx) Discharge Disposition: Home or Self Care 03/02/2024 Telephone Bariatric Surgery - [place] 175 [facility] [address] [place] [address] Megan Lombardi PA [employer] (Zepbound and prior auth) 03/01/2024 3:30 PM EST Consult Bariatric Surgery - [place] 175 [facility] [address] [place] [address] Megan Lombardi PA Class 3 severe obesity due to excess calories without serious comorbidity with body mass index (BMI) of 50.0 to 59.9 in adult (CMS/HCC) (Primary Dx) 02/23/2024 8:45 AM EST Consult Orthopedic Surgery - [place] 250 175 [facility] [address] [place] [address] Brad Hatch, DPM Plantar fascial fibromatosis (Primary Dx); Equinus contracture of ankle; Verruca plantaris from Last 3 Months Immunizations Name Administration Dates Next Due DTaP (Infanrix) 6wks to less than 7yo ,04/22/1995,1993,08/11,1993 [id number] (Pentacel) 2mo to less than 5yo 04/22/1995,1993,1993,06/02 [...] PM EST Office Visit Orthopedic Surgery - [place] [address] [phone] Brad Hatch, DPM [address] [address] Health Maintenance Due Date Last Done Comments [...] RESULTING AGENCY - 11/08/2017 4:56 PM EDT [id number] THINPREP PAP, IMAGED: NEGATIVE FOR SQUAMOUS INTRAEPITHELIAL LESION AND MALIGNANCY ??. MARIETTA MARTINEZ(ASCP) (CASE ELECTRONICALLY SIGNED 11 08 2017) ADEQUACY: SATISFACTORY. ENDOCERVICAL/TRANSFORMATION ZONE COMPONENT ABSENT. SOURCE: THINPREP PAP HPV IF ASCUS, CERVICAL, IMAGED: CLINICAL INFORMATION: HPV IF DIAGNOSIS OF ASCUS. HORMONES, PAP HX NEG, Z12.4 Andressa Galvan DO LAB CYTOLOGY ORDERAB LES HISTORICAL TESTING [...] Recently Relevant to Health Maintenance Care Teams Pump House Engineer Relationship Specialty Start Date End Date Aurea De León MD [address] [place] [address] PCP - General 12/17/23
--- OUTSIDE RECORDS SUMMARY | 2024-04-24 13:25 | XMS_ITS | Encounter Summary ---
Author Organization [facility] Address [address] [place] [address] Care Team Providers Care Chief Nurse Executive Name Role Phone Aurea De León MD Primary Care Provider [phone] Reason for Referral * Imaging (Routine) - Pending Review Specialty Diagnoses / Procedures Referred By Contac t Referred To Contact Radiology Diagnoses Plantar fascial fibromatosis Procedures MR Foot wo Contrast Left Brad Hatch DPM [address] [address] [facility] Referral ID Status Reason Start Date Expiration Date V isits Requested Visits Authorized [id number] Pending Review 03/30/2024 03/30/2025 1 1 * Imaging (Routine) - Pending Review Specialty Diagnoses / Procedures Referred By Alex poe Referred To Contact Radiology Diagnoses Plantar fascial fibromatosis Procedures MR Foot wo Contrast Right Brad Hatch DPM [address] [place] [address] [place] [address] [facility] Referral ID Status Reason Start Date Expiration Date V isits Requested Visits Authorized [id number] Pending Review 03/30/2024 03/30/2025 1 1 Reason for Visit * Reason Comments Follow-up Bilateral foot pain Encounter Details Date Type Department Care Team (Late st Contact Info) Description 03/30/2024 3:30 PM EST Office Visit Orthopedic Surgery - [place] [address] [phone] Brad Hatch DPM [address] [address] Plantar fascial fibromatosis (Primary Dx); Follow-up exam; [...] PM EST Office Visit Orthopedic Surgery - [place] [address] [phone] Brad Hatch DPM [address] [address] Scheduled Orders Name Type Priority Associated Diagnoses [...] ankle documented in this encounter Care Teams Chief Nurse Executive Relationship Specialty Start Date End Date Aurea De León MD [address] [place] [address] PCP - General 12/17/23 documented as of this encounter
== END 2024-04-24 13:24 | disposition home or self-care (01) ==
PROVIDERS: PCP Internal Medicine; Visit Provider Physician Assistant
DX: J98.8 Other specified respiratory disorders (principal); B97.89 Other viral agents as the cause of diseases classified elsewhere; Z13.9 Encounter for screening, unspecified

== ENCOUNTER → 2024-04-26 13:36 | Outpatient (BNVA) | payer OTHER, SELFPAY | PROVIDERS: PCP Internal Medicine; Visit Provider Internal Medicine | DX: Z00.00 Encounter for general adult medical examination without abnormal findings (principal); O99.211 Obesity complicating pregnancy, first trimester; E66.01 Morbid (severe) obesity due to excess calories; Z68.42 Body mass index [BMI] 45.0-49.9, adult; O99.511 Diseases of the respiratory system complicating pregnancy, first trimester; J45.40 Moderate persistent asthma, uncomplicated; O99.281 Endocrine, nutritional and metabolic diseases complicating pregnancy, first trimester; E28.2 Polycystic ovarian syndrome; O99.011 Anemia complicating pregnancy, first trimester; D50.0 Iron deficiency anemia secondary to blood loss (chronic); O99.341 Other mental disorders complicating pregnancy, first trimester; F41.1 Generalized anxiety disorder; O99.351 Diseases of the nervous system complicating pregnancy, first trimester; G44.89 Other headache syndrome; Z3A.01 Less than 8 weeks gestation of pregnancy; Z91.09 Other allergy status, other than to drugs and biological substances | CPT/HCPCS: 96127 ==